=== PATIENT | male | born 1950 | race Caucasian/White ===

== ENCOUNTER 2024-01-09 17:42 | Inpatient (IN) | payer MEDICARE, OTHER, SELFPAY ==
[2024-01-09 12:57] VITALS: BP 183/68
[2024-01-09 14:07] VITALS: BMI 28.4
[2024-01-09 14:25] LABS: % Basophils 0.3 % (0-2); % Eosinophils 0.6 % (0-6); % Immature Granulocytes 0.3 % (0-0.5); % Lymphocytes 5.6 % (20.5-51.1); % Monocytes 6.5 % (1.7-9.3); % Neutrophils 86.7 % (42.2-75.2); Absolute Eosinophils 0.1 10^3/uL (0-0.7); Absolute Lymphocytes 0.7 10^3/uL (1.2-3.4); Absolute Monocytes 0.8 10^3/uL (0.1-0.6); Absolute Neutrophils 10.3 10^3/uL (1.4-6.5); Hematocrit 40.4 % (39.0-52.0); Hemoglobin 12.6 g/dL (13.0-18.0); Mean Corp Hgb Conc. 31.2 g/dL (33.0-37.0); Mean Corpuscular Hgb 28.8 pg (27.0-31.0); Mean Corpuscular Volume 92.2 fL (80.0-94.0); Mean Platelet Volume 11.4 fL (7.4-10.4); Nucleated Red Blood Cells % 0 % (-); Platelet Count 159 10^3/uL (130-400); Red Blood Cell Count 4.38 10^6/uL (4.70-6.10); Red Cell Dist. Width 12.4 % (11.5-14.5); White Blood Cell Count 11.8 10^3/uL (4.8-10.8)
[2024-01-09 14:37] LABS: Lactic Acid 0.9 mmol/L (0.7-2.0)
[2024-01-09 14:38] LABS: ALT (SGPT) 18 U/L (0-50); AST (SGOT) 17 U/L (17-59); Albumin 4.1 g/dl (3.5-5.0); Alkaline Phosphatase 122 U/L (38-126); Blood Urea Nitrogen 43 mg/dl (9-20); Calcium 9.3 mg/dl (8.4-10.2); Carbon Dioxide 22 mmol/L (22-30); Chloride 104 mmol/L (98-107); Estimated Creatinine Clearance 39 ml/min; Glucose 416 mg/dl (70-99); Potassium 4.9 mmol/L (3.5-5.1); Sodium 134 mmol/L (135-145); Total Bilirubin 0.6 mg/dl (0.2-1.3); Total Protein 6.7 g/dl (6.3-8.2); eGFR 42.57
--- NOTE | 2024-01-09 14:51 | ED.SKININJ ---
HPI-Injury
General
Chief Complaint: Skin Problem
Source: patient
Exam Limitations: none
Time Seen by Provider: 01/09/24 13:12
Nursing documentation reviewed up to this point in time: agreed with
Travel History
Have you had any contact with someone who has COVID-19?: No
Do you have any symptoms of coronavirus? Fever > 100 degrees, chills, cough, shortness of breath, sore throat, loss of taste or smell, muscle aches, or headache?: No
History of Present Illness-Injury
Is this injury a work related problem?: No
Is pt an associate of [facility]?: No
Initial Injury comments:
Patient to ED with pain redness and swelling to right foot. States He noticed redness yesterday but unsure how long it has been red. Reports he has a callus on the bottom of his foot that he has been treating on his own. Denies fever/cills.
Brought self to ED for eval.
Past History
Past History
ED Past Medical History: CAD, Hypercholesterolemia and NIDDM
ED Past Surgical History: Cardiac
Social History
Tobacco: Non-smoker
Personal:
Living: with family
Family History
Family History: Other (Noncontributory)
Review of Systems
Review of Systems
Allergies reviewed?: Yes
All Other Systems: ROS reviewed and negative except as documented in HPI and ROS
Constitutional: Reports no symptoms
Musculoskeletal: Reports joint pain (right foot pain)
Skin: Reports no symptoms (pain redness swellint to right foot)
Neurological: Reports no symptoms
Psychiatric: Reports no symptoms
Skin Exam
other
Other:
1.5cm round ulceration to planter aspect of foot. Foul smelling, yellow drainage.
Phy Exam
General Physical Exam
General Presentation: well appearing and mild distress
General age: appears stated age
General Skin: warm and dry
General Habitus: normal
General Mental: alert
Skin Exam
Skin Exam: other (Cellulitis of left foot at MTP joint extending into joint. Ulceration on plantar surface)
Psychiatric Exam
Psychiatric Exam: normal mood/affect
Course
Orders/Labs/Results
Orders:
Orders
01/09/24 13:23
CR Foot - Right Min 3 Views Urgent
Comment:
Reason For Exam: cellulitis
01/09/24 13:24
US Periph Venous LOWER Ext RT Urgent
Comment:
Reason For Exam: right calf pain
01/09/24 14:01
Wound Culture [Wound/Abscess/Other Culture] Urgent
ASHLYN Source: Foot
Specimen Description: Right
Date Specimen was Collected: 01/09/24
Time Specimen was Collected: 13:34
01/09/24 14:13
Complete Blood Count/With Diff Urgent
Comprehensive Metabolic Panel Urgent
Lactic Acid Urgent
Blood Culture Q30M
ASHLYN Source: Blood/Venous
Specimen Description:
Blood Culture Q30M
ASHLYN Source: Blood/Venous
Specimen Description:
01/09/24 15:18
Vancomycin 1 Gram/200 ml [Vancocin] 1 gram in 200 ml IV NOW
01/09/24 17:02
Admit/Transfer Patient As Directed
Co-Sign Provider:
Level of Care: Inpatient admission
Assign to:: Medical/Surgical
Physician / Group: Hospitalist
Diagnosis: Diabetic foot ulcer
Reason for Hospitalization: Diabetic foot ulcer
Expected length of stay greater than two midnights?: Yes
ELOS- Estimated Length of Stay in days: 3
I certify the patient meets the requirements for IP care: Yes
01/09/24 17:04
Code Status As Directed
Resuscitation Status: Full Code
01/09/24 20:09
0.9% Sodium Chloride 1000 ml [Nss] 1,000 ml IV 100 mls/hr
Acetaminophen [Tylenol] 650 mg PO Q4HPRN PRN
Atorvastatin [Lipitor] 40 mg PO QPM
Clotrimazole [Lotrimin 1% Cream] See Dose Instructions TOPICAL DAILYPRN PRN
Heparin 5,000 units SC Q12
Nitroglycerin Sublingual [Nitrostat (Sublingual)] 0.4 mg SL [id number] PRN
Prednisolone Acetate [Pred Forte 1% Eye Drops] 1 drop LEFT EYE BID
VANCOMYCIN Pharmacy to Dose [VANCOCIN Pharmacy to Dose] 1 each Pharmacy To Prepare [Call Pharmacy To Prepare] 0 ml IV PER PROTOCOL
01/09/24 20:09
PODIATRY CONSULT Routine
Consulting Provider: Jaswant Moy
Was physician already notified: Yes
Reason for consult: diabetic foot ulcer
Activity As Directed
Activity Level: Out of Bed-Early Mobility
Intake/ Output As Directed
Frequency: Per unit guidelines
Vital Signs As Directed
Frequency: Per unit guidelines
DX Deep Vein Thrombosis Video Routine
01/09/24 22:00
Ampicillin/Sulbactam 3 G [Unasyn] 3 gm 0.9% Sodium Chloride 100 ml [Nss] 100 ml IV Q6
01/10/24 Breakfast
2000 calorie (17 carb) Diabetic
At Your Request: Full Participation
01/10/24 06:13
Basic Metabolic Panel IN AM
Complete Blood Count/No Diff IN AM
01/10/24 08:00
Aspirin Chewable [Low Strength Aspirin] 81 mg PO DAILY
Clopidogrel Bisulfate [Plavix] 75 mg PO DAILY
Empagliflozin [Jardiance] 10 mg PO DAILY
GlipiZIDE [Glucotrol] 5 mg PO BID@0800,1700
Losartan [Cozaar] 25 mg PO DAILY
Multivitamin [Theragran] 1 tablet PO DAILY
Prednisolone Acetate [Pred Forte 1% Eye Drops] 1 drop RIGHT EYE DAILY
Abnormal Lab Results
01/09/24
14:13
WBC 11.8 H 10^3/uL
(4.8-10.8)
RBC 4.38 L 10^6/uL
(4.70-6.10)
Hgb 12.6 L g/dL
(13.0-18.0)
MCHC 31.2 L g/dL
(33.0-37.0)
MPV 11.4 H fL
(7.4-10.4)
Absolute Neuts (auto) 10.3 H 10^3/uL
(1.4-6.5)
Absolute Lymphs (auto) 0.7 L 10^3/uL
(1.2-3.4)
Absolute Monos (auto) 0.8 H 10^3/uL
(0.1-0.6)
Neutrophils % 86.7 H %
(42.2-75.2)
Lymphocytes % 5.6 L %
(20.5-51.1)
Sodium 134 L mmol/L
(135-145)
BUN 43 H mg/dl
(9-20)
Creatinine 1.7 H mg/dL
(0.7-1.3)
Glucose 416 H mg/dl
(70-99)
01/09/24 14:13
01/09/24 14:13
Vital Signs
Initial and Last Documented VS:
Initial Vital Signs
Temp Pulse Resp BP Pulse Ox
98.6 F 87 16 183/68 98
01/09/24 12:57 01/09/24 12:57 01/09/24 12:57 01/09/24 12:57 01/09/24 12:57
Last Documented Vital Signs
Temp Pulse Resp BP Pulse Ox
98.9 F 84 16 137/63 94
01/10/24 07:40 01/10/24 07:40 01/10/24 07:40 01/10/24 07:40 01/10/24 07:40
*Radiology
Radiology exam reviewed: radiology read reviewed
*Pulse Oximetry
Patient hypoxic: no
*Critical Care Note
Total Time (30-74mins, 75-104mins- exclusive of procedures): Not Applicable
Update Note
Update Note:
Patient to ED with complaint of pain and redness to right foot. Unsure of when redness started, noticed redness yesterday. On exam today he has red involving great toe thru dorsum of right foot. Foot is painful. Ball of foot has a 1.5cm round
ulceration, foul smelling with yellow drainage. Culture obtained. He had no knowledge of ulceration, thought he had a callus there. Patient to be admitted to hospitalist service. ANtibiotics started in dept.
ED Attending Note
-
Portions of this chart may have been created with voice recognition software.� Occasional wrong word or��sound alike� substitutions may have occurred due to the inherent limitations of voice recognition software.
Discharge Plan
Departure
Patient Disposition: Admit
Date of Disposition: 01/09/24
Time of Disposition: 15:19
Presentation/result/management discussed w/ accepting MD/DO: Hospitalist
Patient with high blood pressure during this ER visit?: No
Condition: Fair
Covid-19: Not Applicable
Discharge Problem:
Cellulitis of foot, Diabetic foot ulcer
Interventions
Interventions:
*Risk Screen - Suicide Last Done: 01/09/24 22:28
*General Assessment Last Done: 01/09/24 12:57
*Neglect/Abuse Screening Last Done: 01/09/24 12:57
ED- Fall Risk Assessment Last Done: 01/09/24 14:09
*ED COVID-19 Vaccine History Last Done: 01/09/24 22:28
*Nursing Disposition Last Done: 01/09/24 19:23
ED-Skin Assessment Last Done: 01/09/24 14:09
Discharge Date and Time
Discharge Date/Time: 01/09/24 19:23
[2024-01-09] MEDS: VANCOCIN 200 IV ×2 (15:43→21:55)
[2024-01-09 16:03] VITALS: BP 159/84
--- NOTE | 2024-01-09 16:48 | HPS.HSE ---
Family Physician
-
Family Physician: Oneal Briggs
Chief Complaint
-
Foot infection
History of Present Illness
73 man with pain and redness and swelling to right foot. He noticed redness yesterday but is unsure how long it has been red. He has had a callus on the bottom of his foot that he has been treating on his own. He Denies fever/chills. 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
Medical History
Past Medical History
Past Medical History: Reports Other
Additional Past Medical History:
CAD,
Hypercholesterolemia
NIDDM
Cardiac surgery
Past Surgical History: Reports Other
Additional Past Surgical History:
cardiac surgery
Social History
Tobacco: Non-smoker
Alcohol: Occasional
Drug: None
Personal:
Living: With Family
Family History
Family History: Not pertinent
Allergies / Home Medications
Allergies reflects when Allergies were last updated in [employer].
Home Medications with original date entered in [employer]
Allergy/Medication List:
Allergies
Allergy/AdvReac Type Severity Reaction Status Date / Time
Iodinated Contrast Media Allergy Rash Verified 01/09/24 12:57
latex Allergy Rash Verified 01/09/24 12:57
silk Allergy Rash Verified 01/09/24 12:57
propoxyphene napsylate AdvReac other Verified 01/09/24 12:57
[From Darvocet-N]
Home Medications
metformin 1,000 mg tablet 1,000 mg PO BID@0800,1700 Diabetes 11/27/16
aspirin 81 mg chewable tablet 81 mg PO DAILY 12/30/16
clopidogrel 75 mg tablet 75 mg PO DAILY ##30 12/30/16
nitroglycerin 0.4 mg sublingual tablet 0.4 mg sublingual [id number] PRN chest pain ##25 12/30/16
losartan 25 mg tablet 25 mg PO DAILY Heart disease/condition 01/19/22
glipizide 5 mg tablet 5 mg PO BID@0800,1700 30 days #60 tabs 01/22/22
atorvastatin 40 mg tablet 40 mg PO QPM High cholesterol 09/05/22
clotrimazole 1 % topical cream (Antifungal (clotrimazole)) 1 applic topical DAILYPRN PRN both feet 09/05/22
empagliflozin 10 mg tablet (Jardiance) 10 mg PO DAILY Diabetes 09/05/22
prednisolone acetate 1 % eye drops,suspension 1 drp RIGHT EYE DAILY Eye condition 09/05/22
sildenafil 100 mg tablet 100 mg PO DAILY PRN ED 09/05/22
therapeutic multivitamin 1 tab PO DAILY Supplement 09/05/22
prednisolone acetate 1 % eye drops,suspension 1 drp LEFT EYE BID 01/09/24
Review of Systems
-
History Source: Patient
A 12 point ROS was completed and negative except as noted: Yes
Physical Exam
Vital Signs
Vital Signs
Temp Pulse Resp BP Pulse Ox
99.8 F 83 16 159/84 98
01/09/24 16:03 01/09/24 16:03 01/09/24 16:03 01/09/24 16:03 01/09/24 16:03
Physical Exam
General: Well Developed, Well Nourished, No Apparent Distress, Comfortable and Conversant
HEENT: NormoCephalic, No Ptosis and Nose Appears Normal
Respiratory: Clear
Cardiac: S1/S2 and Regular Rhythm
GI: Soft, Non Tender and Non Distended
Musculoskeletal: No Clubbing, No Cyanosis and No Edema
Skin: Warm and Dry; No Rash or Jaundice
Neuro: Awake, Alert, Oriented and AO x 3
Psych: Calm
Laboratory Results
-
01/09/24 14:13
01/09/24 14:13
Laboratory Results
Lactic Acid 0.9 mmol/L (0.7-2.0) 01/09/24 14:13
Total Bilirubin 0.6 mg/dl (0.2-1.3) 01/09/24 14:13
AST 17 U/L (17-59) 01/09/24 14:13
ALT 18 U/L (0-50) 01/09/24 14:13
Alkaline Phosphatase 122 U/L (38-126) 01/09/24 14:13
Data Reviewed
-
Lab Data: Labs Reviewed by me
Impression/Plan
-
IMPRESSION:
73 man with diabetic foot ulcer and cellulitis
PLAN:
1. Diabetic foot ulcer
Check A1c
Insulin as needed
Podiatry consult
Antibiotics per protocol (vanco given)
2. Cellulitis
IV antibiotics
3. BUN/Creatinine of 43(at baseline)/1.7 (baseline 1.3), likely MARTINEZ
IV fluids
Recheck in am
4. Mild hyponatremia of 134, likely hypovolemia
IV fluids
Recheck in am
Full code
Heparin for DVTp
[2024-01-09 18:41] VITALS: BP 146/73
--- NOTE | 2024-01-09 20:14 | PHA.VAN.IN ---
Assessment
- Assessment
Renal Function: Unknown baseline (likely elevated from baseline, currently 1.7 vs ranged 1-.3 in 2021)
Concomitant Antimicrobials: ampicillin/sulbactam
Plan
- Plan
Initial / Loading Dose: 2000mg 01/08 (1g at 15:43 PLUS 1g - admin pending)
Maintenance Regimen: dosing by level
Monitoring: random 01/09 06
Pharmacokinetics Vancomycin I
- -
Patient Age: 73
Patient Sex: Male
Vancomycin Day #: 1
Indication: Skin And Soft Tissue
Requesting Provider: Dr. Barillas
Pertinent Antimicrobial Allergies:
no pertinent antibiotic allergies
Height / Weight:
Height 5 ft 8 in
Actual Weight 84.6 kg
Pertinent Past Medical History: DM
- Vital Signs / Lab Results
Temp Pulse Resp BP Pulse Ox
99.8 F 81 16 146/73 99
01/09/24 16:03 01/09/24 18:41 01/09/24 18:41 01/09/24 18:41 01/09/24 18:41
Lab Results - Hematology
01/09/24
14:13
WBC 11.8 H
Lab Results - Chemistry
01/09/24
14:13
BUN 43 H
Creatinine 1.7 H
Estimated Creat Clear 39
Albumin 4.1
01/09/24
14:13
Lactic Acid 0.9
[2024-01-09 20:55] VITALS: BP 153/71
--- NOTE | 2024-01-09 21:30 | PTCARENOTE ---
Patient admitted from ED. Patient is AAO x3, on RA, in no acute distress. Patient oriented to room and call george is within reach.
--- NOTE | 2024-01-09 21:30 | PTCARENOTE ---
Patient admitted from ED
[2024-01-09] MEDS: LIPITOR 40 MG PO (21:54)
[2024-01-09] MEDS: HEPARIN 5000 UNITS SC (21:54)
[2024-01-09] MEDS: PRED FORTE 1% EYE DROPS 1 DROP LEFT EYE (21:54)
[2024-01-09] MEDS: NSS 1000 IV (21:56)
[2024-01-09] MEDS: TYLENOL 650 MG PO (22:20)
[2024-01-09 22:57] LABS: Glucose - Point of Care 320 mg/dl (70-99)
[2024-01-09] MEDS: NOVOLOG FLEXPEN 4 UNITS SC (23:21)
[2024-01-09] MEDS: UNASYN IV (23:22)
[2024-01-09 23:25] VITALS: BP 129/66
[2024-01-10] MEDS: UNASYN IV ×4 (06:05→23:09)
[2024-01-10] MEDS: NSS 1000 IV ×2 (06:05→23:16)
[2024-01-10 07:40] VITALS: BP 137/63
[2024-01-10 08:49] LABS: Hematocrit 37.8 % (39.0-52.0); Hemoglobin 12.1 g/dL (13.0-18.0); Mean Corpuscular Hgb 28.7 pg (27.0-31.0); Mean Corpuscular Volume 89.8 fL (80.0-94.0); Mean Platelet Volume 11.9 fL (7.4-10.4); Platelet Count 151 10^3/uL (130-400); Red Blood Cell Count 4.21 10^6/uL (4.70-6.10); Red Cell Dist. Width 12.4 % (11.5-14.5); White Blood Cell Count 8.1 10^3/uL (4.8-10.8)
--- NOTE | 2024-01-10 08:59 | W.CS.POD ---
Consult Summary - Podiatry
-
Pt seen bedside for diabetic neuropathic ulcer and high glucose He noticed the redness a couple of days ago. He was unaware that he had an ulcer on his foot. He sees Tania Gambino DPM regularly but it has been two months since his last visit
cellulitis right foot with necrotic ulcer sub 1, foul odor, deep ulcer, no probe to bone
x-ray negative for osteomyelitis
recommend MRI to rule out osteomyelitis
sharp debridement of ulcer bandage applied
will follow tomorrow and results of MRI
if positive for osteo will recommend surgical debridement
[2024-01-10 09:05] LABS: Vancomycin Random 14.2 ug/ml
[2024-01-10 09:10] LABS: Blood Urea Nitrogen 35 mg/dl (9-20); Calcium 8.7 mg/dl (8.4-10.2); Carbon Dioxide 20 mmol/L (22-30); Chloride 110 mmol/L (98-107); Estimated Creatinine Clearance 44 ml/min; Glucose 209 mg/dl (70-99); Potassium 4.1 mmol/L (3.5-5.1); Sodium 137 mmol/L (135-145); eGFR 49.47
[2024-01-10] MEDS: THERAGRAN 1 TABLET PO (09:11)
[2024-01-10] MEDS: JARDIANCE 10 MG PO (09:11)
[2024-01-10] MEDS: GLUCOTROL 5 MG PO ×2 (09:11→17:44)
[2024-01-10] MEDS: LOW STRENGTH ASPIRIN 81 MG PO (09:11)
[2024-01-10] MEDS: COZAAR 25 MG PO (09:11)
[2024-01-10] MEDS: PLAVIX 75 MG PO (09:11)
[2024-01-10] MEDS: PRED FORTE 1% EYE DROPS 1 DROP LEFT EYE ×2 (09:12→19:55)
[2024-01-10] MEDS: PRED FORTE 1% EYE DROPS 1 DROP RIGHT EYE (09:12)
[2024-01-10] MEDS: HEPARIN 5000 UNITS SC ×2 (09:12→19:56)
--- NOTE | 2024-01-10 11:07 | PHA.VAN.FU ---
Vancomycin Assessment / Plan
- Assessment
Renal Function: SCR Decreasing
WBC's are: Trending Down
In the past 24 hrs, patient has been: Afebrile
Concomitant Antimicrobials: Ampicillin-sulbactam
- Assessment - Therapeutic Drug Monitoring
Random Level: R = 14.2 ~ 8hrs after split 2gm load (1gm 1543, 1gm 2155)
- Dosing Plan
Continue: Dosing by level
Dosing by Level: Re-dose today (Vanc 1gm (11.8mg/kg))
- Monitoring Plan
Random Level: 4/1 AM
- Follow Up
Pharmacy will continue to follow.
Vancomycin Follow UP
- -
Patient Age: 73
Patient Sex: Male
Vancomycin Day #: 2
Indication: Skin And Soft Tissue
Requesting Provider: Dr. Barillas
Pertinent Antimicrobial Allergies:
no pertinent antibiotic allergies
Height / Weight:
Height 5 ft 8 in
Actual Weight 84.6 kg
Pertinent Past Medical History: DM
- Vital Signs / Lab Results
Temp Pulse Resp BP Pulse Ox
98.9 F 84 16 137/63 94
01/10/24 07:40 01/10/24 07:40 01/10/24 07:40 01/10/24 07:40 01/10/24 07:40
Lab Results - Hematology
01/09/24 01/10/24
14:13 06:13
WBC 11.8 H 8.1
Lab Results - Chemistry
01/09/24 01/10/24
14:13 06:13
BUN 43 H 35 H
Creatinine 1.7 H 1.5 H
Estimated Creat Clear 39 44
Albumin 4.1
01/09/24
14:13
Lactic Acid 0.9
Therapeutic Drug Monitoring
Random Vancomycin 14.2 ug/ml 01/10/24 06:13
[2024-01-10] MEDS: VANCOCIN 200 IV (13:00)
--- NOTE | 2024-01-10 14:44 | W.PN.HOSP.TC ---
Today's Communication/Plan
-
f/u cultures
mrsa swab
ivf
abx
Assessment / Plan
Assessment / Plan
Physical Exam
General: Well Developed, Well Nourished, No Apparent Distress, Comfortable and Conversant
HEENT: NormoCephalic, No Ptosis and Nose Appears Normal
Respiratory: Clear
Cardiac: S1/S2 and Regular Rhythm
GI: Soft, Non Tender and Non Distended
Musculoskeletal: No Clubbing, No Cyanosis and No Edema
Skin: Warm and Dry; No Rash or Jaundice
Neuro: Awake, Alert, Oriented and AO x 3
Psych: Calm
73 man with diabetic foot ulcer and cellulitis
PLAN:
#Diabetic foot ulcer
#Sepsis
#Cellulitis
Check A1c
AISS
Podiatry consult
Antibiotics per protocol (vanco given)
MRI with no evidence of osteo
F/u cultures
MRSA swab
#MARTINEZ
-prenal v septic atn
-monitor with fluids
#Mild hyponatremia
-monitor with resuscitation
#DM
-AISS
cont jardiance, glipizide
#HTN
#HLD
-cont home meds
although hold arb
Full code
Heparin for DVT
Total time spent on today's encounter was 50 minutes which included time spent in counseling the patient/family regarding diagnosis and treatment plan as listed above, goals of care, and symptom management. Case was discussed with nursing staff,
specialists, and care coordinators/case management. All labs and imaging personally reviewed by me. Remainder the time spent in detailed review of previous records, lab data, imaging, and other medical provider documentation.
Anticipated Discharge: > 48 hours
Subjective/Interval History
-
Date of Service: January 10, 2024
no acute events; Podiatry saw patient - sharp debridement of ulcer and bandage applied
Objective Data
-
Labs:
Laboratory Results
01/10/24
06:13
WBC 8.1
Hgb 12.1 L
Hct 37.8 L
Plt Count 151
Sodium 137
Potassium 4.1
Chloride 110 H
Carbon Dioxide 20 L
BUN 35 H
Creatinine 1.5 H
Glucose 209 H
Calcium 8.7
Vital Signs:
Vital Signs
Temp Pulse Resp BP Pulse Ox
98.9 F 84 16 137/63 94
01/10/24 07:40 01/10/24 07:40 01/10/24 07:40 01/10/24 07:40 01/10/24 07:40
I&O
01/09/24 01/10/24 01/11/24
06:59 06:59 06:59
Output Total 600 / 600
Balance -600 / -600
Review of Systems
-
History Source: Patient
All other systems: Not reviewed unless documented
Physical Exam
-
General: Well Developed
HEENT: Normocephalic
Respiratory: Clear to Auscultation
Cardiac: Regular Rhythm
GI: Soft
Genito-urinary: No Costovertebral Tender
Musculoskeletal: Normal Gait & Station
Psych: Calm
Data Reviewed
-
Diagnostic Radiology: Image personally visualized and interpreted and Report Reviewed by me
Ultrasound: Report Reviewed by me
MRI: Image personally visualized and interpreted and Report Reviewed by me
Labs: Labs Reviewed by me
[2024-01-10 15:13] VITALS: BP 156/66
[2024-01-10 16:49] LABS: Glucose - Point of Care 307 mg/dl (70-99)
[2024-01-10] MEDS: NOVOLOG FLEXPEN-LOW RESISTANCE 4 UNITS SC (17:43)
[2024-01-10] MEDS: LIPITOR 40 MG PO (17:44)
[2024-01-10] MEDS: NSS IV (19:54)
[2024-01-10 22:36] LABS: Glucose - Point of Care 232 mg/dl (70-99)
[2024-01-10 23:00] VITALS: BP 143/53
[2024-01-11] MEDS: UNASYN IV ×4 (05:00→23:18)
[2024-01-11 06:41] LABS: Hematocrit 37.6 % (39.0-52.0); Hemoglobin 11.9 g/dL (13.0-18.0); Mean Corp Hgb Conc. 31.6 g/dL (33.0-37.0); Mean Corpuscular Hgb 28.6 pg (27.0-31.0); Mean Corpuscular Volume 90.4 fL (80.0-94.0); Mean Platelet Volume 11.5 fL (7.4-10.4); Platelet Count 148 10^3/uL (130-400); Red Blood Cell Count 4.16 10^6/uL (4.70-6.10); Red Cell Dist. Width 12.2 % (11.5-14.5); White Blood Cell Count 7.8 10^3/uL (4.8-10.8)
[2024-01-11 07:01] LABS: Blood Urea Nitrogen 33 mg/dl (9-20); Calcium 9.1 mg/dl (8.4-10.2); Carbon Dioxide 22 mmol/L (22-30); Chloride 109 mmol/L (98-107); Estimated Creatinine Clearance 50 ml/min; Glucose 154 mg/dl (70-99); Potassium 4.3 mmol/L (3.5-5.1); Sodium 140 mmol/L (135-145); eGFR 58.73
[2024-01-11 07:28] LABS: Vancomycin Random 12.7 ug/ml
[2024-01-11 07:35] VITALS: BP 154/75
[2024-01-11 07:40] LABS: Glucose - Point of Care 153 mg/dl (70-99)
--- NOTE | 2024-01-11 08:26 | W.PN.POD ---
Today's Communication
Today's Communication
foot ulcer is stable for discharge pending wound culture results
Assessment / Plan
-
recommend he follow up with wound care center
recommend wedge shoe for discharge
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
Subjective
Chief Complaint
infected diabetic ulcer right foot, MRI had no evidence of osteomyelitis , wound culture pending
Subjective
no pain in the foot, resting comfortably
Objective
Temp Pulse Resp BP Pulse Ox
98.4 F 78 17 154/75 97
01/11/24 07:35 01/11/24 07:35 01/11/24 07:35 01/11/24 07:35 01/11/24 07:35
01/11/24 06:17
01/11/24 06:17
Vital Signs and Lab results were reviewed.
Review of Systems
Review of Systems
Review of Systems: No Fever and No Chills
Physical Exam
Physical Exam
Skin: Warm, Necrotic and Neurotrophic Ulcer
Neuro: AO x 3
Vascular: Skin Temperature Warm to Warm
Dorsalis Pedis: Diminished
Posterior Tibialis: Diminished
[2024-01-11 08:46] LABS: Glycohemoglobin (HgbA1c) 8.5 % (4.0-5.6)
--- NOTE | 2024-01-11 09:17 | PHA.VAN.FU ---
Vancomycin Assessment / Plan
- Assessment
Renal Function: SCR Decreasing
WBC's are: WNL
In the past 24 hrs, patient has been: Afebrile
Concomitant Antimicrobials: Ampicillin/Sulbatam
- Assessment - Therapeutic Drug Monitoring
Random Level: 12.7
- Dosing Plan
Dosing by Level: Re-dose today (1000mg)
- Monitoring Plan
Random Level: Ordered for 01/12/24 @0600
- Follow Up
Pharmacy will continue to follow.
Vancomycin Follow UP
- -
Patient Age: 73
Patient Sex: Male
Vancomycin Day #: 3
Indication: Skin And Soft Tissue
Requesting Provider: Dr. Barillas, Dr. Le
Pertinent Antimicrobial Allergies:
no pertinent antibiotic allergies
Height / Weight:
Height 5 ft 8 in
Actual Weight 84.6 kg
Pertinent Past Medical History: DM
- Vital Signs / Lab Results
Temp Pulse Resp BP Pulse Ox
98.4 F 78 17 154/75 97
01/11/24 07:35 01/11/24 07:35 01/11/24 07:35 01/11/24 07:35 01/11/24 07:35
Lab Results - Hematology
01/09/24 01/10/24 01/11/24
14:13 06:13 06:17
WBC 11.8 H 8.1 7.8
Lab Results - Chemistry
01/09/24 01/10/24 01/11/24
14:13 06:13 06:17
BUN 43 H 35 H 33 H
Creatinine 1.7 H 1.5 H 1.3
Estimated Creat Clear 39 44 50
Albumin 4.1
01/09/24
14:13
Lactic Acid 0.9
Microbiology Results
01/09/24 14:13 Blood Culture - Preliminary
Blood/Venous No Growth in 24 hours- Final report to follow
01/09/24 14:01 Wound Culture - Preliminary
Foot - Right Gram Stain - Preliminary
01/09/24 14:13 Blood Culture - Preliminary
Blood/Venous No Growth in 24 hours- Final report to follow
Therapeutic Drug Monitoring
Random Vancomycin 12.7 ug/ml 01/11/24 06:17
[2024-01-11] MEDS: NSS 1000 IV (09:49)
[2024-01-11] MEDS: NOVOLOG FLEXPEN-LOW RESISTANCE 1 UNITS SC (09:50)
[2024-01-11] MEDS: HEPARIN 5000 UNITS SC ×2 (09:50→21:17)
[2024-01-11] MEDS: JARDIANCE 10 MG PO (09:51)
[2024-01-11] MEDS: PRED FORTE 1% EYE DROPS 1 DROP LEFT EYE ×2 (09:51→21:18)
[2024-01-11] MEDS: PRED FORTE 1% EYE DROPS 1 DROP RIGHT EYE (09:51)
[2024-01-11] MEDS: LOW STRENGTH ASPIRIN 81 MG PO (09:51)
[2024-01-11] MEDS: THERAGRAN 1 TABLET PO (09:51)
[2024-01-11] MEDS: GLUCOTROL 5 MG PO ×2 (09:51→18:46)
[2024-01-11] MEDS: PLAVIX 75 MG PO (09:51)
[2024-01-11] MEDS: VANCOCIN 200 IV (10:00)
--- NOTE | 2024-01-11 12:13 | W.PN.HOSP.TC ---
Today's Communication/Plan
-
await final wound cultures
abx
anticipate dc within 24 hours
Assessment / Plan
Assessment / Plan
Physical Exam
General: Well Developed, Well Nourished, No Apparent Distress, Comfortable and Conversant
HEENT: NormoCephalic, No Ptosis and Nose Appears Normal
Respiratory: Clear
Cardiac: S1/S2 and Regular Rhythm
GI: Soft, Non Tender and Non Distended
Musculoskeletal: No Clubbing, No Cyanosis and No Edema
Skin: Warm and Dry; No Rash or Jaundice
Neuro: Awake, Alert, Oriented and AO x 3
Psych: Calm
73 man with diabetic foot ulcer and cellulitis
PLAN:
#Diabetic foot ulcer
#Sepsis
#Cellulitis
Podiatry consult -ntd at this time
F/u wound care outpatient
Wedge shoe for discharge
Follow up is/it project manager this week
Still pending final wound culture results
Cont Unasyn
MRI with no evidence of osteo
F/u cultures
#MARTINEZ
-prenal v septic atn
-monitor with fluids - resolving
#Mild hyponatremia
-monitor with resuscitation
-resolving
#DM
-AISS
cont jardiance, glipizide
Check A1c - 8.5; DM educator consulted
#HTN
#HLD
-cont home meds
although hold arb
Full code
Heparin for DVT ppx
Anticipated Discharge: Within 24 hours
Subjective/Interval History
-
Date of Service: January 11, 2024
mri neg for osteo
Objective Data
-
Labs:
Laboratory Results
01/11/24
06:17
WBC 7.8
Hgb 11.9 L
Hct 37.6 L
Plt Count 148
Sodium 140
Potassium 4.3
Chloride 109 H
Carbon Dioxide 22
BUN 33 H
Creatinine 1.3
Glucose 154 H
Calcium 9.1
Vital Signs:
Vital Signs
Temp Pulse Resp BP Pulse Ox
98.4 F 78 17 154/75 97
01/11/24 07:35 01/11/24 07:35 01/11/24 07:35 01/11/24 07:35 01/11/24 07:35
I&O
01/10/24 01/11/24 01/12/24
06:59 06:59 06:59
Intake Total 3200 / 3200
Output Total 600 / 600 850 / 850
Balance -600 / -600 2350 / 2350
Review of Systems
-
History Source: Patient
All other systems: Not reviewed unless documented
Physical Exam
-
General: Well Developed
HEENT: Normocephalic
Respiratory: Clear to Auscultation
Cardiac: Regular Rhythm
GI: Soft
Genito-urinary: No Costovertebral Tender
Musculoskeletal: Normal Gait & Station
Psych: Calm
Data Reviewed
-
Diagnostic Radiology: Image personally visualized and interpreted and Report Reviewed by me
Ultrasound: Report Reviewed by me
MRI: Image personally visualized and interpreted and Report Reviewed by me
Labs: Labs Reviewed by me
[2024-01-11 12:18] LABS: Glucose - Point of Care 286 mg/dl (70-99)
[2024-01-11] MEDS: NOVOLOG FLEXPEN-LOW RESISTANCE 3 UNITS SC (13:23)
--- NOTE | 2024-01-11 15:18 | PTCARENOTE ---
TT rolan Quinones Douse to notify of request for Diabetic teaching per Dr. Mimi abel.
[2024-01-11 15:24] VITALS: BP 153/69
[2024-01-11 16:21] LABS: Glucose - Point of Care 229 mg/dl (70-99)
--- NOTE | 2024-01-11 16:33 | CM ---
site acquisition manager reviewed patient's chart and met with patient and patient lives with his spouse in a 2 story home, patient is independent with adl's and ambulation, patient has glucometer and shower chair in home, per patient he has a follow up with
podiatry after discharge, and dose not feel he will need visiting nurses.
Pharmacy; [facility]
PCP: Dr. Briggs
Plan; Home with spouse no needs.
[2024-01-11] MEDS: NOVOLOG FLEXPEN-LOW RESISTANCE 2 UNITS SC (18:44)
[2024-01-11] MEDS: LIPITOR 40 MG PO (18:45)
[2024-01-11 23:00] VITALS: BP 137/50
[2024-01-12] MEDS: UNASYN IV ×2 (06:17→11:50)
[2024-01-12 07:01] LABS: Glucose - Point of Care 89 mg/dl (70-99)
[2024-01-12] MEDS: NOVOLOG FLEXPEN-LOW RESISTANCE SC (07:49)
[2024-01-12 07:52] LABS: Hematocrit 36.3 % (39.0-52.0); Hemoglobin 11.7 g/dL (13.0-18.0); Mean Corp Hgb Conc. 32.2 g/dL (33.0-37.0); Mean Corpuscular Hgb 28.5 pg (27.0-31.0); Mean Corpuscular Volume 88.3 fL (80.0-94.0); Mean Platelet Volume 11.6 fL (7.4-10.4); Platelet Count 155 10^3/uL (130-400); Red Blood Cell Count 4.11 10^6/uL (4.70-6.10); Red Cell Dist. Width 12.1 % (11.5-14.5); White Blood Cell Count 7.3 10^3/uL (4.8-10.8)
[2024-01-12 08:16] LABS: Vancomycin Random 11.4 ug/ml
[2024-01-12 08:28] LABS: Blood Urea Nitrogen 30 mg/dl (9-20); Calcium 8.9 mg/dl (8.4-10.2); Carbon Dioxide 22 mmol/L (22-30); Chloride 110 mmol/L (98-107); Estimated Creatinine Clearance 47 ml/min; Glucose 93 mg/dl (70-99); Potassium 4.2 mmol/L (3.5-5.1); Sodium 138 mmol/L (135-145); eGFR 53.74
[2024-01-12 08:39] VITALS: BP 145/76
[2024-01-12] MEDS: LOW STRENGTH ASPIRIN 81 MG PO (09:35)
[2024-01-12] MEDS: HEPARIN 5000 UNITS SC (09:35)
[2024-01-12] MEDS: GLUCOTROL 5 MG PO (09:35)
[2024-01-12] MEDS: THERAGRAN 1 TABLET PO (09:35)
[2024-01-12] MEDS: JARDIANCE 10 MG PO (09:35)
[2024-01-12] MEDS: PRED FORTE 1% EYE DROPS 1 DROP LEFT EYE (09:35)
[2024-01-12] MEDS: PLAVIX 75 MG PO (09:35)
[2024-01-12] MEDS: PRED FORTE 1% EYE DROPS 1 DROP RIGHT EYE (09:35)
--- NOTE | 2024-01-12 10:32 | PN.DE.MGMTRT ---
Insulin Management
- -
01/12/2024 Diabetes Management Consult
Patient admitted 01/08 for R foot swelling and redness. PMH CAD, HCL, type 2 diabetes since 2001. A1C on admission 8.5%, cr 1.3, eGFR 58.73, BIN 33.
Patient is awake, alert and oriented, able to discuss his diabetes management. Prior to admission was taking glipizide 5 mg BID with Jardiance 10 mg daily and metformin 1000 BID. Metformin is currently being held. Will make no change to current
regimen
Glucose yesterday was as high as 299. This AM glucose is 89. Talked with patient at length about amount of CHO he consumes at each meal, he admits he has been taking excess carbs and will focus on increasing protein.
Patient sees BASHIR Briggs at [facility]. He has a working glucose monitor. Instructed to test before breakfast and 2 hours after each meal.
Patient for possible discharge.
Diabetes History
- -
Type of Diabetes: 2
Pre-Admission Diabetes Regimen
01/12/24
07:33
Creatinine 1.4 H
Lab Results
Hemoglobin A1c 8.5 % (4.0-5.6) H 01/11/24 06:17
Insulin Pump Settings
IP Diabetes Regimen
01/11/24 01/11/24 01/12/24
12:10 16:20 06:59
Glucose
POC Glucose 286 H 229 H 89
01/12/24
07:33
Glucose 93
POC Glucose
Meal type: Dinner
Meal type: Lunch
Meal type: Breakfast
Amount consumed: 100%
Amount consumed: 100%
Amount consumed: 100%
Patient Education
--- NOTE | 2024-01-12 10:41 | PHA.VAN.FU ---
Vancomycin Assessment / Plan
- Assessment
Renal Function: Stable
WBC's are: WNL
In the past 24 hrs, patient has been: Afebrile
Concomitant Antimicrobials: ampicillin/sulbactam
- Assessment - Therapeutic Drug Monitoring
Random Level: 11.4 - drawn ~21.5H after previous dose of 1000mg
- Dosing Plan
Dosing by Level: Re-dose today (Vanc 1250mg)
Dosing Comments: level has steadily decreased with 1g daily dosing - trial higher dosing
- Monitoring Plan
Random Level: 01/12 0600
- Follow Up
Pharmacy will continue to follow.
Vancomycin Follow UP
- -
Patient Age: 73
Patient Sex: Male
Vancomycin Day #: 4
Indication: Skin And Soft Tissue
Requesting Provider: Dr. Barillas
Pertinent Antimicrobial Allergies:
no pertinent antibiotic allergies
Height / Weight:
Height 5 ft 8 in
Actual Weight 84.6 kg
Pertinent Past Medical History: DM
- Vital Signs / Lab Results
Temp Pulse Resp BP Pulse Ox
98.9 F 72 16 145/76 97
01/12/24 08:39 01/12/24 08:39 01/12/24 08:39 01/12/24 08:39 01/12/24 08:39
Lab Results - Hematology
01/09/24 01/10/24 01/11/24
14:13 06:13 06:17
WBC 11.8 H 8.1 7.8
01/12/24
07:33
WBC 7.3
Lab Results - Chemistry
01/09/24 01/10/24 01/11/24
14:13 06:13 06:17
BUN 43 H 35 H 33 H
Creatinine 1.7 H 1.5 H 1.3
Estimated Creat Clear 39 44 50
Albumin 4.1
01/12/24
07:33
BUN 30 H
Creatinine 1.4 H
Estimated Creat Clear 47
Albumin
01/09/24
14:13
Lactic Acid 0.9
Microbiology Results
01/10/24 16:15 MRSA Screen - Final
Nose No Methicillin Resistant Staphylococcus aureus isolated.
01/09/24 14:01 Wound Culture - Preliminary
Foot - Right Gram negative bacilli
Staphylococcus species
Gram Stain - Preliminary
01/09/24 14:13 Blood Culture - Preliminary
Blood/Venous No Growth in 48 hours- Final report to follow
01/09/24 14:13 Blood Culture - Preliminary
Blood/Venous No Growth in 48 hours- Final report to follow
Therapeutic Drug Monitoring
Random Vancomycin 11.4 ug/ml 01/12/24 07:33
[2024-01-12 11:26] LABS: Glucose - Point of Care 215 mg/dl (70-99)
--- NOTE | 2024-01-12 11:29 | PTCARENOTE ---
Report given and Pt care passed onto RIGOBERTO Bautista for remainder of this shift
[2024-01-12] MEDS: NOVOLOG FLEXPEN-LOW RESISTANCE 2 UNITS SC (11:47)
[2024-01-12] MEDS: VANCOCIN 275 MG IV (12:22)
--- NOTE | 2024-01-12 13:22 | W.PN.HOSP.TC ---
Addendum entered and electronically signed by Paula Castorena MD 01/12/24 14:58:
total DC time 35 min
Original Note:
Today's Communication/Plan
-
see A/P
Assessment / Plan
Assessment / Plan
Physical Exam
General: Well Developed, Well Nourished, No Apparent Distress, Comfortable and Conversant
HEENT: NormoCephalic, No Ptosis and Nose Appears Normal
Respiratory: Clear
Cardiac: S1/S2 and Regular Rhythm
GI: Soft, Non Tender and Non Distended
Musculoskeletal: No Clubbing, No Cyanosis and No Edema
Skin: Warm and Dry; No Rash or Jaundice
Neuro: Awake, Alert, Oriented and AO x 3
Psych: Calm
73 man with diabetic foot ulcer and cellulitis
A/P:
# Sepsis POA due to R foot cellulitis from Diabetic foot ulcer
Podiatry consulted, s/p soft incisional debridement of all necrotic tissue of the right foot ulceration.
MRI ruled out osteomyelitis.
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
wound culture with E coli, Klebsiella, Staph species
Can discharge with Cefdinir with Doxycycline for 10 days
No ambulatory dysfunction
# MARTINEZ, prerenal vs septic ATN, improved
SCr 1.7 on admission, SCr at 1.4 today
outpt BMP monitoring
# Mild hyponatremia, resolved
# DM
ISS
cont Jardiance, glipizide
A1c 8.5%
DM educator consulted
# HTN
# HLD
cont home meds
although hold ARB until further directed by PCP outpt
Full code
Heparin for DVT ppx
Anticipated Discharge: Today
Subjective/Interval History
-
Date of Service: January 12, 2024
Objective Data
-
Labs:
Laboratory Results
01/12/24
07:33
WBC 7.3
Hgb 11.7 L
Hct 36.3 L
Plt Count 155
Sodium 138
Potassium 4.2
Chloride 110 H
Carbon Dioxide 22
BUN 30 H
Creatinine 1.4 H
Glucose 93
Calcium 8.9
Vital Signs:
Vital Signs
Temp Pulse Resp BP Pulse Ox
37.2 C 72 16 145/76 97
01/12/24 08:39 01/12/24 08:39 01/12/24 08:39 01/12/24 08:39 01/12/24 08:39
I&O
01/11/24 01/12/24 01/13/24
06:59 06:59 06:59
Intake Total 3200 / 3200 720 / 720
Output Total 850 / 850
Balance 2350 / 2350 720 / 720
Review of Systems
-
All other systems: Reviewed and negative
Data Reviewed
-
Labs: Labs Reviewed by me
--- NOTE | 2024-01-12 14:01 | CM ---
Patient seen at bedside. Patient for discharge today. IMM completed and signed form placed on chart. Patient to drive self home, no needs identified at this time. CM will continue to follow for discharge planning needs.
Plan; home with no needs
[2024-01-12 14:18] VITALS: BP 165/74
--- NOTE | 2024-01-12 14:43 | W.DCSUMMARY ---
Discharge Summary
Discharge Data
Date of Admission: 01/09/24
Date of Discharge: 01/12/24
-
Pending Results: No
Hospital Course
Principal Diagnosis:
Sepsis due to Right foot cellulitis from Diabetic foot ulcer
Improved acute kidney injury (MARTINEZ)
Chronic Diagnoses:�
[id number] diabetes
Hypertension
Hyperlipidemia
Consultations:�
Podiatry
Procedures:�
Soft incisional debridement of all necrotic tissue of the right foot ulceration by mail order biller.
Clinical course:�
This is a 73 year old man presented with diabetic foot ulcer and cellulitis.
Problem 1:
Sepsis due to Right foot cellulitis from Diabetic foot ulcer.
He underwent incisional debridement of necrotic tissue of the right foot ulceration by mail order biller.
His MRI ruled out osteomyelitis.
His wound culture grew E coli, Klebsiella, and Staph species.
He received Unasyn and vancomycin while in the hospital, and was discharged with Cefdinir with Doxycycline for another 10 days.
He can follow-up with wound care and his mail order biller outpatient following discharge.
Problem 2:
Improved acute kidney injury.
His serum creatinine was at 1.7 on admission, which improved to 1.4 on the day of discharge.
He can follow-up with BMP outpatient with result to his PCP.
As for the rest of his medical problems, they were stable during his hospital stay.
Discharge Plan
-
Patient Disposition: Home (Routine Discharge)
Discharge Diagnosis/Procedures: diabetic foot ulcer and cellulitis, status post soft incisional debridement of all necrotic tissue of the right foot ulceration.
Condition: Fair
Diet: Low Fat, Low Cholesterol and Diabetic, Carb Controlled
Activity: As tolerated
Blood Work: bmp in 1 week with pcp
Referrals:
podiatry, provider [Other] - in less than 1 week (f/u this week)
Oneal Briggs PA-C [Family Provider] - in less than 1 week
Additional Discharge Medication Instructions: take Cefdinir with Doxycycline for 10 days.
Avoid dairy product and the sun while on doxycycline.
Hold losartan and metformin due to elevated creatinine level (kidney dysfunction)
Prescriptions:
New
cefdinir 300 mg capsule
300 mg PO Q12H 10 Days Qty: 20 0RF
doxycycline hyclate 100 mg capsule
100 mg PO BID 10 Days Qty: 20 0RF
Continued
clopidogrel 75 MG tablet
75 mg PO DAILY Qty: 30 3RF
nitroglycerin 0.4 MG tablet, sublingual
0.4 mg sublingual [id number] PRN (Reason: chest pain) Qty: 25 3RF
aspirin 81 MG tablet,chewable
81 mg PO DAILY 0RF
glipizide 5 MG tablet
5 mg PO BID@0800,1700 30 Days Qty: 60 0RF
therapeutic multivitamin Tablet
1 tab PO DAILY
sildenafil 100 mg Tablet
100 mg PO DAILY PRN (Reason: ED)
prednisolone acetate 1 % drops,suspension
1 drp RIGHT EYE DAILY
Jardiance 10 mg tablet
10 mg PO DAILY
atorvastatin 40 MG tablet
40 mg PO QPM
clotrimazole [Antifungal (clotrimazole)] 1 APPLIC cream
1 applic topical DAILYPRN PRN (Reason: both feet)
prednisolone acetate 1 % Drops,Suspension
1 drp LEFT EYE BID
Held
metformin 1,000 MG tablet
1,000 mg PO BID@0800,1700
Hold Instructions: Resume on 01/20/24. until your kidney function returns to normal
losartan 25 MG tablet
25 mg PO DAILY
Hold Instructions: Resume on 01/20/24. until further directed by your PCP
Discharge Orders:
Discharge Patient (As Directed); Ordered 01/12/24
Ordered By: Paula Castorena
Discharge Date and Time
Print Language: CHINESE
--- NOTE | 2024-01-12 15:02 | WOUNDNOTE ---
JOSEPHINE RN note: Patient admitted with Cellulitis of R foot, diabetic ulcer on 01/09/24
See H&P for complete history.
PMH:NIDDM, CAD,FL, callus R plantar foot.
Wound Location and type/assessment: Patient admitted with: Callus to R plantar foot. Dr. Duncan saw patient for ulcer to R foot and cellulitis few days ago. MRI negative for osteomyelitis. Nurse Asia asked me to see patient before discharge,
he wants to drive himself home. 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 Patient able to ambulate on own. Confirmed he follows with Dr. Gambino Neurodiagnostic Tech and will make an apt with her as soon as
he gets home.
Plan: Applied alginate and silicone foam. Patient states he has alginate and dry dressings at home and will follow up with Neurodiagnostic Tech. Patient said he will ask Dr. Gambino if needs to follow up at wound care center also.
Confirmed orders with Dr. Castorena. Updated care plan, nurse and discharge instructions.
== END 2024-01-12 15:01 | disposition home or self-care (01) | DRG 854 ==
LOC: 4 WEST ACU 17:42
PROVIDERS: Internal Medicine; Nurse Practitioner; ADMITTING PHYSICIAN Internal Medicine; ATTENDING PHYSICIAN Internal Medicine; EMERGENCY PHYSICIAN Emergency Medicine; FAMILY PHYSICIAN Physician Assistant Medical; OTHER PHYSICIAN Podiatrist
PROC: 0JBQ0ZZ Excision of Right Foot Subcutaneous Tissue and Fascia, Open Approach (ICD-10-PCS; 2024-01-10)
DX: A41.51 Sepsis due to Escherichia coli [E. coli] (principal); E87.1 Hypo-osmolality and hyponatremia; L97.419 Non-pressure chronic ulcer of right heel and midfoot with unspecified severity; L03.115 Cellulitis of right lower limb; N17.9 Acute kidney failure, unspecified; E11.621 Type 2 diabetes mellitus with foot ulcer; E11.40 Type 2 diabetes mellitus with diabetic neuropathy, unspecified; E11.622 Type 2 diabetes mellitus with other skin ulcer; E78.00 Pure hypercholesterolemia, unspecified; E86.1 Hypovolemia; I10 Essential (primary) hypertension; I25.10 Atherosclerotic heart disease of native coronary artery without angina pectoris; Z91.041 Radiographic dye allergy status; Z91.040 Latex allergy status; Z88.8 Allergy status to other drugs, medicaments and biological substances; Z91.048 Other nonmedicinal substance allergy status; Z79.82 Long term (current) use of aspirin; Z79.84 Long term (current) use of oral hypoglycemic drugs; Z79.02 Long term (current) use of antithrombotics/antiplatelets; Z86.73 Personal history of transient ischemic attack (TIA), and cerebral infarction without residual deficits
CPT/HCPCS: 73630; 73720; 80048; 80053; 80202; 82962; 83036; 83605; 85025; 85027; 87040; 87070; 87077; 87147; 87186; 87205; 93971; 96365; 99285; A9575

== ENCOUNTER → 2024-01-18 13:00 | Outpatient (REF) | payer MEDICARE, OTHER, SELFPAY ==
[2024-01-18 14:56] LABS: Blood Urea Nitrogen 39 mg/dl (9-20); Calcium 9.7 mg/dl (8.4-10.2); Carbon Dioxide 21 mmol/L (22-30); Chloride 101 mmol/L (98-107); Glucose 338 mg/dl (70-99); Potassium 5.1 mmol/L (3.5-5.1); Sodium 137 mmol/L (135-145); eGFR 37.25
== END ==
LOC: REG 13:00
PROVIDERS: ATTENDING PHYSICIAN Internal Medicine; FAMILY PHYSICIAN Physician Assistant Medical
DX: S37.009A Unspecified injury of unspecified kidney, initial encounter (principal)
CPT/HCPCS: 36415; 80048

== ENCOUNTER → 2024-01-28 09:13 | Outpatient (REF) | payer MEDICARE, OTHER, SELFPAY ==
[2024-01-28 09:54] LABS: % Basophils 0.7 % (0-2); % Eosinophils 1.5 % (0-6); % Immature Granulocytes 0.5 % (0-0.5); % Lymphocytes 10.7 % (20.5-51.1); % Monocytes 7.1 % (1.7-9.3); % Neutrophils 79.5 % (42.2-75.2); Absolute Basophils 0.1 10^3/uL (0-0.2); Absolute Eosinophils 0.2 10^3/uL (0-0.7); Absolute Immature Granulocytes 0.1 10^3/uL (0-0.05); Absolute Lymphocytes 1.2 10^3/uL (1.2-3.4); Absolute Monocytes 0.8 10^3/uL (0.1-0.6); Absolute Neutrophils 8.6 10^3/uL (1.4-6.5); Hematocrit 40.8 % (39.0-52.0); Hemoglobin 12.8 g/dL (13.0-18.0); Mean Corp Hgb Conc. 31.4 g/dL (33.0-37.0); Mean Corpuscular Hgb 28.1 pg (27.0-31.0); Mean Corpuscular Volume 89.5 fL (80.0-94.0); Mean Platelet Volume 11.1 fL (7.4-10.4); Nucleated Red Blood Cells % 0 % (-); Platelet Count 246 10^3/uL (130-400); Red Blood Cell Count 4.56 10^6/uL (4.70-6.10); Red Cell Dist. Width 12.5 % (11.5-14.5); White Blood Cell Count 10.8 10^3/uL (4.8-10.8)
[2024-01-28 12:09] LABS: ALT (SGPT) 17 U/L (0-50); AST (SGOT) 17 U/L (17-59); Alkaline Phosphatase 93 U/L (38-126); Blood Urea Nitrogen 41 mg/dl (9-20); Calcium 9.8 mg/dl (8.4-10.2); Carbon Dioxide 20 mmol/L (22-30); Chloride 102 mmol/L (98-107); Glucose 143 mg/dl (70-99); HDL Cholesterol 37 mg/dl; LDL Cholesterol, Calculated 44 mg/dl; Potassium 4.8 mmol/L (3.5-5.1); Sodium 137 mmol/L (135-145); Total Bilirubin 0.5 mg/dl (0.2-1.3); Total Cholesterol 119 mg/dl (50-199); Total Protein 6.5 g/dl (6.3-8.2); Triglyceride 193 mg/dl (10-149); Very Low Density Lipoprotein 38 mg/dl (0-30); eGFR 39.75
[2024-01-28 12:20] LABS: Glycohemoglobin (HgbA1c) 8.3 % (4.0-5.6)
[2024-01-28 12:35] LABS: PSA, Total - Diagnostic 2.45 ng/ml (0.0-4.0); TSH Reflex To Free T4 2.94 uIU/ml (0.47-4.68)
== END ==
LOC: REG 09:13
PROVIDERS: ATTENDING PHYSICIAN Physician Assistant Medical
DX: E11.65 Type 2 diabetes mellitus with hyperglycemia (principal); E78.2 Mixed hyperlipidemia; R53.82 Chronic fatigue, unspecified; N40.0 Benign prostatic hyperplasia without lower urinary tract symptoms
CPT/HCPCS: 36415; 80053; 80061; 83036; 84153; 84443; 85025

== ENCOUNTER 2024-02-10 17:06 | Inpatient (IN) | payer MEDICARE, OTHER, SELFPAY ==
[2024-02-10 13:02] VITALS: BP 139/61
--- NOTE | 2024-02-10 14:09 | ED.GENMED ---
History of Present Illness
<Sophy Calixto PA-C - Last Filed: 02/10/24 22:02>
General
Chief Complaint: Skin Problem
Source: patient
Exam Limitations: none
Time Seen by Provider: 02/10/24 13:26
Nursing documentation reviewed up to this point in time: agreed with
Travel History
Have you had any contact with someone who has COVID-19?: No
Do you have any symptoms of coronavirus? Fever > 100 degrees, chills, cough, shortness of breath, sore throat, loss of taste or smell, muscle aches, or headache?: No
History of Present Illness
History of Present Illness:
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 Patient recently admitted at [facility] from 01/08-01/11
for diabetic right foot infection, was treated with IV antibiotics and discharged on doxycycline and cefdinir which he took for 20 days following discharge from hospital, finishing course about 5 days ago. He has been following with car wash manager
weekly. He reports initial gradual improvement following discharge with an acute worsening starting about 2 days ago. He states wound on sole of right foot seems unchanged but noticed worsening redness and swelling surrounding wound on the medial
aspect of his right great toe. He reports significant pain in his right foot which was most severe last night. He scheduled appt with car wash manager for follow-up this morning and was sent to the emergency department for admission due to concern of
deeper foot infection and involvement of bone.
Patient denies any fever, chills, nausea, vomiting, chest pain, shortness of breath.
Past History
<Sophy Calixto PA-C - Last Filed: 02/10/24 22:02>
Past History
ED Past Medical History: CAD, Hypercholesterolemia and NIDDM
ED Past Surgical History: Cardiac
Social History
Tobacco: Non-smoker
Personal:
Living: with family
Family History
Family History: Other (Noncontributory)
Phy Exam
<Sophy Calixto PA-C - Last Filed: 02/10/24 22:02>
Physical Exam
Physical Exam:
General: In no apparent distress, nontoxic appearing
Vitals: Vital signs stable, afebrile
HEENT: Atraumatic, normocephalic; pupils equal round reactive light bilaterally protecting airway
Neck: appears supple, trachea midline
CV: Regular rate and rhythm, heart sounds normal, no evidence of cyanosis
Resp: No evidence of respiratory distress, lungs clear bilaterally
Abd: Soft, nontender, non-distended
Extremities: Open ulcer at medial aspect of first metatarsal draining purulent discharge with surrounding erythema, edema; stable ulcer on sole of right foot at base of first metatarsal; 1+ pitting edema of right foot and ankle; DP and PT pulses
palpable and equal bilaterally; right lower extremity neurovascularly intact
Neuro: alert and oriented; grossly intact
Psych: Normal affect
Skin: Open wounds of right foot at medial aspect of first metatarsal and sole of right foot at base of first metatarsal
Course
<Sophy Calixto PA-C - Last Filed: 02/10/24 22:02>
Orders/Labs/Results
Orders:
Orders
02/10/24 14:15
Morphine Sulfate 2 mg IV NOW STA
Foot, Right 3 View [CR Foot - Right Min 3 Views] Urgent
Comment:
Reason For Exam: diabetic foot infection
02/10/24 14:20
Piperacillin/Tazo 3.375 Gram [Zosyn] 3.375 gram in 50 ml IV NOW
02/10/24 14:31
CRP [C-Reactive Protein] Urgent
Complete Blood Count/With Diff Urgent
Comprehensive Metabolic Panel Urgent
ESR [Erythrocyte Sed Rate] Urgent
Lactic Acid Q4H
Comment: CANCEL 2nd LACTIC ACID IF 1st LACTIC ACID IS LESS THAN 2
Blood Culture Q30M
ASHLYN Source: Blood/Venous
Specimen Description:
Blood Culture Q30M
ASHLYN Source: Blood/Venous
Specimen Description:
02/10/24 14:43
Vancomycin [Vancocin] 2,000 mg 0.9% Sodium Chloride 500 ml [Nss] 500 ml IV NOW
02/10/24 Dinner
2000 calorie (17 carb) Diabetic
At Your Request: Full Participation
02/10/24 16:01
Wound Culture [Wound/Abscess/Other Culture] Urgent
ASHLYN Source: Foot
Specimen Description: Right
Date Specimen was Collected: 02/10/24
Time Specimen was Collected: 15:57
02/10/24 16:38
Admit/Transfer Patient As Directed
Co-Sign Provider:
Level of Care: Inpatient admission
Assign to:: Medical/Surgical
Physician / Group: dheeraj
Diagnosis: diabetic foot infection
Reason for Hospitalization: diabetic foot infection
Expected length of stay greater than two midnights?: Yes
ELOS- Estimated Length of Stay in days: 2
I certify the patient meets the requirements for IP care: Yes
Code Status As Directed
Resuscitation Status: Full Code
02/10/24 17:33
0.9% Sodium Chloride 1000 ml [Nss] 1,000 ml IV 80 mls/hr
Clotrimazole [Lotrimin 1% Cream] 1 applic TOPICAL DAILYPRN PRN
Dextrose 50%-Water [Dextrose 50% Syringe] 12.5 grams IV [id number] PRN
Glucagon [GlucaGen] 1 mg IM PRN PRN
HYDROmorphone [Dilaudid] 0.5 mg IV Q4HPRN PRN
Nitroglycerin Sublingual [Nitrostat (Sublingual)] 0.4 mg SL [id number] PRN
02/10/24 17:33
MR Right Le No Joint With Routine
Comment:
Reason For Exam: right medial infection, plantar ulcer osteo
Recent pill cam endoscopy?: No
Activity As Directed
Activity Level: As Tolerated
Bedside Glucose Monitoring As Directed
Frequency: AC&HS
Additional Instructions:: Change to q6h if pt on TPN, tube feeding or not eating
Pneumatic Compression Sleeves As Directed
Type: Knee high
Vital Signs As Directed
Frequency: Per unit guidelines
DX Deep Vein Thrombosis Video Routine
02/10/24 18:00
Atorvastatin [Lipitor] 40 mg PO QPM
VANCOMYCIN Pharmacy to Dose [VANCOCIN Pharmacy to Dose] 1 each Pharmacy To Prepare [Call Pharmacy To Prepare] 0 ml IV PER PROTOCOL
02/10/24 19:00
Insulin Aspart Corrective Low [Novolog Flexpen-Low Resistance] See Protocol SC AC
02/10/24 20:00
Metoprolol [Lopressor] 25 mg PO BID
Piperacillin/Tazo 3.375 Gram [Zosyn] 3.375 gram in 50 ml IV Q6H
Prednisolone Acetate [Pred Forte 1% Eye Drops] See Dose Instructions LEFT EYE BID
02/11/24 06:00
Complete Blood Count/With Diff IN AM
Comprehensive Metabolic Panel IN AM
Glycohemoglobin (HgbA1c) IN AM
02/11/24 08:00
Aspirin Chewable [Low Strength Aspirin] 81 mg PO DAILY
Empagliflozin [Jardiance] 10 mg PO DAILY
Multivitamin [Theragran] 1 tablet PO DAILY
Prednisolone Acetate [Pred Forte 1% Eye Drops] See Dose Instructions RIGHT EYE DAILY
Abnormal Lab Results
02/10/24
14:31
WBC 13.6 H 10^3/uL
(4.8-10.8)
RBC 3.93 L 10^6/uL
(4.70-6.10)
Hgb 10.9 L g/dL
(13.0-18.0)
Hct 34.3 L %
(39.0-52.0)
MCHC 31.8 L g/dL
(33.0-37.0)
MPV 10.7 H fL
(7.4-10.4)
Abs Immat Gran (auto) 0.1 H 10^3/uL
(0-0.05)
Absolute Neuts (auto) 11.5 H 10^3/uL
(1.4-6.5)
Absolute Lymphs (auto) 1.0 L 10^3/uL
(1.2-3.4)
Absolute Monos (auto) 0.8 H 10^3/uL
(0.1-0.6)
Immature Gran % 0.7 H %
(0-0.5)
Neutrophils % 84.0 H %
(42.2-75.2)
Lymphocytes % 7.6 L %
(20.5-51.1)
ESR 64 H mm/hour
(0-20)
Chloride 111 H mmol/L
(98-107)
Carbon Dioxide 17 L mmol/L
(22-30)
BUN 31 H mg/dl
(9-20)
Creatinine 1.6 H mg/dL
(0.7-1.3)
Glucose 107 H mg/dl
(70-99)
C-Reactive Protein 73.40 H mg/L
(0.0-10.00)
Total Protein 5.7 L g/dl
(6.3-8.2)
Albumin 3.2 L g/dl
(3.5-5.0)
02/10/24 14:31
02/10/24 14:31
Vital Signs
Initial and Last Documented VS:
Initial Vital Signs
Temp Pulse Resp BP Pulse Ox
99.0 F 82 16 139/61 96
02/10/24 13:02 02/10/24 13:02 02/10/24 13:02 02/10/24 13:02 02/10/24 13:02
Last Documented Vital Signs
Temp Pulse Resp BP Pulse Ox
99.5 F 77 18 126/63 96
02/10/24 23:00 02/10/24 23:00 02/10/24 23:00 02/10/24 23:00 02/10/24 23:00
<Disha Guthrie DO - Last Filed: 02/10/24 23:36>
Orders/Labs/Results
Orders:
Orders
02/10/24 14:15
Morphine Sulfate 2 mg IV NOW STA
Foot, Right 3 View [CR Foot - Right Min 3 Views] Urgent
Comment:
Reason For Exam: diabetic foot infection
02/10/24 14:20
Piperacillin/Tazo 3.375 Gram [Zosyn] 3.375 gram in 50 ml IV NOW
02/10/24 14:31
CRP [C-Reactive Protein] Urgent
Complete Blood Count/With Diff Urgent
Comprehensive Metabolic Panel Urgent
ESR [Erythrocyte Sed Rate] Urgent
Lactic Acid Q4H
Comment: CANCEL 2nd LACTIC ACID IF 1st LACTIC ACID IS LESS THAN 2
Blood Culture Q30M
ASHLYN Source: Blood/Venous
Specimen Description:
Blood Culture Q30M
ASHLYN Source: Blood/Venous
Specimen Description:
02/10/24 14:43
Vancomycin [Vancocin] 2,000 mg 0.9% Sodium Chloride 500 ml [Nss] 500 ml IV NOW
02/10/24 Dinner
2000 calorie (17 carb) Diabetic
At Your Request: Full Participation
02/10/24 16:01
Wound Culture [Wound/Abscess/Other Culture] Urgent
ASHLYN Source: Foot
Specimen Description: Right
Date Specimen was Collected: 02/10/24
Time Specimen was Collected: 15:57
02/10/24 16:38
Admit/Transfer Patient As Directed
Co-Sign Provider:
Level of Care: Inpatient admission
Assign to:: Medical/Surgical
Physician / Group: dheeraj
Diagnosis: diabetic foot infection
Reason for Hospitalization: diabetic foot infection
Expected length of stay greater than two midnights?: Yes
ELOS- Estimated Length of Stay in days: 2
I certify the patient meets the requirements for IP care: Yes
Code Status As Directed
Resuscitation Status: Full Code
02/10/24 17:33
0.9% Sodium Chloride 1000 ml [Nss] 1,000 ml IV 80 mls/hr
Clotrimazole [Lotrimin 1% Cream] 1 applic TOPICAL DAILYPRN PRN
Dextrose 50%-Water [Dextrose 50% Syringe] 12.5 grams IV [id number] PRN
Glucagon [GlucaGen] 1 mg IM PRN PRN
HYDROmorphone [Dilaudid] 0.5 mg IV Q4HPRN PRN
Nitroglycerin Sublingual [Nitrostat (Sublingual)] 0.4 mg SL [id number] PRN
02/10/24 17:33
MR Right Le No Joint With Routine
Comment:
Reason For Exam: right medial infection, plantar ulcer osteo
Recent pill cam endoscopy?: No
Activity As Directed
Activity Level: As Tolerated
Bedside Glucose Monitoring As Directed
Frequency: AC&HS
Additional Instructions:: Change to q6h if pt on TPN, tube feeding or not eating
Pneumatic Compression Sleeves As Directed
Type: Knee high
Vital Signs As Directed
Frequency: Per unit guidelines
DX Deep Vein Thrombosis Video Routine
02/10/24 18:00
Atorvastatin [Lipitor] 40 mg PO QPM
VANCOMYCIN Pharmacy to Dose [VANCOCIN Pharmacy to Dose] 1 each Pharmacy To Prepare [Call Pharmacy To Prepare] 0 ml IV PER PROTOCOL
02/10/24 19:00
Insulin Aspart Corrective Low [Novolog Flexpen-Low Resistance] See Protocol SC AC
02/10/24 20:00
Metoprolol [Lopressor] 25 mg PO BID
Piperacillin/Tazo 3.375 Gram [Zosyn] 3.375 gram in 50 ml IV Q6H
Prednisolone Acetate [Pred Forte 1% Eye Drops] See Dose Instructions LEFT EYE BID
02/11/24 06:00
Complete Blood Count/With Diff IN AM
Comprehensive Metabolic Panel IN AM
Glycohemoglobin (HgbA1c) IN AM
02/11/24 08:00
Aspirin Chewable [Low Strength Aspirin] 81 mg PO DAILY
Empagliflozin [Jardiance] 10 mg PO DAILY
Multivitamin [Theragran] 1 tablet PO DAILY
Prednisolone Acetate [Pred Forte 1% Eye Drops] See Dose Instructions RIGHT EYE DAILY
Abnormal Lab Results
02/10/24
14:31
WBC 13.6 H 10^3/uL
(4.8-10.8)
RBC 3.93 L 10^6/uL
(4.70-6.10)
Hgb 10.9 L g/dL
(13.0-18.0)
Hct 34.3 L %
(39.0-52.0)
MCHC 31.8 L g/dL
(33.0-37.0)
MPV 10.7 H fL
(7.4-10.4)
Abs Immat Gran (auto) 0.1 H 10^3/uL
(0-0.05)
Absolute Neuts (auto) 11.5 H 10^3/uL
(1.4-6.5)
Absolute Lymphs (auto) 1.0 L 10^3/uL
(1.2-3.4)
Absolute Monos (auto) 0.8 H 10^3/uL
(0.1-0.6)
Immature Gran % 0.7 H %
(0-0.5)
Neutrophils % 84.0 H %
(42.2-75.2)
Lymphocytes % 7.6 L %
(20.5-51.1)
ESR 64 H mm/hour
(0-20)
Chloride 111 H mmol/L
(98-107)
Carbon Dioxide 17 L mmol/L
(22-30)
BUN 31 H mg/dl
(9-20)
Creatinine 1.6 H mg/dL
(0.7-1.3)
Glucose 107 H mg/dl
(70-99)
C-Reactive Protein 73.40 H mg/L
(0.0-10.00)
Total Protein 5.7 L g/dl
(6.3-8.2)
Albumin 3.2 L g/dl
(3.5-5.0)
02/10/24 14:31
02/10/24 14:31
Vital Signs
Initial and Last Documented VS:
Initial Vital Signs
Temp Pulse Resp BP Pulse Ox
99.0 F 82 16 139/61 96
02/10/24 13:02 02/10/24 13:02 02/10/24 13:02 02/10/24 13:02 02/10/24 13:02
Last Documented Vital Signs
Temp Pulse Resp BP Pulse Ox
99.5 F 77 18 126/63 96
02/10/24 23:00 02/10/24 23:00 02/10/24 23:00 02/10/24 23:00 02/10/24 23:00
<Sophy Calixto PA-C - Last Filed: 02/10/24 22:02>
MDM/Problems Addressed
Differential Diagnosis Includes:
Not limited to: Worsening diabetic foot infection, cellulitis, osteomyelitis
MDM/Problems Addressed:
Patient is a 73-year-old male presenting from podiatry office with open ulcers on right foot with worsening surrounding redness, swelling, pain over the past 2 days. Recently admitted for IV antibiotics at [facility] and discharged with oral Doxy
plus cefdinir. Seen by podiatry today and referred to emergency due to concern for persistent diabetic right foot infection and concern for progression to osteomyelitis. No fever, chills, systemic signs of infection. Vitals stable. Patient is
afebrile. Exam as above. Ulcer on medial aspect of right first metatarsal draining purulent discharge with surrounding redness, swelling. Ulcer on sole of right foot at base of first metatarsal appears stable. Labs show leukocytosis of 13.6 with
left shift. Renal insufficiency noted on labs appears chronic. Lactic acid is normal. Both CRP and ESR are elevated. There is some concern for osteomyelitis although x-ray shows no evidence of bony involvement. Wound culture and blood cultures
pending. Will admit to hospitalist for MRI, podiatry consult, IV antibiotics. Vancomycin and Zosyn started.
Chronic conditions affecting care:
Type 2 diabetes
Acute Exacerbation and/or Progression of Chronic Illness:
Worsening diabetic foot infection
<Sophy Calixto PA-C - Last Filed: 02/10/24 22:02>
*Radiology
Radiology exam reviewed: preliminary read by ED provider and radiology read reviewed
*Pulse Oximetry
Patient hypoxic: no
*EKG
Interpreted by ED Provider?: NA
*Field Services Analyst Interpretation
Rate: Field Services Analyst- N/A
*Critical Care Note
Total Time (30-74mins, 75-104mins- exclusive of procedures): Not Applicable
Data Reviewed
Review of Other/Old Records Reveals: Labs, Records, Radiology Studies, Progress Notes and Discharge Summary
Source: previous hospital records
<Sophy Calixto PA-C - Last Filed: 02/10/24 22:02>
Patient Management
Discussion with other providers: Hospitalist
ED Attending Note
<Sophy Calixto PA-C - Last Filed: 02/10/24 22:02>
-
Portions of this chart may have been created with voice recognition software.� Occasional wrong word or��sound alike� substitutions may have occurred due to the inherent limitations of voice recognition software.
<Disha Guthrie DO - Last Filed: 02/10/24 23:36>
ED Attending Note
Patient seen and examined by attending physician: Yes
I performed a history and physical exam of patient and discussed management with resident, I reviewed resident's note and agree with documented findings and plan of care.: Yes
ED Attending Note:
73-year-old male history of diabetes, CAD, hyperlipidemia presenting with right foot infection. Patient states that he was seen here approximately 1 month ago for infection of right foot. Patient was seen by podiatry and transition to oral
doxycycline and cefdinir which he completed last week. Patient states that over the weekend he had a callus on the medial aspect of his right base of the big toe that opened and then worsened to communicate with ulcer at the base of the right first
toe. Patient reports increased smell and discharge from wounds. Patient states he was seen by his car wash manager who recommended to come to the ER for admission and IV antibiotics. Patient denies fever or chills. Heart regular rate rhythm, lungs
clear. Ulcer to the lateral aspect and base of the right first toe sole of foot towards distal first metatarsal draining purulent discharge, surrounding erythema. WBC, ESR and CRP elevated. Concern for diabetic foot wound. Gave vancomycin and
Zosyn, will admit for podiatry consultation.
Discharge Plan
Departure
Patient Disposition: Admit
Date of Disposition: 02/10/24
Time of Disposition: 16:07
Presentation/result/management discussed w/ accepting MD/DO: Hospitalist
Discharge Problem:
Diabetic infection of right foot
Interventions
Interventions:
*Risk Screen - Suicide Last Done: 02/10/24 13:02
*General Assessment Last Done: 02/10/24 14:02
*Neglect/Abuse Screening Last Done: 02/10/24 13:02
ED- Fall Risk Assessment Last Done: 02/10/24 16:30
*ED COVID-19 Vaccine History Last Done: 02/10/24 13:02
*Nursing Disposition Last Done: 02/10/24 17:30
ED-Skin Assessment Last Done: 02/10/24 16:29
Discharge Date and Time
Discharge Date/Time: 02/10/24 17:31
[2024-02-10] MEDS: MORPHINE SULFATE 2 MG IV (14:38)
[2024-02-10] MEDS: ZOSYN 50 IV ×2 (14:39→20:44)
[2024-02-10 14:40] VITALS: BMI 26.8
[2024-02-10 14:55] LABS: % Basophils 0.3 % (0-2); % Eosinophils 1.4 % (0-6); % Immature Granulocytes 0.7 % (0-0.5); % Lymphocytes 7.6 % (20.5-51.1); Absolute Eosinophils 0.2 10^3/uL (0-0.7); Absolute Immature Granulocytes 0.1 10^3/uL (0-0.05); Absolute Monocytes 0.8 10^3/uL (0.1-0.6); Absolute Neutrophils 11.5 10^3/uL (1.4-6.5); Hematocrit 34.3 % (39.0-52.0); Hemoglobin 10.9 g/dL (13.0-18.0); Mean Corp Hgb Conc. 31.8 g/dL (33.0-37.0); Mean Corpuscular Hgb 27.7 pg (27.0-31.0); Mean Corpuscular Volume 87.3 fL (80.0-94.0); Mean Platelet Volume 10.7 fL (7.4-10.4); Nucleated Red Blood Cells % 0 % (-); Platelet Count 210 10^3/uL (130-400); Red Blood Cell Count 3.93 10^6/uL (4.70-6.10); Red Cell Dist. Width 12.5 % (11.5-14.5); White Blood Cell Count 13.6 10^3/uL (4.8-10.8)
[2024-02-10 15:05] LABS: ALT (SGPT) 29 U/L (0-50); AST (SGOT) 22 U/L (17-59); Albumin 3.2 g/dl (3.5-5.0); Alkaline Phosphatase 104 U/L (38-126); Blood Urea Nitrogen 31 mg/dl (9-20); Calcium 8.8 mg/dl (8.4-10.2); Carbon Dioxide 17 mmol/L (22-30); Chloride 111 mmol/L (98-107); Estimated Creatinine Clearance 41 ml/min; Glucose 107 mg/dl (70-99); Potassium 4.1 mmol/L (3.5-5.1); Sodium 137 mmol/L (135-145); Total Bilirubin 0.4 mg/dl (0.2-1.3); Total Protein 5.7 g/dl (6.3-8.2); eGFR 45.78
[2024-02-10 15:11] LABS: Lactic Acid 0.8 mmol/L (0.7-2.0)
[2024-02-10 15:22] LABS: Erythrocyte Sed Rate 64 mm/hour (0-20)
[2024-02-10] MEDS: VANCOCIN 540 MG IV (15:58)
[2024-02-10 16:04] VITALS: BP 162/67
--- NOTE | 2024-02-10 16:18 | WOUNDNOTE ---
right medial foot, multiple attempts to get clearer picture, unable with ED camera.
--- NOTE | 2024-02-10 16:43 | HPS.HSE ---
Addendum entered and electronically signed by Clyde Post MD 02/10/24 16:45:
Held Plavix for potential debridement.
Original Note:
Family Physician
-
Family Physician: Oneal Briggs
Chief Complaint
-
foot infection
History of Present Illness
73-year-old male past medical history of diabetes, CAD with stents, prior CABG, hypertension, hyperlipidemia, presenting to the ER from manager commission office due to persistent diabetic right foot infection. Patient was recently admitted to [place] from
01/08 to 01/11 for diabetic right foot infection and was treated with IV antibiotics and discharged on doxycycline and cefdinir which she took for 20 days following discharge from the hospital which she finished 5 days ago. He had gradual improvement
following discharge but then had acute worsening 2 days ago. He states that the wound on the sole of the right foot seems unchanged but noticed that there was worsening redness and swelling surrounding the wound on the medial aspect of the right
great toe where he previously had a callus. He has significant pain of his right foot. He saw manager commission today who sent him to the emergency room. He denies any fevers or chills, nausea or vomiting or chest pain or shortness of breath.
He does consume 1 drink of alcohol every few days. He denies smoking.
Medical History
Past Medical History
Past Medical History: Reports Other (diabetes, CAD with stents, prior CABG, hypertension, hyperlipidemia)
Past Surgical History: Reports None
Social History
Tobacco: Non-smoker
Alcohol: Occasional
Drug: None
Family History
Family History: Not pertinent
Allergies / Home Medications
Allergies reflects when Allergies were last updated in [employer].
Home Medications with original date entered in [employer]
Allergy/Medication List:
Allergies
Allergy/AdvReac Type Severity Reaction Status Date / Time
Iodinated Contrast Media Allergy Rash Verified 01/09/24 12:57
latex Allergy Rash Verified 01/09/24 12:57
silk Allergy Rash Verified 01/09/24 12:57
propoxyphene napsylate AdvReac other Verified 01/09/24 12:57
[From Jennifer]
Home Medications
nitroglycerin 0.4 mg sublingual tablet 0.4 mg sublingual [id number] PRN chest pain ##25 12/30/16
atorvastatin 40 mg tablet 40 mg PO QPM High cholesterol 09/05/22
clotrimazole 1 % topical cream (Antifungal (clotrimazole)) 1 applic topical DAILYPRN PRN both feet RASH 09/05/22
empagliflozin 10 mg tablet (Jardiance) 10 mg PO DAILY Diabetes 09/05/22
prednisolone acetate 1 % eye drops,suspension 1 drp RIGHT EYE DAILY Eye condition 09/05/22
sildenafil 100 mg tablet 100 mg PO DAILY PRN ED 09/05/22
therapeutic multivitamin 1 tab PO DAILY Supplement 09/05/22
prednisolone acetate 1 % eye drops,suspension 1 drp LEFT EYE BID Eye Condition 01/09/24
aspirin 81 mg chewable tablet 81 mg PO DAILY Blood Clot Prevention/Tx 02/10/24
clopidogrel 75 mg tablet 75 mg PO DAILY Blood Clot Prevention/Tx 02/10/24
glipizide 5 mg tablet 5 mg PO BID@0800,1700 Diabetes 02/10/24
losartan 25 mg tablet 25 mg PO DAILY Blood Pressure 02/10/24
metoprolol tartrate 25 mg tablet 25 mg PO BID Blood Pressure 02/10/24
Review of Systems
-
History Source: Patient
A 12 point ROS was completed and negative except as noted: Yes
Constitutional: Reports No Symptoms
EENT: Reports No Symptoms
Respiratory: Reports No Symptoms
Cardiac: Reports No Symptoms
Abdomen/GI: Reports No Symptoms
: Reports No Symptoms
Musculoskeletal: Reports See HPI
Skin: Reports No Symptoms
Neurological: Reports No Symptoms
Endocrine: Reports No Symptoms
Hematologic/Lymphatic: Reports No Symptoms
Psych: Reports No Symptoms
Physical Exam
Vital Signs
Vital Signs
Temp Pulse Resp BP Pulse Ox
99.0 F 86 18 162/67 98
02/10/24 13:02 02/10/24 16:04 02/10/24 16:04 02/10/24 16:04 02/10/24 16:04
Physical Exam
General: Well Developed, Well Nourished and No Apparent Distress
HEENT: NormoCephalic, Moist mucous membranes and Atraumatic
Respiratory: Clear
Cardiac: S1/S2 and Regular Rhythm; No Murmur or Rub
GI: Soft, Non Tender, Non Distended and Normal Bowel Sounds; No Organomegaly
Rectal: Deferred by Provider
Musculoskeletal: No Clubbing, No Cyanosis and No Edema
Skin: No Rash
Neuro: Nonfocal/grossly intact
Laboratory Results
-
02/10/24 14:31
02/10/24 14:31
Laboratory Results
Lactic Acid Cancelled 02/10/24 18:30
Total Bilirubin 0.4 mg/dl (0.2-1.3) 02/10/24 14:31
AST 22 U/L (17-59) 02/10/24 14:31
ALT 29 U/L (0-50) 02/10/24 14:31
Alkaline Phosphatase 104 U/L (38-126) 02/10/24 14:31
Data Reviewed
-
Lab Data: Labs Reviewed by me
Old Records: Reviewed
Impression/Plan
-
IMPRESSION:
PLAN:
# Diabetic foot infection of right medial foot with surrounding cellulitis, rule out osteomyelitis
# Stable diabetic foot ulcer on plantar surface of foot
-Foot x-ray does not show any evidence of osteomyelitis
-Prior wound culture showed E. coli, Klebsiella, staph species
-Check wound culture, blood cultures
-Vancomycin, Zosyn
-Check MRI foot
-Podiatry consulted
-Dilaudid for pain
-wound care
# MARTINEZ on CKD likely secondary to recovering ATN versus prerenal
-Baseline creatinine 1.3, currently 1.6 from peak of 1.9 on 01/17
-Hold losartan
- IV fluids
Type 2 diabetes
-Hold glipizide
-Continue Jardiance
-Insulin sliding scale
Essential hypertension
-Continue metoprolol
Coronary artery disease with history of stents, CABG
-Continue aspirin, Plavix, statin
Hyperlipidemia
-Continue statin
Full code
DVT prophylaxis�SCDs
Diabetic diet
[2024-02-10 17:34] VITALS: BMI 27.2
[2024-02-10 17:39] VITALS: BP 162/77
[2024-02-10] MEDS: DILAUDID 0.5 MG IV (18:24)
[2024-02-10] MEDS: LIPITOR 40 MG PO (18:26)
[2024-02-10] MEDS: NSS 1000 IV (18:38)
--- NOTE | 2024-02-10 18:42 | PHA.VAN.IN ---
Assessment
- Assessment
Renal Function: Appears elevated from baseline (01/11/24 BASELINE SCR: 1.3)
Concomitant Antimicrobials: ZOSYN
- Previous Dosing Experience
Previous Regimen: 1GM IV Q24H
Date of Regimen: 01/21/24
Provided Trough of: UNKNOWN
Provided AUC of: UNKNOWN
Patient's SCR is: Elevated compared to previous dosing experience (01/20/22 SCR = 1.2)
Patient's weight is: Elevated compared to previous dosing experience (01/20/22 WT = 73.8 KG)
Plan
- Plan
Initial / Loading Dose: 2GM
Maintenance Regimen: DOSING BY RANDOM LEVEL
Monitoring: RANDOM VANCOMYCIN LEVEL 02/11/24 AM
Pharmacokinetics Vancomycin I
- -
Patient Age: 73
Patient Sex: Male
Vancomycin Day #: 1
Indication: Diabetic Foot
Height / Weight:
Height 5 ft 8 in
Actual Weight 81.148 kg
Pertinent Past Medical History: IDDM
- Vital Signs / Lab Results
Temp Pulse Resp BP Pulse Ox
99.5 F 85 16 162/77 98
02/10/24 17:39 02/10/24 17:39 02/10/24 17:39 02/10/24 17:39 02/10/24 17:39
Lab Results - Hematology
02/10/24
14:31
WBC 13.6 H
Lab Results - Chemistry
02/10/24
14:31
BUN 31 H
Creatinine 1.6 H
Estimated Creat Clear 41
Albumin 3.2 L
02/10/24 02/10/24
14:31 18:30
Lactic Acid 0.8 Cancelled
Microbiology Results
02/10/24 16:01 Gram Stain - Preliminary
Foot - Right
[2024-02-10] MEDS: NOVOLOG FLEXPEN-LOW RESISTANCE SC (18:51)
[2024-02-10] MEDS: LOPRESSOR 25 MG PO (20:43)
[2024-02-10] MEDS: PRED FORTE 1% EYE DROPS 1 DROP LEFT EYE (20:44)
[2024-02-10 21:29] LABS: Glucose - Point of Care 176 mg/dl (70-99)
[2024-02-10 23:00] VITALS: BP 126/63
[2024-02-11] MEDS: ZOSYN 50 IV ×4 (01:50→22:28)
[2024-02-11] MEDS: DILAUDID 0.5 MG IV ×3 (01:51→21:04)
[2024-02-11] MEDS: NSS 1000 IV ×2 (06:34→16:38)
[2024-02-11 07:05] LABS: Glucose - Point of Care 161 mg/dl (70-99)
[2024-02-11 07:33] LABS: Vancomycin Random 14.6 ug/ml
[2024-02-11 07:36] LABS: % Basophils 0.4 % (0-2); % Eosinophils 3.9 % (0-6); % Immature Granulocytes 0.5 % (0-0.5); % Lymphocytes 8.6 % (20.5-51.1); % Monocytes 7.3 % (1.7-9.3); % Neutrophils 79.3 % (42.2-75.2); Absolute Eosinophils 0.4 10^3/uL (0-0.7); Absolute Immature Granulocytes 0.1 10^3/uL (0-0.05); Absolute Lymphocytes 0.9 10^3/uL (1.2-3.4); Absolute Monocytes 0.8 10^3/uL (0.1-0.6); Absolute Neutrophils 8.4 10^3/uL (1.4-6.5); Hematocrit 32.7 % (39.0-52.0); Hemoglobin 10.2 g/dL (13.0-18.0); Mean Corp Hgb Conc. 31.2 g/dL (33.0-37.0); Mean Corpuscular Hgb 27.3 pg (27.0-31.0); Mean Corpuscular Volume 87.7 fL (80.0-94.0); Nucleated Red Blood Cells % 0 % (-); Platelet Count 206 10^3/uL (130-400); Red Blood Cell Count 3.73 10^6/uL (4.70-6.10); Red Cell Dist. Width 12.6 % (11.5-14.5); White Blood Cell Count 10.6 10^3/uL (4.8-10.8)
[2024-02-11 07:46] VITALS: BP 150/65
[2024-02-11 07:50] LABS: ALT (SGPT) 22 U/L (0-50); AST (SGOT) 15 U/L (17-59); Albumin 2.8 g/dl (3.5-5.0); Alkaline Phosphatase 101 U/L (38-126); Blood Urea Nitrogen 31 mg/dl (9-20); Calcium 8.6 mg/dl (8.4-10.2); Carbon Dioxide 17 mmol/L (22-30); Chloride 112 mmol/L (98-107); Estimated Creatinine Clearance 35 ml/min; Glucose 155 mg/dl (70-99); Potassium 4.2 mmol/L (3.5-5.1); Sodium 137 mmol/L (135-145); Total Bilirubin 0.3 mg/dl (0.2-1.3); Total Protein 5.3 g/dl (6.3-8.2); eGFR 37.25
[2024-02-11] MEDS: LOPRESSOR 25 MG PO ×2 (08:08→20:13)
[2024-02-11] MEDS: THERAGRAN 1 TABLET PO (08:08)
[2024-02-11] MEDS: JARDIANCE 10 MG PO (08:08)
[2024-02-11] MEDS: LOW STRENGTH ASPIRIN 81 MG PO (08:08)
[2024-02-11] MEDS: NOVOLOG FLEXPEN-LOW RESISTANCE SC (08:09)
[2024-02-11] MEDS: PRED FORTE 1% EYE DROPS 1 DROP RIGHT EYE (08:09)
[2024-02-11] MEDS: NOVOLOG FLEXPEN-LOW RESISTANCE 1 UNITS SC (08:09)
[2024-02-11] MEDS: PRED FORTE 1% EYE DROPS 1 DROP LEFT EYE ×2 (08:09→20:14)
--- NOTE | 2024-02-11 09:00 | WOUNDNOTE ---
R PLANTAR 1ST MTH
--- NOTE | 2024-02-11 09:00 | WOUNDNOTE ---
R 1ST MTH (MEDIAL, PLANTAR); 2 wounds communicate under skin.
--- NOTE | 2024-02-11 09:00 | WOUNDNOTE ---
[facility] RN note: Patient admitted with diabetic foot infection, r/o OM. Patient lives at home and is followed by Dr. Gambino who is away at a conference as per patient.
See H&P for complete history.
PMH: DM, CAD with stents, CABG, HTN, recent hospital stay for infected R foot plantar foot wound.
Wound Location and type/assessment: Patient admitted with: R medial and plantar 1st MTH full thickness to muscle or deeper diabetic ulcers which communicate under the skin. Ulcers pink with yellow necrotic slough, +odor,+ difffuse erythema R medial
and dorsal forefoot. MRI on order. Patient has been wearing a forefoot off loading wedge shoe R foot. Trace RLE edema. +Palpable pedal pulses. Last arterial Doppler 10/17/22 R SUN 1.17, R toe .53; L SUN 1.10, L toe .64, small vessel disease suspected
on report. Mild lower back rash. Heels blanchable mild red.
Appetite: good.
Pressure redistribution devices in place: [employer] Accumax. Patient is mobile.
Plan: Dressing changed R foot. Heels off bed with pillow. Instructed patient pressure injury prevention measures. Dr. Espinoza public aid eligibility assistant on consult to manage foot wound. Will follow peripherally as needed.
Care plan to be updated and will follow as needed.
--- NOTE | 2024-02-11 09:04 | PHA.VAN.FU ---
Vancomycin Assessment / Plan
- Assessment
Renal Function: SCR Increasing
WBC's are: WNL
In the past 24 hrs, patient has been: Afebrile
Concomitant Antimicrobials: piperacillin/tazobactam
- Assessment - Therapeutic Drug Monitoring
Random Level: 14.6 - drawn ~14.5H after 2000mg loading dose
- Dosing Plan
Dosing by Level: Re-dose today (Vanc 1000mg)
- Monitoring Plan
Random Level: 02/11 06
- Follow Up
Pharmacy will continue to follow.
Vancomycin Follow UP
- -
Patient Age: 73
Patient Sex: Male
Vancomycin Day #: 2
Indication: Diabetic Foot
Requesting Provider: Dr. Post
Pertinent Antimicrobial Allergies:
no pertinent antibiotic allergies
Height / Weight:
Height 5 ft 8 in
Actual Weight 81.148 kg
Pertinent Past Medical History: DM 2, CKD (baseline SCR 1.3)
- Vital Signs / Lab Results
Temp Pulse Resp BP Pulse Ox
98.7 F 73 17 150/65 97
02/11/24 07:46 02/11/24 07:46 02/11/24 07:46 02/11/24 07:46 02/11/24 07:46
Lab Results - Hematology
02/10/24 02/11/24
14:31 06:39
WBC 13.6 H 10.6
Lab Results - Chemistry
02/10/24 02/11/24
14:31 06:39
BUN 31 H 31 H
Creatinine 1.6 H 1.9 H
Estimated Creat Clear 41 35
Albumin 3.2 L 2.8 L
02/10/24 02/10/24
14:31 18:30
Lactic Acid 0.8 Cancelled
Microbiology Results
02/10/24 16:01 Gram Stain - Preliminary
Foot - Right
Therapeutic Drug Monitoring
Random Vancomycin 14.6 ug/ml 02/11/24 06:39
--- NOTE | 2024-02-11 09:40 | W.PN.HOSP.TC ---
Today's Communication/Plan
-
see A/P
Assessment / Plan
Assessment / Plan
73-year-old male past medical history of diabetes, CAD with stents, prior CABG, hypertension, hyperlipidemia, presented to the ER from [facility] due to persistent diabetic right foot infection. Patient was recently admitted to from 01/08 to
01/11 for diabetic right foot infection and was treated with IV antibiotics and discharged on doxycycline and cefdinir which he took for 20 days following discharge from the hospital (he finished 5 days [facility]AM [facility]OX [facility]). He had gradual improvement following
discharge but then had acute worsening 2 days [facility].
He states that the wound on the sole of the right foot seems unchanged but noticed that there was worsening redness and swelling surrounding the wound on the medial aspect of the right great toe where he previously had a callus. He has significant
pain of his right foot. He saw [facility] who sent him to the emergency room.
He does consume 1 drink of alcohol every few days. He denies smoking.
A/P:
# Diabetic foot infection of right medial aspect with surrounding cellulitis, rule out osteomyelitis
# Stable diabetic foot ulcer on plantar surface of foot
Foot x-ray does not show any evidence of osteomyelitis
MRI ordered to eval for OM
Prior wound culture showed E. coli, Klebsiella, staph species
Check wound culture, blood cultures
Cont Vancomycin, Zosyn
ID CS
Podiatry consulted
wound care CS
Pain control with Dilaudid
# MARTINEZ on CKD likely secondary to recovering ATN versus prerenal
Baseline creatinine 1.3, SCr at 1.6 on admission, today at 1.9
Hold STEAM BOX HAND losartan
Cont IV fluids
Monitor SCr and if worsening, consider renal CS
# Type 2 diabetes
Hold glipizide
Continue Jardiance
Insulin sliding scale
# Essential hypertension
Continue metoprolol
# Coronary artery disease with history of stents, CABG
Continue aspirin, Plavix, statin
# Hyperlipidemia
Continue statin
Full code
DVT prophylaxis�SCDs
Diabetic diet
Anticipated Discharge: > 48 hours
Subjective/Interval History
-
Date of Service: February 11, 2024
Objective Data
-
Labs:
Laboratory Results
02/11/24
06:39
WBC 10.6
Hgb 10.2 L
Hct 32.7 L
Plt Count 206
Sodium 137
Potassium 4.2
Chloride 112 H
Carbon Dioxide 17 L
BUN 31 H
Creatinine 1.9 H
Glucose 155 H
Calcium 8.6
Total Bilirubin 0.3
AST 15 L
ALT 22
Alkaline Phosphatase 101
Vital Signs:
Vital Signs
Temp Pulse Resp BP Pulse Ox
37.1 C 73 17 150/65 97
02/11/24 07:46 02/11/24 07:46 02/11/24 07:46 02/11/24 07:46 02/11/24 07:46
I&O
02/10/24 02/11/24 02/12/24
06:59 06:59 06:59
Intake Total 1380 / 1380
Balance 1380 / 1380
Review of Systems
-
Skin: Reports Other (R foot medial part with worsening skin lesion )
Physical Exam
-
General: Well Developed, Well Nourished, No Apparent Distress, Comfortable and Conversant
HEENT: Normocephalic
Respiratory: Clear to Auscultation and Non Labored Respirations; Negative Accessory Resp Muscle Use
Cardiac: Regular Rhythm and S1/S2
GI: Soft
Skin: Warm and Other (skin wound care note)
Neuro: Awake and Alert
Psych: Calm and Intact Judgement/Insight
Data Reviewed
-
Diagnostic Radiology: Report Reviewed by me
Labs: Labs Reviewed by me
[2024-02-11] MEDS: VANCOCIN 200 IV (12:07)
[2024-02-11 12:09] LABS: Glucose - Point of Care 234 mg/dl (70-99)
[2024-02-11] MEDS: NOVOLOG FLEXPEN-LOW RESISTANCE 2 UNITS SC ×2 (12:11→16:42)
--- NOTE | 2024-02-11 13:36 | CON.ID ---
Consultation
-
Date/Time Consultation Requested: 02/11/2024 07:38
Date/Time Consultation Performed: 02/11/2024 1337
Requesting Provider: Dr. Castorena
Performing Provider: Dr. Thomas
Reason for Consultation: Foot infection
Chief Complaint / Past History
History of Present Illness
Jayce Galloway is a 73-year-old man being evaluated at the request of Dr. Castorena in regards to right foot cellulitis and osteomyelitis.
Patient has a history of diabetes mellitus, and reports that he has been dealing with a callus on the medial aspect of his first met head for many years. He reports that in late December he developed erythema edema and pain from the area, and after
speaking with Podiatry he was sent to the ER. Here he was evaluated, cultures were obtained and he was placed on IV antibiotics. After several days he was transition to an oral regimen, for an additional 20 days of therapy. He reports close
follow-up with Podiatry as an outpatient. The day before this most recent admission he had noted increasing redness again of his foot along with swelling. He was seen by Podiatry, and again sent to the emergency room for further evaluation. He
also admits to some malodor of the area at that time. He denied any fevers or chills. He denied any erythema extending up his leg. He denied any lymphadenopathy. He did have increasing pain of the area prior to admission.
Past History
Additional Past Medical History:
CAD
Dyslipidemia
DM
Additional Past Surgical History:
CABG
PCTA with stenting
Allergy History:
Iodinated Contrast Media Allergy (Verified 01/09/24 12:57)
Rash
latex Allergy (Verified 01/09/24 12:57)
Rash
silk Allergy (Verified 01/09/24 12:57)
Rash
propoxyphene napsylate [From Darvocet-N] Adverse Reaction (Verified 01/09/24 12:57)
other
Medications Reviewed: Yes
Current Antibiotics:
Vancomycin (dosed per pharmacy)
Zosyn 3.375 g IV every 6 hours
Social History
Tobacco: Non-Smoker
Alcohol: Occasional
Drug: None
Personal:
Living: With Family
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
Family History
Family History: Not Pertinent
Review of Systems
Vital Signs
Temp Pulse Resp BP Pulse Ox
98.7 F 73 17 150/65 97
02/11/24 07:46 02/11/24 07:46 02/11/24 07:46 02/11/24 07:46 02/11/24 07:46
Physical Exam
Physical Exam
Constitutional: No Acute Distress, Comfortable and Non-toxic
Eyes: No Conjunctival Hemorrhage and Sclera Anicteric
Oral: No Thrush and No Ulcers
Cardiovascular: S1/S2; Negative S3/S4 or Murmur
Pulmonary: Non Labored
Gastrointestinal: Soft, Non Tender, Non Distended, Normal Bowel Sounds, No Rebound and No Guarding
Extremities: Erythema (Right hallux area); Negative Edema, Clubbing or Cyanosis
Wound: Other (Subfirst met head and lateral first met head wounds noted. Positive probe to bone. Slough in base of wound)
Neurological: Awake and Alert
Psychological: Calm
.
Lab / Diagnostic Study Results
02/11/24 06:39
02/11/24 06:39
Abs Immat Gran (auto) 0.1 10^3/uL (0-0.05) H 02/11/24 06:39
Absolute Neuts (auto) 8.4 10^3/uL (1.4-6.5) H 02/11/24 06:39
Absolute Lymphs (auto) 0.9 10^3/uL (1.2-3.4) L 02/11/24 06:39
Absolute Monos (auto) 0.8 10^3/uL (0.1-0.6) H 02/11/24 06:39
Absolute Basos (auto) 0.0 10^3/uL (0-0.2) 02/11/24 06:39
Immature Gran % 0.5 % (0-0.5) 02/11/24 06:39
Neutrophils % 79.3 % (42.2-75.2) H 02/11/24 06:39
Lymphocytes % 8.6 % (20.5-51.1) L 02/11/24 06:39
Monocytes % 7.3 % (1.7-9.3) 02/11/24 06:39
Eosinophils % 3.9 % (0-6) 02/11/24 06:39
Basophils % 0.4 % (0-2) 02/11/24 06:39
ESR 64 mm/hour (0-20) H 02/10/24 14:31
Lactic Acid Cancelled 02/10/24 18:30
C-Reactive Protein 73.40 mg/L (0.0-10.00) H 02/10/24 14:31
Microbiology Results
Micro:
02/10/24 16:01 Wound Culture - Preliminary
Foot - Right Gram Stain - Preliminary
02/10/24 18:16 MRSA Screen - Pending
Nose
02/10/24 14:31 Blood Culture - Pending
Blood/Venous
02/10/24 14:31 Blood Culture - Pending
Blood/Venous
Imaging:
02/11/2024 MRI right lower extremity: Acute osteomyelitis of the first proximal and distal phalanges, along with the head of the first and second metatarsals. Mild first digit flexor tenosynovitis. Soft tissue wound to the plantar medial forefoot
with contiguous rim-enhancing abscess appreciated. Severe diabetic myopathy noted.
02/10/2024 X-ray right foot: No findings to suggest focal cortical bony destructive process. No radiopaque soft tissue foreign bodies noted. Soft tissue ulceration of the skin along the plantar region distally on the lateral view. Please see full
dictation for additional detail.
Assessment / Plan
Right foot osteomyelitis
Leukocytosis
Elevated ESR
Elevated CRP
Diabetes mellitus (uncontrolled; HbA1c = 8.3)
CAD
Dyslipidemia
Recommendations:
Wound cultures are pending. Prior wound cultures from 01/09/2024 reviewed and revealed the presence of E. coli, Klebsiella and MSSA.
Continue with current antibiotics. Follow vanco levels closely.
Patient for tentative hallux and partial met resection. Proximal margin and 2nd met bx to be sent.
Monitor WBC and temp curve.
Glucose control.
--- NOTE | 2024-02-11 13:40 | CON.MD ---
Consultation - Medical
-
Mr. Galloway is a 73-year-old male with a past medical history of diabetes, CAD with stents, prior CABG, hypertension, hyperlipidemia, admitted for a right foot diabetic infection. Patient is know to Dr. Burns and Dr. Gambino and has been treated
since October with wound care and antibiotic therapy. Patient was recently admitted to the hospital from 01/08 to 01/11 for diabetic right foot infection and was treated with IV antibiotics and discharged on doxycycline and cefdinir which he took for
20 days following discharge. He had gradual improvement following discharge but then had acute worsening 2 days ago. He noted increased drainage, order, redness and pain of his right foot. He saw Dr. Burns yesterday who sent him to the emergency
room. He denies any fevers or chills, nausea or vomiting or chest pain or shortness of breath.
Past Medical History
diabetes, CAD with stents, prior CABG, hypertension, hyperlipidemia
Past Surgical History:
CABG, stent placement
Social History
Tobacco: Non-smoker
Alcohol: Occasional
Drug: None
Family History
Not pertinent
Allergies
Allergy/AdvReac Type Severity Reaction Status Date / Time
Iodinated Contrast Media Allergy Rash Verified 01/09/24 12:57
latex Allergy Rash Verified 01/09/24 12:57
silk Allergy Rash Verified 01/09/24 12:57
propoxyphene napsylate AdvReac other Verified 01/09/24 12:57
[From GilmerTez]
Home Medications
nitroglycerin 0.4 mg sublingual tablet 0.4 mg sublingual [id number] PRN chest pain ##25 12/30/16
atorvastatin 40 mg tablet 40 mg PO QPM High cholesterol 09/05/22
clotrimazole 1 % topical cream (Antifungal (clotrimazole)) 1 applic topical DAILYPRN PRN both feet RASH 09/05/22
empagliflozin 10 mg tablet (Jardiance) 10 mg PO DAILY Diabetes 09/05/22
prednisolone acetate 1 % eye drops,suspension 1 drp RIGHT EYE DAILY Eye condition 09/05/22
sildenafil 100 mg tablet 100 mg PO DAILY PRN ED 09/05/22
therapeutic multivitamin 1 tab PO DAILY Supplement 09/05/22
prednisolone acetate 1 % eye drops,suspension 1 drp LEFT EYE BID Eye Condition 01/09/24
aspirin 81 mg chewable tablet 81 mg PO DAILY Blood Clot Prevention/Tx 02/10/24
clopidogrel 75 mg tablet 75 mg PO DAILY Blood Clot Prevention/Tx 02/10/24
glipizide 5 mg tablet 5 mg PO BID@0800,1700 Diabetes 02/10/24
losartan 25 mg tablet 25 mg PO DAILY Blood Pressure 02/10/24
metoprolol tartrate 25 mg tablet 25 mg PO BID Blood Pressure 02/10/24
Review of Systems
-
History Source: Patient
A 12 point ROS was completed and negative except as noted: Yes
Constitutional: Reports No Symptoms
EENT: Reports No Symptoms
Respiratory: Reports No Symptoms
Cardiac: Reports No Symptoms
Abdomen/GI: Reports No Symptoms
: Reports No Symptoms
Musculoskeletal: Reports See HPI
Skin: Reports No Symptoms
Neurological: Reports No Symptoms
Endocrine: Reports No Symptoms
Hematologic/Lymphatic: Reports No Symptoms
Psych: Reports No Symptoms
Physical Exam
Right foot with palpable pulses, atrophic changes, loss of pedal hair, hyperpigmentation. There are two wound present around the first MPJ. The plantar wound probes to bone and measures 2.2 cm x 1.5 cm x 1 cm. The wound tracks in the 12 o'clock
position into the hallux plantarly along the flexor tendon. There is also a second wound medially overlying the first metatarsal medial eminence measuring 0.5 cm x 1.8 cm x 0.5 cm that also probes directly to bone. There is malodor, the would is
fibrotic and non viable. The wounds communicate. No prabha purulence
Xray: negative for obvious osteomyelitis
MRI:
1. Acute osteomyelitis of the first proximal and distal phalanges, and the heads of the first and second metatarsals
2. Mild first digit flexor tenosynovitis, likely infectious.
3. Soft tissue wounds of the plantar medial forefoot with contiguous rim-enhancing abscess wrapping around the plantar aspect of the first metatarsophalangeal joint.
4. Severe diabetic myopathy.
Last SUN (10/17/22):
1. Right ankle-brachial index measures 1.17, compared to 1.25 on prior. No large vessel stenosis demonstrated. Mild small vessel disease is suspected based on mildly depressed toe brachial index.
2. Left ankle-brachial index 1.1, compared to 1.3 on prior. No large vessel stenosis demonstrated. Mild small vessel disease is suspected based on mildly depressed toe brachial index.
-Prior wound culture showed E. coli, Klebsiella, staph species
Impression:
Diabetic foot infection of right medial foot with surrounding cellulitis
Osteomyelitis of the hallux, first metatarsal head and possibly the second metatarsal head
Type 2 Diabetes Mellitus
Plan:
Await blood culture and wound culture results
Continue Vanco/Zosyn
ID consult
Known to Dr. Moreno from several years ago - recommend Vascular evaluation. Last SUN showed small vessel disease and depressed TBI
Discussed the results of the MRI with him at bedside in great detail. I am recommending right partial first Ray amputation with bone biopsy of the second metatarsal bone.
NPO after breakfast tomorrow for 4pm OR surgery
Hold Plavix
Surgical consent is reviewed and discussed. Discussed risks, benefits and complications of surgery. Discussed alternatives and he has declined a second opinion
[2024-02-11] MEDS: ZOSYN IV (14:51)
--- NOTE | 2024-02-11 15:16 | CON.VAS ---
Addendum entered and electronically signed by Branden Moreno III, MD 02/12/24 15:28:
This patient was seen and examined with HALLE Lamb and HALLE Mirza. I agree with the history and physical exam as well as the assessment and plan. I have the following additions:
Right foot wounds with underlying osteomyelitis
On exam he is nontoxic
Right foot is warm
Easily palpable dorsalis pedis pulse
Weakly palpable posterior tibial
I reviewed his noninvasive arterial studies demonstrating normal SUN and a TBI of 1.16 which is increased compared to the prior exam (0.53).
He is on the schedule for toe amputations with podiatry today.
Plan will be for close postoperative surveillance of his wound healing. If needed we can proceed with arteriogram and possible endovascular intervention if wound healing is poor.
Will follow peripherally while in house and I will see him in the office for follow-up after discharge
Signed:
Branden Moreno III, MD
[facility] [address] [facility]
[phone] (fnkr)
Original Note:
Consultation
Consultation Request
Date/Time Consultation Performed: 02/11/2024 1515
Requesting Provider: Luisa Espinoza DPM
Performing Provider: SHAHNAZ Mcwilliams
Reason for Consultation: Right foot chronic wound
Medical History
-
Chief Complaint: Right foot chronic wound
History of Present Illness:
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
Patient endorses wound dates back to October, and capsule filling machine operator Dr. Gambino has been managing would care in the outpatient setting. Of note he was also hospitalized from 01/09/24 to 01/12/2024 for current wound infection, he was treated with IV
antibiotics and discharged home on a PO course. Patient notes following that admission he had continued progression/improvement in wound until roughly 2-3 days ago when he noted drainage, odor, redness, and pain at right foot. He denies any fevers
or chills, nausea or vomiting or chest pain or shortness of breath. He is known to our service as part of his wound care team, denies previous interventions for peripheral arterial disease. Current surgical plan is for amputation of right foot
hallux with podiatry for confirmed osteomyelitis.
Past Medical History
Past Medical History: CAD, HTN, NIDDM and Other (TIA, HLD)
Past Surgical History: Cardiac (CABG x 2, PCI), Orthopedic and Other (cornea transplant)
Social History
Tobacco: Non-Smoker
Alcohol: Occasional
Drug: None
Allergies / Home Medications
Allergy/AdvReac Type Severity Reaction Status Date / Time
Iodinated Contrast Media Allergy Rash Verified 01/09/24 12:57
latex Allergy Rash Verified 01/09/24 12:57
silk Allergy Rash Verified 01/09/24 12:57
propoxyphene napsylate AdvReac other Verified 01/09/24 12:57
[From Jennifer]
�Medication �Instructions �Recorded �Confirmed �Type
nitroglycerin 0.4 mg sublingual 0.4 mg sublingual [id number] PRN 12/30/16 02/10/24 Rx
tablet chest pain ##25
atorvastatin 40 mg tablet 40 mg PO QPM High cholesterol 09/05/22 02/10/24 History
clotrimazole 1 % topical cream 1 applic topical DAILYPRN PRN both 09/05/22 02/10/24 History
(Antifungal (clotrimazole)) feet RASH
empagliflozin 10 mg tablet 10 mg PO DAILY Diabetes 09/05/22 02/10/24 History
(Jardiance)
prednisolone acetate 1 % eye 1 drp RIGHT EYE DAILY Eye condition 09/05/22 02/10/24 History
drops,suspension
sildenafil 100 mg tablet 100 mg PO DAILY PRN ED 09/05/22 02/10/24 History
therapeutic multivitamin 1 tab PO DAILY Supplement 09/05/22 02/10/24 History
prednisolone acetate 1 % eye 1 drp LEFT EYE BID Eye Condition 01/09/24 02/10/24 History
drops,suspension
aspirin 81 mg chewable tablet 81 mg PO DAILY Blood Clot 02/10/24 02/10/24 History
Prevention/Tx
clopidogrel 75 mg tablet 75 mg PO DAILY Blood Clot 02/10/24 02/10/24 History
Prevention/Tx
glipizide 5 mg tablet 5 mg PO BID@0800,1700 Diabetes 02/10/24 02/10/24 History
losartan 25 mg tablet 25 mg PO DAILY Blood Pressure 02/10/24 02/10/24 History
metoprolol tartrate 25 mg tablet 25 mg PO BID Blood Pressure 02/10/24 02/10/24 History
Review of Systems
-
History Source: Patient
Constitutional: Reports No Symptoms
EENT: Reports No Symptoms
Respiratory: Reports No Symptoms
Cardiac: Reports No Symptoms
Vascular: Denies Leg Pain / Claudication
Abdomen/GI: Reports No Symptoms
: Reports No Symptoms
Musculoskeletal: Reports Edema (right foot)
Skin: Reports Other (right foot hallux and second toe wound with involvement of dorsum and medial side )
Neurological: Reports No Symptoms
Endocrine: Reports No Symptoms
Physical Exam
Vital Signs
Temp Pulse Resp BP Pulse Ox
98.7 F 73 17 150/65 97
02/11/24 07:46 02/11/24 07:46 02/11/24 07:46 02/11/24 07:46 02/11/24 07:46
Lab Results
02/11/24 06:39
02/11/24 06:39
Physical Exam
General: No Apparent Distress and Comfortable
HEENT: Normocephalic and Anicteric
Respiratory: Non Labored Respirations
Cardiac: Negative JVD
GI: Soft, Non Tender and Non Distended
Musculoskeletal: Edema (+1 right foot)
Skin: Other (right foot hallux/second toe with extension to dorsum and medial side of foot wound, draining, and odor present )
Neuro: AO x 3
Pulses: Bilateral Femoral: +2, Bilateral Dorsalis Pedis: +2 and Bilateral Posterior Tibial: +1
Assessment / Plan
-
Assessment: 73 year old male with chronic right foot wound and known small vessel disease
Plan:
Repeat arterial US and SUN/TBI pending
Physical exam of palpable DP/PT pulse further supports small vessel disease, will likely recommend continued medical management. However, will provided definite plan once non-invasive tests are obtained.
[2024-02-11 16:09] VITALS: BP 151/65
[2024-02-11 16:38] LABS: Glucose - Point of Care 244 mg/dl (70-99)
[2024-02-11] MEDS: LIPITOR 40 MG PO (16:41)
[2024-02-11] MEDS: FLUSH (NSS) 2 FLUSH IV (21:05)
[2024-02-11 22:00] LABS: Glucose - Point of Care 248 mg/dl (70-99)
[2024-02-11 23:00] VITALS: BP 150/62
[2024-02-12] MEDS: DILAUDID 0.5 MG IV (01:11)
[2024-02-12] MEDS: NSS 1000 IV ×2 (01:13→16:07)
[2024-02-12] MEDS: ZOSYN 50 IV ×4 (04:00→22:12)
[2024-02-12 06:59] LABS: Hematocrit 30.8 % (39.0-52.0); Hemoglobin 9.8 g/dL (13.0-18.0); Mean Corp Hgb Conc. 31.8 g/dL (33.0-37.0); Mean Corpuscular Hgb 28.2 pg (27.0-31.0); Mean Corpuscular Volume 88.5 fL (80.0-94.0); Platelet Count 186 10^3/uL (130-400); Red Blood Cell Count 3.48 10^6/uL (4.70-6.10); Red Cell Dist. Width 12.6 % (11.5-14.5); White Blood Cell Count 10.7 10^3/uL (4.8-10.8)
[2024-02-12 07:15] LABS: Glucose - Point of Care 207 mg/dl (70-99)
[2024-02-12 07:20] LABS: Blood Urea Nitrogen 29 mg/dl (9-20); Calcium 9.1 mg/dl (8.4-10.2); Carbon Dioxide 17 mmol/L (22-30); Chloride 111 mmol/L (98-107); Estimated Creatinine Clearance 36 ml/min; Glucose 181 mg/dl (70-99); Magnesium 2.1 mg/dl (1.6-2.3); Potassium 4.3 mmol/L (3.5-5.1); Sodium 135 mmol/L (135-145); eGFR 39.75
[2024-02-12 07:31] LABS: Vancomycin Random 14.2 ug/ml
[2024-02-12 07:45] VITALS: BP 149/66
[2024-02-12] MEDS: NOVOLOG FLEXPEN-LOW RESISTANCE 2 UNITS SC ×2 (08:32→12:23)
[2024-02-12] MEDS: JARDIANCE 10 MG PO (08:33)
[2024-02-12] MEDS: LOW STRENGTH ASPIRIN 81 MG PO (08:33)
[2024-02-12] MEDS: THERAGRAN 1 TABLET PO (08:33)
[2024-02-12] MEDS: PRED FORTE 1% EYE DROPS 1 DROP RIGHT EYE (08:34)
[2024-02-12] MEDS: PRED FORTE 1% EYE DROPS 1 DROP LEFT EYE ×2 (08:35→19:55)
[2024-02-12] MEDS: LOPRESSOR 25 MG PO ×2 (08:38→19:54)
--- NOTE | 2024-02-12 08:56 | PHA.VAN.FU ---
Vancomycin Assessment / Plan
- Assessment
Renal Function: SCR Decreasing (1.6->1.9->1.8)
WBC's are: WNL
In the past 24 hrs, patient has been: Afebrile
Concomitant Antimicrobials: Piperacillin/tazobactam
- Assessment - Therapeutic Drug Monitoring
Random Level: 14.2 ~ 18 hours after 1000 mg dose
- Dosing Plan
Continue: dose by random level
Dosing by Level: Re-dose today (1000 mg x 1 dose)
- Monitoring Plan
Random Level: ordered for AM 02/13/24
- Follow Up
Pharmacy will continue to follow.
Vancomycin Follow UP
- -
Patient Age: 73
Patient Sex: Male
Vancomycin Day #: 3
Indication: Diabetic Foot
Requesting Provider: Dr. Post
Pertinent Antimicrobial Allergies:
no pertinent antibiotic allergies
Height / Weight:
Height 5 ft 8 in
Actual Weight 81.148 kg
Pertinent Past Medical History: DM 2, CKD (baseline SCR 1.3)
- Vital Signs / Lab Results
Temp Pulse Resp BP Pulse Ox
98.6 F 77 16 149/66 94
02/12/24 07:45 02/12/24 07:45 02/12/24 07:45 02/12/24 07:45 02/12/24 07:45
Lab Results - Hematology
02/10/24 02/11/24 02/12/24
14:31 06:39 06:37
WBC 13.6 H 10.6 10.7
Lab Results - Chemistry
02/10/24 02/11/24 02/12/24
14:31 06:39 06:37
BUN 31 H 31 H 29 H
Creatinine 1.6 H 1.9 H 1.8 H
Estimated Creat Clear 41 35 36
Albumin 3.2 L 2.8 L
02/10/24 02/10/24
14:31 18:30
Lactic Acid 0.8 Cancelled
Microbiology Results
02/10/24 18:16 MRSA Screen - Final
Nose No Methicillin Resistant Staphylococcus aureus isolated.
02/10/24 14:31 Blood Culture - Preliminary
Blood/Venous No Growth in 24 hours- Final report to follow
02/10/24 14:31 Blood Culture - Preliminary
Blood/Venous No Growth in 24 hours- Final report to follow
02/10/24 16:01 Wound Culture - Preliminary
Foot - Right Gram Stain - Preliminary
Therapeutic Drug Monitoring
Random Vancomycin 14.2 ug/ml 02/12/24 06:37
--- NOTE | 2024-02-12 09:58 | W.PN.HOSP.TC ---
Today's Communication/Plan
-
see A/P
Assessment / Plan
Assessment / Plan
73-year-old male past medical history of diabetes, CAD with stents, prior CABG, hypertension, hyperlipidemia, presented to the ER from artificial cherry maker office due to persistent diabetic right foot infection. Patient was recently admitted to from 01/08 to
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 He had gradual improvement following
discharge but then had acute worsening 2 days ICE PLATFORM SUPERVISOR.
He states that the wound on the sole of the right foot seems unchanged but noticed that there was worsening redness and swelling surrounding the wound on the medial aspect of the right great toe where he previously had a callus. He has significant
pain of his right foot. He saw artificial cherry maker who sent him to the emergency room.
He does consume 1 drink of alcohol every few days. He denies smoking.
A/P:
# Diabetic foot infection of right medial aspect with surrounding cellulitis and acute OM of the first proximal and distal phalanges
# Stable diabetic foot ulcer on plantar surface of foot
Foot x-ray does not show any evidence of osteomyelitis
However, MRI noted acute OM of the first proximal and distal phalanges, and the heads of the first and second metatarsals. Also noted mild first digit flexor tenosynovitis, likely infectious. Soft tissue wounds of the plantar medial forefoot with
contiguous rim-enhancing abscess wrapping around the plantar aspect of the first metatarsophalangeal joint. Severe diabetic myopathy.
Follow wound culture
blood cultures so far no growth
Cont Vancomycin, Zosyn
Podiatry on board, plan for right partial first Ray amputation with bone biopsy of the second metatarsal bone.
Vascular on board
ID on board
wound care on board
Pain control with Dilaudid
# MARTINEZ on CKD likely secondary to recovering ATN versus prerenal
Baseline creatinine 1.3, SCr at 1.6 on admission, today at 1.8
Hold ICE PLATFORM SUPERVISOR losartan
Cont IV fluids
Monitor SCr and if worsening, consider renal CS
# Type 2 diabetes
Hold glipizide
Continue Jardiance
Insulin sliding scale
# Essential hypertension
Continue metoprolol
# Coronary artery disease with history of stents, CABG
Continue aspirin, statin
Plavix on hold preop
# Hyperlipidemia
Continue statin
Full code
DVT prophylaxis�SCDs
Diabetic diet
Anticipated Discharge: > 48 hours
Subjective/Interval History
-
Date of Service: February 12, 2024
Objective Data
-
Labs:
Laboratory Results
02/12/24
06:37
WBC 10.7
Hgb 9.8 L
Hct 30.8 L
Plt Count 186
Sodium 135
Potassium 4.3
Chloride 111 H
Carbon Dioxide 17 L
BUN 29 H
Creatinine 1.8 H
Glucose 181 H
Calcium 9.1
Vital Signs:
Vital Signs
Temp Pulse Resp BP Pulse Ox
37.0 C 77 16 149/66 94
02/12/24 07:45 02/12/24 07:45 02/12/24 07:45 02/12/24 07:45 02/12/24 07:45
I&O
02/11/24 02/12/24 02/13/24
06:59 06:59 06:59
Intake Total 1380 / 1380 1900 / 1900
Balance 1380 / 1380 190 / 190
Review of Systems
-
Skin: Reports Other (R foot medial part with worsening skin lesion )
Physical Exam
-
General: Well Developed, Well Nourished, No Apparent Distress, Comfortable and Conversant
HEENT: Normocephalic
Respiratory: Clear to Auscultation and Non Labored Respirations; Negative Accessory Resp Muscle Use
Cardiac: Regular Rhythm and S1/S2
GI: Soft
Skin: Warm and Other (skin wound care note)
Neuro: Awake and Alert
Psych: Calm and Intact Judgement/Insight
Data Reviewed
-
Diagnostic Radiology: Report Reviewed by me
MRI: Report Reviewed by me
Labs: Labs Reviewed by me
--- NOTE | 2024-02-12 10:48 | CM ---
CM following re: discharge planning.
Reviewed pt's chart, met with pt and pt's best friend at bedside.
pt is a 73 year old male, admitted with primary dx of Diabetic foot infection. Per MD, plan for right partial first Ray amputation with bone biopsy of the second metatarsal bone.
Pt reports he lives with spouse in a 2SH, 3 steps to enter, has 2 supportive children. 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 No DME or SNF history. Known to [facility] and pt requested to have [facility] at discharge if recommended.
PT and OT will evaluate the pt after surgery.
PCP: Oneal Briggs
Pharmacy: [facility]
D/C plan: pt feels he will be able to return back home with [facility] and family. PT and OT to confirm.
CM will follow with discharge plan updates as hospitalization progresses.
[2024-02-12] MEDS: VANCOCIN 200 IV (11:55)
[2024-02-12 12:17] LABS: Glucose - Point of Care 226 mg/dl (70-99)
--- NOTE | 2024-02-12 12:30 | W.PN.ID1 ---
Date of Service
Date of Service: February 12, 2024
Today's Communication
Continue abx. Await right hallux amputation.
Assessment / Plan
Right foot osteomyelitis
Leukocytosis
Elevated ESR
Elevated CRP
Diabetes mellitus (uncontrolled; HbA1c = 8.3)
CAD
Dyslipidemia
Recommendations:
Wound cultures polymicrobial, likely reflecting the superficial microbiology of the wound.
Prior wound cultures from 01/09/2024 reviewed and revealed the presence of E. coli, Klebsiella and MSSA.
Continue with current antibiotics. Follow vanco levels closely.
Patient for tentative hallux and partial met resection today. Proximal margin and 2nd met bx to be sent.
Monitor WBC and temp curve.
Glucose control.
Chief Complaint
-: Other (foot osteo)
Subjective / Review of Systems
Review of Systems: No Fever and No Chills
Vital Signs / Physical Exam
Vital Signs
Vital Signs
Temp Pulse Resp BP Pulse Ox
98.6 F 77 16 149/66 94
02/12/24 07:45 02/12/24 07:45 02/12/24 07:45 02/12/24 07:45 02/12/24 07:45
Physical Exam
Constitutional: No Acute Distress, Comfortable and Non-toxic
Eyes: Sclera Anicteric
Pulmonary: Non Labored
Wound: Other (foot dressed. No erythema up leg)
Neurological: Awake
Psychological: Calm
Objective Data
Lab Data
Lab Results
02/12/24 06:37
02/12/24 06:37
ESR 64 mm/hour (0-20) H 02/10/24 14:31
Estimated Creat Clear 36 ml/min 02/12/24 06:37
Lactic Acid Cancelled 02/10/24 18:30
Total Bilirubin 0.3 mg/dl (0.2-1.3) 02/11/24 06:39
AST 15 U/L (17-59) L 02/11/24 06:39
ALT 22 U/L (0-50) 02/11/24 06:39
Alkaline Phosphatase 101 U/L (38-126) 02/11/24 06:39
C-Reactive Protein 73.40 mg/L (0.0-10.00) H 02/10/24 14:31
Most recent labs reviewed.
Micro Results:
02/10/24 16:01 Wound Culture - Final
Foot - Right Pseudomonas aeruginosa
Escherichia coli
Gram negative bacilli
Enterococcus species
Coagulase neg. staphylococcus
Streptococcus species
Gram Stain - Final
02/10/24 18:16 MRSA Screen - Final
Nose No Methicillin Resistant Staphylococcus aureus isolated.
02/10/24 14:31 Blood Culture - Preliminary
Blood/Venous No Growth in 24 hours- Final report to follow
02/10/24 14:31 Blood Culture - Preliminary
Blood/Venous No Growth in 24 hours- Final report to follow
Imaging:
02/11/2024 MRI right lower extremity: Acute osteomyelitis of the first proximal and distal phalanges, along with the head of the first and second metatarsals. Mild first digit flexor tenosynovitis. Soft tissue wound to the plantar medial forefoot
with contiguous rim-enhancing abscess appreciated. Severe diabetic myopathy noted.
02/10/2024 X-ray right foot: No findings to suggest focal cortical bony destructive process. No radiopaque soft tissue foreign bodies noted. Soft tissue ulceration of the skin along the plantar region distally on the lateral view. Please see full
dictation for additional detail.
[2024-02-12 15:09] VITALS: BP 165/69
[2024-02-12 17:58] LABS: Glucose - Point of Care 160 mg/dl (70-99)
[2024-02-12] MEDS: NOVOLOG FLEXPEN-LOW RESISTANCE 1 UNITS SC (18:06)
[2024-02-12] MEDS: DILAUDID 0.25 MG IV ×2 (18:10→22:17)
[2024-02-12] MEDS: LIPITOR 40 MG PO (18:10)
--- NOTE | 2024-02-12 18:14 | W.PN.UPDATE ---
Update Note
Progress Note Update
Our Operating room time was unfortunately postposed due to an emergent case. He is rescheduled for 8 am tomorrow morning per the OR staff. Npo after midnight tonight.
[2024-02-12 21:19] LABS: Glucose - Point of Care 253 mg/dl (70-99)
[2024-02-12 23:00] VITALS: BP 154/69
[2024-02-13] VITALS (8 sets, daily range): BP systolic 124–160; BP diastolic 54–81
[2024-02-13] MEDS: ZOSYN 50 IV ×4 (04:50→22:17)
[2024-02-13 06:15] LABS: Glucose - Point of Care 182 mg/dl (70-99)
[2024-02-13 07:44] LABS: Hematocrit 32.6 % (39.0-52.0); Hemoglobin 10.3 g/dL (13.0-18.0); Mean Corp Hgb Conc. 31.6 g/dL (33.0-37.0); Mean Corpuscular Hgb 27.5 pg (27.0-31.0); Mean Corpuscular Volume 86.9 fL (80.0-94.0); Mean Platelet Volume 11.2 fL (7.4-10.4); Platelet Count 222 10^3/uL (130-400); Red Blood Cell Count 3.75 10^6/uL (4.70-6.10); Red Cell Dist. Width 12.5 % (11.5-14.5); White Blood Cell Count 10.2 10^3/uL (4.8-10.8)
[2024-02-13] MEDS: NSS 1000 IV (07:44)
[2024-02-13 07:59] LABS: Vancomycin Random 12.7 ug/ml
[2024-02-13 08:16] LABS: Blood Urea Nitrogen 26 mg/dl (9-20); Calcium 9.7 mg/dl (8.4-10.2); Carbon Dioxide 17 mmol/L (22-30); Chloride 109 mmol/L (98-107); Estimated Creatinine Clearance 39 ml/min; Glucose 166 mg/dl (70-99); Sodium 137 mmol/L (135-145); eGFR 42.57
[2024-02-13] MEDS: LOW STRENGTH ASPIRIN 81 MG PO (08:17)
[2024-02-13] MEDS: JARDIANCE 10 MG PO (08:17)
[2024-02-13] MEDS: LOPRESSOR 25 MG PO ×2 (08:17→20:23)
[2024-02-13] MEDS: THERAGRAN 1 TABLET PO (08:18)
[2024-02-13 08:24] LABS: Potassium 4.5 mmol/L (3.5-5.1)
[2024-02-13] MEDS: PRED FORTE 1% EYE DROPS 1 DROP LEFT EYE ×2 (08:30→20:28)
[2024-02-13] MEDS: PRED FORTE 1% EYE DROPS 1 DROP RIGHT EYE ×2 (08:30→20:23)
[2024-02-13] MEDS: NOVOLOG FLEXPEN-LOW RESISTANCE SC (08:35)
--- NOTE | 2024-02-13 10:21 | PHA.VAN.FU ---
Vancomycin Assessment / Plan
- Assessment
Renal Function: SCR Decreasing (1.9->1.8->1.7)
WBC's are: WNL
In the past 24 hrs, patient has been: Afebrile
Concomitant Antimicrobials: pip/tazo
- Assessment - Therapeutic Drug Monitoring
Random Level: 12.7 ~ 19 hours post 1000 mg dose
- Dosing Plan
Continue: dose by random level for now
Dosing by Level: Re-dose today (1000 mg x 1)
based on current CrCl - 1000 mg q24h predicts an AUC 488: trough = 12.9; half-life of 18.8 hours. Will continue dose by level for now
- Monitoring Plan
Random Level: 02/13 600
- Follow Up
Pharmacy will continue to follow.
Vancomycin Follow UP
- -
Patient Age: 73
Patient Sex: Male
Vancomycin Day #: 4
Indication: Diabetic Foot
Requesting Provider: Dr. Post
Pertinent Antimicrobial Allergies:
no pertinent antibiotic allergies
Height / Weight:
Height 5 ft 8 in
Actual Weight 81.148 kg
Pertinent Past Medical History: DM 2, CKD (baseline SCR 1.3)
- Vital Signs / Lab Results
Temp Pulse Resp BP Pulse Ox
98.6 F 72 17 160/68 98
02/13/24 07:00 02/13/24 07:00 02/13/24 07:00 02/13/24 07:00 02/13/24 07:00
Lab Results - Hematology
02/10/24 02/11/24 02/12/24
14:31 06:39 06:37
WBC 13.6 H 10.6 10.7
02/13/24
06:59
WBC 10.2
Lab Results - Chemistry
02/10/24 02/11/24 02/12/24
14:31 06:39 06:37
BUN 31 H 31 H 29 H
Creatinine 1.6 H 1.9 H 1.8 H
Estimated Creat Clear 41 35 36
Albumin 3.2 L 2.8 L
02/13/24
06:59
BUN 26 H
Creatinine 1.7 H
Estimated Creat Clear 39
Albumin
02/10/24 02/10/24
14:31 18:30
Lactic Acid 0.8 Cancelled
Microbiology Results
02/10/24 14:31 Blood Culture - Preliminary
Blood/Venous No Growth in 48 hours- Final report to follow
02/10/24 14:31 Blood Culture - Preliminary
Blood/Venous No Growth in 48 hours- Final report to follow
02/10/24 16:01 Wound Culture - Final
Foot - Right Pseudomonas aeruginosa
Escherichia coli
Gram negative bacilli
Enterococcus species
Coagulase neg. staphylococcus
Streptococcus species
Gram Stain - Final
02/10/24 18:16 MRSA Screen - Final
Nose No Methicillin Resistant Staphylococcus aureus isolated.
Therapeutic Drug Monitoring
Random Vancomycin 12.7 ug/ml 02/13/24 06:59
--- NOTE | 2024-02-13 11:26 | W.PN.HOSP.TC ---
Today's Communication/Plan
-
see A/P
Assessment / Plan
Assessment / Plan
73-year-old male past medical history of diabetes, CAD with stents, prior CABG, hypertension, hyperlipidemia, presented to the ER from games dealer office due to persistent diabetic right foot infection. Patient was recently admitted to from 01/08 to
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 He had gradual improvement following
discharge but then had acute worsening 2 days AIRLINE RESERVATIONIST.
He states that the wound on the sole of the right foot seems unchanged but noticed that there was worsening redness and swelling surrounding the wound on the medial aspect of the right great toe where he previously had a callus. He has significant
pain of his right foot. He saw games dealer who sent him to the emergency room.
He does consume 1 drink of alcohol every few days. He denies smoking.
A/P:
# Diabetic foot infection of right medial aspect with surrounding cellulitis and acute OM of the first proximal and distal phalanges
# Stable diabetic foot ulcer on plantar surface of foot
Foot x-ray does not show any evidence of osteomyelitis
However, MRI noted acute OM of the first proximal and distal phalanges, and the heads of the first and second metatarsals. Also noted mild first digit flexor tenosynovitis, likely infectious. Soft tissue wounds of the plantar medial forefoot with
contiguous rim-enhancing abscess wrapping around the plantar aspect of the first metatarsophalangeal joint. Severe diabetic myopathy.
wound culture with microorganism
blood cultures negative
Cont Vancomycin, Zosyn
s/p right partial first Ray amputation with bone biopsy of the second metatarsal bone by games dealer 02/12
Vascular/ID on board
wound care on board
Pain control with Dilaudid
# MARTINEZ on CKD likely secondary to recovering ATN versus prerenal
Baseline creatinine 1.3, SCr at 1.6 on admission, today at 1.7
Hold AIRLINE RESERVATIONIST losartan
Cont IV fluids
Monitor SCr and if worsening, consider renal CS
# Type 2 diabetes
Hold glipizide
Continue Jardiance
Insulin sliding scale
# Essential hypertension
Continue metoprolol
# Coronary artery disease with history of stents, CABG
Continue aspirin, statin
Plavix on hold preop
# Hyperlipidemia
Continue statin
Full code
DVT prophylaxis�SCDs
Diabetic diet
Anticipated Discharge: > 48 hours
Subjective/Interval History
-
Date of Service: February 13, 2024
Objective Data
-
Labs:
Laboratory Results
02/13/24
06:59
WBC 10.2
Hgb 10.3 L
Hct 32.6 L
Plt Count 222
Sodium 137
Potassium 4.5
Chloride 109 H
Carbon Dioxide 17 L
BUN 26 H
Creatinine 1.7 H
Glucose 166 H
Calcium 9.7
Vital Signs:
Vital Signs
Temp Pulse Resp BP Pulse Ox
37.0 C 72 17 160/68 98
02/13/24 07:00 02/13/24 07:00 02/13/24 07:00 02/13/24 07:00 02/13/24 07:00
I&O
02/12/24 02/13/24 02/14/24
06:59 06:59 06:59
Intake Total 1900 / 1900 900 / 900
Balance 1900 / 1900 900 / 900
Review of Systems
-
All other systems: Reviewed and negative
Physical Exam
-
General: Well Developed, Well Nourished, No Apparent Distress, Comfortable and Conversant
HEENT: Normocephalic
Respiratory: Clear to Auscultation and Non Labored Respirations; Negative Accessory Resp Muscle Use
Cardiac: Regular Rhythm and S1/S2
GI: Soft
Skin: Warm and Other (R foot in wound dressing )
Neuro: Awake and Alert
Psych: Calm and Intact Judgement/Insight
Data Reviewed
-
Diagnostic Radiology: Report Reviewed by me
MRI: Report Reviewed by me
Labs: Labs Reviewed by me
--- NOTE | 2024-02-13 12:20 | W.PN.UPDATE ---
Update Note
Progress Note Update
Mr. Galloway under went right partial first ray amputation. Bone culture was sent. Proximal margin was taken as well as a second metatarsal bone biopsy. He tolerated the procedure well. continue IV Vanco/Zosyn per ID and await bone culture and
pathology.
Heel Weightbearing in orthowedge shoe with rolling walker. Elevate leg at rest.
[2024-02-13 12:22] LABS: Glucose - Point of Care 163 mg/dl (70-99)
[2024-02-13] MEDS: NOVOLOG FLEXPEN-LOW RESISTANCE 1 UNITS SC (13:58)
[2024-02-13] MEDS: VANCOCIN 200 IV (14:25)
[2024-02-13] MEDS: NOVOLOG FLEXPEN-LOW RESISTANCE 2 UNITS SC (17:00)
[2024-02-13 17:01] LABS: Glucose - Point of Care 215 mg/dl (70-99)
[2024-02-13] MEDS: LIPITOR 40 MG PO (17:02)
[2024-02-13] MEDS: TYLENOL 650 MG PO (17:39)
[2024-02-13] MEDS: DILAUDID 0.25 MG IV ×2 (18:12→22:17)
[2024-02-13 22:11] LABS: Glucose - Point of Care 253 mg/dl (70-99)
[2024-02-14] VITALS (7 sets, daily range): BP systolic 131–171; BP diastolic 63–82; PULSE 61; O2SAT 95–97
--- NOTE | 2024-02-14 02:00 | PTCARENOTE ---
Pt's surgical dressing came completely off. Pt rang his call george to report. Surgical dressing bloody and no longer on pt's foot. Right foot on top of pillow. Cleaned with normal saline, kerlix dressing & jo applied.
[2024-02-14] MEDS: ZOSYN 50 IV ×4 (03:34→21:36)
[2024-02-14] MEDS: DILAUDID 0.25 MG IV (03:44)
[2024-02-14] MEDS: TYLENOL 650 MG PO ×2 (04:19→10:20)
[2024-02-14 05:20] LABS: Hematocrit 30.6 % (39.0-52.0); Hemoglobin 9.7 g/dL (13.0-18.0); Mean Corp Hgb Conc. 31.7 g/dL (33.0-37.0); Mean Corpuscular Hgb 27.5 pg (27.0-31.0); Mean Corpuscular Volume 86.7 fL (80.0-94.0); Mean Platelet Volume 11.2 fL (7.4-10.4); Platelet Count 213 10^3/uL (130-400); Red Blood Cell Count 3.53 10^6/uL (4.70-6.10); Red Cell Dist. Width 12.3 % (11.5-14.5); White Blood Cell Count 9.2 10^3/uL (4.8-10.8)
[2024-02-14 05:40] LABS: Vancomycin Random 13.9 ug/ml
[2024-02-14 05:48] LABS: Blood Urea Nitrogen 33 mg/dl (9-20); Calcium 9.1 mg/dl (8.4-10.2); Carbon Dioxide 18 mmol/L (22-30); Chloride 107 mmol/L (98-107); Estimated Creatinine Clearance 39 ml/min; Glucose 223 mg/dl (70-99); Potassium 4.8 mmol/L (3.5-5.1); Sodium 135 mmol/L (135-145); eGFR 42.57
--- NOTE | 2024-02-14 07:35 | PHA.VAN.FU ---
Vancomycin Assessment / Plan
- Assessment
Renal Function: Stable
WBC's are: WNL
In the past 24 hrs, patient has been: Afebrile
Concomitant Antimicrobials: pip/tazo
- Assessment - Therapeutic Drug Monitoring
Random Level: 13.9 ~ 14 h post 1000 mg dose
- Dosing Plan
Continue: dose by random level for now
Dosing by Level: Re-dose today (1000 mg x 1)
based on current CrCl -- 1000 mg q24h predicts an AUC 488; trough=12.9; half-life of 18.8 hours. Will continue dose by level for now
- Monitoring Plan
Random Level: ordered for 02/15/24 06
- Follow Up
Pharmacy will continue to follow.
Vancomycin Follow UP
- -
Patient Age: 73
Patient Sex: Male
Vancomycin Day #: 5
Indication: Diabetic Foot
Requesting Provider: Dr. Post
Pertinent Antimicrobial Allergies:
no pertinent antibiotic allergies
Height / Weight:
Height 5 ft 8 in
Actual Weight 81.148 kg
Pertinent Past Medical History: DM 2, CKD (baseline SCR 1.3)
- Vital Signs / Lab Results
Temp Pulse Resp BP Pulse Ox
98.6 F 91 18 150/70 96
02/14/24 03:12 02/14/24 03:12 02/14/24 03:12 02/14/24 03:12 02/14/24 03:12
Lab Results - Hematology
02/11/24 02/12/24 02/13/24
06:39 06:37 06:59
WBC 10.6 10.7 10.2
02/14/24
04:35
WBC 9.2
Lab Results - Chemistry
02/11/24 02/12/24 02/13/24
06:39 06:37 06:59
BUN 31 H 29 H 26 H
Creatinine 1.9 H 1.8 H 1.7 H
Estimated Creat Clear 35 36 39
Albumin 2.8 L
02/14/24
04:35
BUN 33 H
Creatinine 1.7 H
Estimated Creat Clear 39
Albumin
Microbiology Results
02/10/24 14:31 Blood Culture - Preliminary
Blood/Venous No Growth in 72 hours- Final report to follow
02/10/24 14:31 Blood Culture - Preliminary
Blood/Venous No Growth in 72 hours- Final report to follow
02/10/24 16:01 Wound Culture - Final
Foot - Right Pseudomonas aeruginosa
Escherichia coli
Gram negative bacilli
Enterococcus species
Coagulase neg. staphylococcus
Streptococcus species
Gram Stain - Final
02/10/24 18:16 MRSA Screen - Final
Nose No Methicillin Resistant Staphylococcus aureus isolated.
Therapeutic Drug Monitoring
Random Vancomycin 13.9 ug/ml 02/14/24 04:35
--- NOTE | 2024-02-14 08:08 | W.PN.POD ---
Today's Communication
Today's Communication
S/P right partial first ray amputation with second metatarsal bone biopsy
Assessment / Plan
-
S/P Right partial first ray amputation with 2nd metatarsal bone biopsy
Type 2 diabetes mellitus
1. He is evaluated at bedside and bandages are changed. One suture is removed dorsally. Both open areas dorsally and plantarly are flushed with saline. The sites are packed with 1/2' plain packing. Site covered with 4x4, Abd, kerlex and jo
wraps.
2. Await cultures and bone pathology (2nd met and proximal first metatarsal clean margin)- continue vanco/zosyn - ID following
3. May heel weightbearing in orthowedge shoe with rolling walker for assistance
4. Elevate surgical site at rest
5. Pain managed per mediciane - hydromorphone prn
Subjective
Chief Complaint
S/P right partial first ray amputation with 2nd metatarsal bone biopsy
Subjective
He is resting comfortably. Relates some increased pain last night but is now comfortable.
Objective
Temp Pulse Resp BP Pulse Ox
98.2 F 71 16 171/82 97
02/14/24 07:56 02/14/24 07:56 02/14/24 07:56 02/14/24 07:56 02/14/24 07:56
02/14/24 04:35
02/14/24 04:35
Vital Signs and Lab results were reviewed.
Physical Exam
Physical Exam
Right foot with bandages loose and falling off. Bloody strikethrough on the bandages. Pulses are palpable and the foot feels well perfused. The incision is approximated with retention sutures. There is packing present plantarly. There is some
meron -incision erythema that blanches with compression. Bloody drainage expressed along the incision with compression.
[2024-02-14 08:18] LABS: Glucose - Point of Care 232 mg/dl (70-99)
[2024-02-14] MEDS: THERAGRAN 1 TABLET PO (08:19)
[2024-02-14] MEDS: LOW STRENGTH ASPIRIN 81 MG PO (08:19)
[2024-02-14] MEDS: JARDIANCE 10 MG PO (08:20)
[2024-02-14] MEDS: LOPRESSOR 25 MG PO ×2 (08:20→20:53)
[2024-02-14] MEDS: PRED FORTE 1% EYE DROPS 1 DROP LEFT EYE ×2 (08:20→20:53)
[2024-02-14] MEDS: NOVOLOG FLEXPEN-LOW RESISTANCE 2 UNITS SC (08:24)
[2024-02-14] MEDS: VANCOCIN 200 IV (08:31)
[2024-02-14] MEDS: DILAUDID 0.5 MG IV ×2 (10:26→22:42)
[2024-02-14 11:51] LABS: Glucose - Point of Care 302 mg/dl (70-99)
[2024-02-14] MEDS: NOVOLOG FLEXPEN-LOW RESISTANCE 4 UNITS SC ×2 (11:57→17:12)
--- NOTE | 2024-02-14 12:13 | W.PN.ID1 ---
Date of Service
Date of Service: February 14, 2024
Today's Communication
continue current antibiotics follow bone cultures
Assessment / Plan
Right foot osteomyelitis
Leukocytosis
Elevated ESR
Elevated CRP
Diabetes mellitus (uncontrolled; HbA1c = 8.3)
CAD
Dyslipidemia
Recommendations:
Wound cultures polymicrobial, likely reflecting the superficial microbiology of the wound.
OR cultures / in progress no growth to date
Prior wound cultures from 01/09/2024 reviewed and revealed the presence of E. coli, Klebsiella and MSSA.
Continue with current antibiotics.
Follow vanco levels closely.
predicted AUC 488 at goal
pharmacy dosing by level
s/p Right partial first ray amputation with 2nd metatarsal bone biopsy
Monitor WBC and temp curve.
Glucose control.
Chief Complaint
-: Other (foot osteo)
Subjective / Review of Systems
afebrile
bp stable
no leukocytosis, cr stable,
blood cultures no growth
Vital Signs / Physical Exam
Vital Signs
Vital Signs
Temp Pulse Resp BP Pulse Ox
98.2 F 71 16 171/82 97
02/14/24 07:56 02/14/24 08:20 02/14/24 07:56 02/14/24 08:20 02/14/24 07:56
Physical Exam
Constitutional: No Acute Distress
Cardiovascular: Regular Rate and S1/S2; Negative Murmur or Rub
Pulmonary: Clear and Symmetric; Negative Wheezes or Rales
Gastrointestinal: Soft, Non Tender, Non Distended and Normal Bowel Sounds
Skin: Warm and Dry; Negative Rash or Jaundice
Wound: Other (dressing clean, dry, intact)
Objective Data
Lab Data
Lab Results
02/14/24 04:35
02/14/24 04:35
ESR 64 mm/hour (0-20) H 02/10/24 14:31
Estimated Creat Clear 39 ml/min 02/14/24 04:35
Lactic Acid Cancelled 02/10/24 18:30
Total Bilirubin 0.3 mg/dl (0.2-1.3) 02/11/24 06:39
AST 15 U/L (17-59) L 02/11/24 06:39
ALT 22 U/L (0-50) 02/11/24 06:39
Alkaline Phosphatase 101 U/L (38-126) 02/11/24 06:39
C-Reactive Protein 73.40 mg/L (0.0-10.00) H 02/10/24 14:31
Most recent labs reviewed.
Micro Results:
02/13/24 11:30 Anaerobic Culture - Preliminary
Bone Culture pending. Anaerobic cultures are examined after 3
days incubation. Additional information to follow.
02/13/24 11:30 Wound Culture - Preliminary
Bone Gram Stain - Preliminary
02/10/24 14:31 Blood Culture - Preliminary
Blood/Venous No Growth in 72 hours- Final report to follow
02/10/24 14:31 Blood Culture - Preliminary
Blood/Venous No Growth in 72 hours- Final report to follow
02/10/24 16:01 Wound Culture - Final
Foot - Right Pseudomonas aeruginosa
Escherichia coli
Gram negative bacilli
Enterococcus species
Coagulase neg. staphylococcus
Streptococcus species
Gram Stain - Final
02/10/24 18:16 MRSA Screen - Final
Nose No Methicillin Resistant Staphylococcus aureus isolated.
Imaging:
02/11/2024 MRI right lower extremity: Acute osteomyelitis of the first proximal and distal phalanges, along with the head of the first and second metatarsals. Mild first digit flexor tenosynovitis. Soft tissue wound to the plantar medial forefoot
with contiguous rim-enhancing abscess appreciated. Severe diabetic myopathy noted.
02/10/2024 X-ray right foot: No findings to suggest focal cortical bony destructive process. No radiopaque soft tissue foreign bodies noted. Soft tissue ulceration of the skin along the plantar region distally on the lateral view. Please see full
dictation for additional detail.
--- NOTE | 2024-02-14 13:58 | W.PN.HOSP.TC ---
Today's Communication/Plan
-
see A/P
Assessment / Plan
Assessment / Plan
73-year-old male past medical history of diabetes, CAD with stents, prior CABG, hypertension, hyperlipidemia, presented to the ER from mailroom associate office due to persistent diabetic right foot infection. Patient was recently admitted to from 01/08 to
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 He had gradual improvement following
discharge but then had acute worsening 2 days FUSE MAKER.
He states that the wound on the sole of the right foot seems unchanged but noticed that there was worsening redness and swelling surrounding the wound on the medial aspect of the right great toe where he previously had a callus. He has significant
pain of his right foot. He saw mailroom associate who sent him to the emergency room.
He does consume 1 drink of alcohol every few days. He denies smoking.
A/P:
# Diabetic foot infection of right medial aspect with surrounding cellulitis and acute OM of the first proximal and distal phalanges
# Stable diabetic foot ulcer on plantar surface of foot
Foot x-ray does not show any evidence of osteomyelitis
However, MRI noted acute OM of the first proximal and distal phalanges, and the heads of the first and second metatarsals. Also noted mild first digit flexor tenosynovitis, likely infectious. Soft tissue wounds of the plantar medial forefoot with
contiguous rim-enhancing abscess wrapping around the plantar aspect of the first metatarsophalangeal joint. Severe diabetic myopathy.
wound culture from admission with polymicroorganism
blood cultures negative
Cont Vancomycin, Zosyn per ID
s/p right partial first Ray amputation with bone biopsy of the second metatarsal bone by mailroom associate 02/12
Follow bone pathology for clean margin
Follow wound culture from OR 02/12
Pain control with Dilaudid
# now felt likely CKD 3
SCr at 1.6 on admission, today at 1.7
Hold FUSE MAKER losartan
Cont IV fluids
Monitor SCr and if worsening, consider renal CS
# Type 2 diabetes
Hold glipizide
Continue Jardiance
Insulin sliding scale
# Essential hypertension
Continue metoprolol
# Coronary artery disease with history of stents, CABG
Continue aspirin, statin
Plavix on hold preop
# Hyperlipidemia
Continue statin
Full code
DVT prophylaxis�SCDs
Diabetic diet
Anticipated Discharge: > 48 hours
Subjective/Interval History
-
Date of Service: February 14, 2024
Objective Data
-
Labs:
Laboratory Results
02/14/24
04:35
WBC 9.2
Hgb 9.7 L
Hct 30.6 L
Plt Count 213
Sodium 135
Potassium 4.8
Chloride 107
Carbon Dioxide 18 L
BUN 33 H
Creatinine 1.7 H
Glucose 223 H
Calcium 9.1
Vital Signs:
Vital Signs
Temp Pulse Resp BP Pulse Ox
36.7 C 61 16 152/66 97
02/14/24 11:15 02/14/24 11:15 02/14/24 11:15 02/14/24 11:15 02/14/24 11:15
I&O
02/13/24 02/14/24 02/15/24
06:59 06:59 06:59
Intake Total 900 / 900 630 / 630
Output Total 1155 / 1155
Balance 900 / 900 -525 / -525
Review of Systems
-
All other systems: Reviewed and negative
Physical Exam
-
General: Well Developed, Well Nourished, No Apparent Distress, Comfortable and Conversant
HEENT: Normocephalic
Respiratory: Clear to Auscultation and Non Labored Respirations; Negative Accessory Resp Muscle Use
Cardiac: Regular Rhythm and S1/S2
GI: Soft
Skin: Warm and Other (R foot in wound dressing )
Neuro: Awake and Alert
Psych: Calm and Intact Judgement/Insight
Data Reviewed
-
Diagnostic Radiology: Report Reviewed by me
MRI: Report Reviewed by me
Labs: Labs Reviewed by me
[2024-02-14] MEDS: LIPITOR 80 MG PO (16:48)
[2024-02-14 17:15] LABS: Glucose - Point of Care 316 mg/dl (70-99)
[2024-02-14 21:38] LABS: Glucose - Point of Care 237 mg/dl (70-99)
[2024-02-15] MEDS: ZOSYN 50 IV ×4 (03:30→21:52)
[2024-02-15 05:07] LABS: Hematocrit 30.1 % (39.0-52.0); Hemoglobin 9.7 g/dL (13.0-18.0); Mean Corp Hgb Conc. 32.2 g/dL (33.0-37.0); Mean Corpuscular Hgb 27.6 pg (27.0-31.0); Mean Corpuscular Volume 85.8 fL (80.0-94.0); Platelet Count 221 10^3/uL (130-400); Red Blood Cell Count 3.51 10^6/uL (4.70-6.10); Red Cell Dist. Width 12.5 % (11.5-14.5); White Blood Cell Count 7.5 10^3/uL (4.8-10.8)
[2024-02-15 05:29] LABS: Blood Urea Nitrogen 32 mg/dl (9-20); Calcium 9.2 mg/dl (8.4-10.2); Carbon Dioxide 22 mmol/L (22-30); Chloride 107 mmol/L (98-107); Estimated Creatinine Clearance 36 ml/min; Glucose 211 mg/dl (70-99); Potassium 4.6 mmol/L (3.5-5.1); Sodium 135 mmol/L (135-145); eGFR 39.75
[2024-02-15 06:41] LABS: Glucose - Point of Care 233 mg/dl (70-99)
[2024-02-15 07:25] VITALS: BP 143/72
[2024-02-15] MEDS: NOVOLOG FLEXPEN-LOW RESISTANCE 2 UNITS SC (07:29)
[2024-02-15] MEDS: JARDIANCE 10 MG PO (07:30)
[2024-02-15] MEDS: LOPRESSOR 25 MG PO ×2 (07:30→20:04)
[2024-02-15] MEDS: THERAGRAN 1 TABLET PO (07:32)
[2024-02-15] MEDS: LOW STRENGTH ASPIRIN 81 MG PO (07:32)
[2024-02-15] MEDS: PRED FORTE 1% EYE DROPS 1 DROP LEFT EYE ×2 (07:32→20:04)
[2024-02-15] MEDS: PRED FORTE 1% EYE DROPS 1 DROP RIGHT EYE (07:32)
--- NOTE | 2024-02-15 07:54 | PHA.VAN.FU ---
Vancomycin Assessment / Plan
- Assessment
Renal Function: Stable
WBC's are: WNL
In the past 24 hrs, patient has been: Afebrile
Concomitant Antimicrobials: Piperacillin/Tazobactam
- Assessment - Therapeutic Drug Monitoring
Random Level: 14 ~20hrs post 1000mg dose
- Dosing Plan
Dosing by Level: Re-dose today (750mg)
- Monitoring Plan
Random Level: 02/15 @0600
- Follow Up
Pharmacy will continue to follow.
Vancomycin Follow UP
- -
Patient Age: 73
Patient Sex: Male
Vancomycin Day #: 6
Indication: Diabetic Foot
Requesting Provider: Dr. Post
Pertinent Antimicrobial Allergies:
no pertinent antibiotic allergies
Height / Weight:
Height 5 ft 8 in
Actual Weight 81.148 kg
Pertinent Past Medical History: DM 2, CKD (baseline SCR 1.3)
- Vital Signs / Lab Results
Temp Pulse Resp BP Pulse Ox
99.3 F 93 16 143/72 97
02/15/24 07:25 02/15/24 07:30 02/15/24 07:25 02/15/24 07:30 02/15/24 07:25
Lab Results - Hematology
02/13/24 02/14/24 02/15/24
06:59 04:35 04:29
WBC 10.2 9.2 7.5
Lab Results - Chemistry
02/13/24 02/14/24 02/15/24
06:59 04:35 04:29
BUN 26 H 33 H 32 H
Creatinine 1.7 H 1.7 H 1.8 H
Estimated Creat Clear 39 39 36
Microbiology Results
02/10/24 14:31 Blood Culture - Preliminary
Blood/Venous No Growth in 4 days- Final report to follow
02/10/24 14:31 Blood Culture - Preliminary
Blood/Venous No Growth in 4 days- Final report to follow
02/13/24 11:30 Anaerobic Culture - Preliminary
Bone Culture pending. Anaerobic cultures are examined after 3
days incubation. Additional information to follow.
02/13/24 11:30 Wound Culture - Preliminary
Bone Gram Stain - Preliminary
Therapeutic Drug Monitoring
Random Vancomycin 14.0 ug/ml 02/15/24 04:29
[2024-02-15] MEDS: VANCOCIN 150 IV (10:09)
--- NOTE | 2024-02-15 11:50 | VATNOTE ---
called to assess left arm vancomyvcin infiltrate by PCNToña. Arm already on pillow and PCN had applied ice bag. Area measured 23 cm long and 11cm wide. Hylenex ordered by hospitalist. Requested 10 syringe dose. Pt denies pain for this VAT RN.
States 'if anything, it itches where needle went in.' VAT to follow. Will apply heat after injections given.
--- NOTE | 2024-02-15 11:55 | W.PN.ID1 ---
Addendum entered and electronically signed by Lanre Thomas, 02/15/24 14:29:
Correction: continue with zosyn (patient not on cefepime)
Original Note:
Date of Service
Date of Service: February 15, 2024
Today's Communication
Continue antibiotics. See below�
Assessment / Plan
Right foot osteomyelitis
- s/p right hallux amp and partial 1st met resection
Leukocytosis
Elevated ESR
Elevated CRP
Diabetes mellitus (uncontrolled; HbA1c = 8.3)
CAD
Dyslipidemia
Recommendations:
OR cultures / with Pseudomonas and Streptococcus spp.
Continue with cefepime. Discontinue further vancomycin.
Await final culture results.
Await pathology.
Follow vanco levels closely.
pharmacy dosing by level
Monitor WBC and temp curve.
Glucose control.
����������������������������������������������������������
Chief Complaint
-: Other (right foot osteo)
Subjective / Review of Systems
Review of Systems: No Fever and No Chills
Vital Signs / Physical Exam
Vital Signs
Vital Signs
Temp Pulse Resp BP Pulse Ox
99.3 F 93 16 143/72 97
02/15/24 07:25 02/15/24 07:30 02/15/24 07:25 02/15/24 07:30 02/15/24 07:25
Physical Exam
Constitutional: No Acute Distress, Comfortable and Non-toxic
Eyes: Sclera Anicteric
Cardiovascular: S1/S2; Negative S3/S4
Pulmonary: Non Labored
Gastrointestinal: Soft, Non Tender and Non Distended
Wound: Other (right foot dressed.)
Neurological: Awake and Alert
Psychological: Calm
Objective Data
Lab Data
Lab Results
02/15/24 04:29
02/15/24 04:29
ESR 64 mm/hour (0-20) H 02/10/24 14:31
Estimated Creat Clear 36 ml/min 02/15/24 04:29
Lactic Acid Cancelled 02/10/24 18:30
Total Bilirubin 0.3 mg/dl (0.2-1.3) 02/11/24 06:39
AST 15 U/L (17-59) L 02/11/24 06:39
ALT 22 U/L (0-50) 02/11/24 06:39
Alkaline Phosphatase 101 U/L (38-126) 02/11/24 06:39
C-Reactive Protein 73.40 mg/L (0.0-10.00) H 02/10/24 14:31
Most recent labs reviewed.
Micro Results:
02/13/24 11:30 Wound Culture - Preliminary
Bone (right foot) Streptococcus species
Pseudomonas aeruginosa
Gram Stain - Preliminary
02/10/24 14:31 Blood Culture - Preliminary
Blood/Venous No Growth in 4 days- Final report to follow
02/10/24 14:31 Blood Culture - Preliminary
Blood/Venous No Growth in 4 days- Final report to follow
02/13/24 11:30 Anaerobic Culture - Preliminary
Bone Culture pending. Anaerobic cultures are examined after 3
days incubation. Additional information to follow.
02/10/24 16:01 Wound Culture - Final
Foot - Right Pseudomonas aeruginosa
Escherichia coli
Gram negative bacilli
Enterococcus species
Coagulase neg. staphylococcus
Streptococcus species
Gram Stain - Final
02/10/24 18:16 MRSA Screen - Final
Nose No Methicillin Resistant Staphylococcus aureus isolated.

Imaging:
02/11/2024 MRI right lower extremity: Acute osteomyelitis of the first proximal and distal phalanges, along with the head of the first and second metatarsals. Mild first digit flexor tenosynovitis. Soft tissue wound to the plantar medial forefoot
with contiguous rim-enhancing abscess appreciated. Severe diabetic myopathy noted.
02/10/2024 X-ray right foot: No findings to suggest focal cortical bony destructive process. No radiopaque soft tissue foreign bodies noted. Soft tissue ulceration of the skin along the plantar region distally on the lateral view. Please see full
dictation for additional detail.

Pathology:
Pending :
Toe, NOS - RIGHT GREAT TOE
Bone, NOS - R CLEAN PROXIMAL BONE MARGIN
Bone, NOS - R 2ND METATARSAL BONE BIOPSY
[2024-02-15 12:07] LABS: Glucose - Point of Care 268 mg/dl (70-99)
[2024-02-15] MEDS: NOVOLOG FLEXPEN-LOW RESISTANCE 3 UNITS SC ×2 (12:17→17:40)
[2024-02-15] MEDS: HYLENEX 30 UNITS SC ×5 (12:27→12:33)
--- NOTE | 2024-02-15 12:34 | VATNOTE ---
pharmacy only able to dispense 5 syringes of Helenex. Given now. Will apply heat. Arm still elevated on 2 pillows. VAT to follow moreso today.
--- NOTE | 2024-02-15 13:28 | W.PN.HOSP.TC ---
Today's Communication/Plan
-
continue IV Abx per ID and follow path/cultures
Assessment / Plan
Assessment / Plan
73-year-old male past medical history of diabetes, CAD with stents, prior CABG, hypertension, hyperlipidemia, presented to the ER from cras office due to persistent diabetic right foot infection. Patient was recently admitted to from 01/08 to
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 He had gradual improvement following
discharge but then had acute worsening 2 days [employer] SOFTWARE [employer]INE[employer].
He states that the wound on the sole of the right foot seems unchanged but noticed that there was worsening redness and swelling surrounding the wound on the medial aspect of the right great toe where he previously had a callus. He has significant
pain of his right foot. He saw cras who sent him to the emergency room.
He does consume 1 drink of alcohol every few days. He denies smoking.
Assessment:
Diabetic foot infection of right medial aspect with surrounding cellulitis and acute OM of the first proximal and distal phalanges
Stable diabetic foot ulcer on plantar surface of foot
- MR: acute OM of the first proximal and distal phalanges, and the heads of the first and second metatarsals. Also noted mild first digit flexor tenosynovitis, likely infectious. Soft tissue wounds of the plantar medial forefoot with contiguous
rim-enhancing abscess wrapping around the plantar aspect of the first metatarsophalangeal joint. Severe diabetic myopathy.
- s/p right partial first Ray amputation with bone biopsy of the second metatarsal bone by Dr. Espinoza 02/12
- continue Zosyn and follow cultures, operative cultures and path. Initially growing strep/pseudomonas from OR culture
- pain control
Vancomycin infiltration into LUE
- s/p 5 doses Hyaluronidase
CKD stage 3b
- hold ARB
- monitor labs
Type 2 diabetes
- Hold glipizide
- continue Jardiance
- Insulin sliding scale
Essential hypertension
- continue metoprolol
Coronary artery disease with history of stents, CABG
- continue aspirin, statin
- Plavix on hold meron-op; resume when cleared by Podiatry
Hyperlipidemia
- continue statin
DVT ppx: SCDs
Code: Full
Anticipated Discharge: > 48 hours
Subjective/Interval History
-
Date of Service: February 15, 2024
Vanco infiltrated in his LUE - he received 5 doses of hyaluronidase
Objective Data
-
Labs:
Laboratory Results
02/15/24
04:29
WBC 7.5
Hgb 9.7 L
Hct 30.1 L
Plt Count 221
Sodium 135
Potassium 4.6
Chloride 107
Carbon Dioxide 22
BUN 32 H
Creatinine 1.8 H
Glucose 211 H
Calcium 9.2
Vital Signs:
Vital Signs
Temp Pulse Resp BP Pulse Ox
99.3 F 93 16 143/72 97
02/15/24 07:25 02/15/24 07:30 02/15/24 07:25 02/15/24 07:30 02/15/24 07:25
I&O
02/14/24 02/15/24 02/16/24
06:59 06:59 06:59
Intake Total 630 / 630 1890 / 1890
Output Total 1155 / 1155 2750 / 2750
Balance -525 / -525 -860 / -860
Physical Exam
-
General: No Apparent Distress
HEENT: Normocephalic and Atraumatic
Respiratory: Negative Wheezes
Cardiac: Regular Rhythm
GI: Soft
Genito-urinary: No Costovertebral Tender
Musculoskeletal: No Edema
Neuro: AO x 3
Psych: Calm
Data Reviewed
-
Total Time Spent with Patient (in minutes): 41
Labs: Labs Reviewed by me
--- NOTE | 2024-02-15 13:41 | W.PN.POD ---
Today's Communication
Today's Communication
S/P Right partial first ray amputation with second metatrsal bone biopsy
Assessment / Plan
-
S/P Right partial first ray amputation with 2nd metatarsal bone biopsy
Type 2 diabetes mellitus
1. He is evaluated at bedside and bandages are changed. One suture is removed dorsally. Both open areas dorsally and plantarly are flushed with saline. The sites are packed with less 1/2' plain packing today. Site covered with 4x4, Abd, kerlex
and jo wraps.
2. Await cultures and bone pathology (2nd met and proximal first metatarsal clean margin)- continue cefepime secondary to OR cultures- ID following
3. May heel weightbearing in orthowedge shoe with rolling walker for assistance
4. Elevate surgical site at rest
Subjective
Chief Complaint
S/P Right partial Hallux amputation
Subjective
Patient seen at bedside this morning resting comfortably.
Objective
Temp Pulse Resp BP Pulse Ox
99.3 F 93 16 143/72 97
02/15/24 07:25 02/15/24 07:30 02/15/24 07:25 02/15/24 07:30 02/15/24 07:25
02/15/24 04:29
02/15/24 04:29
Vital Signs and Lab results were reviewed.
Physical Exam
Physical Exam
Right foot with bandages in place. Less strikethrough on the inner bandages today. Sutures are in place approximating the edges of the incision. Two areas, one dorsal and one plantarly are packed - beginning to granulate in. Erythema mostly
resolved, edema decreasing. Some bloody drainage form open sites with compression, no signs of active infection.
--- NOTE | 2024-02-15 14:25 | PTCARENOTE ---
At around 1130, Patient reported mild pain in IV site. Upon assessment, left arm with edema and erythema around site extending to elbow. Infusion stopped immediately. Vancomycin had just finished infusing and was flushing with nss at the time. Arm
elevated and ice applied. VAT made aware as well as Dr. Domínguez. Hyaluronidase ordered. Pharmacy made RN aware that there is a shortage and they would only be dispensing 5/10 of the injections at that time. Dr. Domínguez made aware. Medication given by
She Decker from [facility]. Heat applied after administration of medication. Will continue to observe.
--- NOTE | 2024-02-15 15:11 | CM ---
POD # 2 Right partial first ray amputation with second metatarsal bone biopsy, osteo. Therapy recommendation for Home PT. Preference is [facility]. Referral to be sent to [facility] for VN and PT/OT.
[2024-02-15] MEDS: PLAVIX 75 MG PO (15:21)
[2024-02-15 15:30] VITALS: BP 149/83
[2024-02-15 17:31] LABS: Glucose - Point of Care 282 mg/dl (70-99)
[2024-02-15] MEDS: LIPITOR 80 MG PO (17:44)
[2024-02-15] MEDS: TYLENOL 650 MG PO (20:09)
[2024-02-15 21:40] LABS: Glucose - Point of Care 315 mg/dl (70-99)
[2024-02-15] MEDS: FLUSH (NSS) 2 FLUSH IV (21:53)
[2024-02-15] MEDS: NOVOLOG FLEXPEN 10 UNITS SC (22:23)
[2024-02-15 23:07] VITALS: BP 119/51
[2024-02-16 00:30] LABS: Glucose - Point of Care 216 mg/dl (70-99)
[2024-02-16] MEDS: ZOSYN 50 IV ×4 (04:18→21:09)
[2024-02-16] MEDS: FLUSH (NSS) 2 FLUSH IV (04:19)
[2024-02-16 05:42] LABS: % Basophils 0.5 % (0-2); % Eosinophils 5.6 % (0-6); % Immature Granulocytes 1.3 % (0-0.5); % Lymphocytes 16.1 % (20.5-51.1); % Monocytes 7.2 % (1.7-9.3); % Neutrophils 69.3 % (42.2-75.2); Absolute Eosinophils 0.4 10^3/uL (0-0.7); Absolute Immature Granulocytes 0.1 10^3/uL (0-0.05); Absolute Lymphocytes 1.2 10^3/uL (1.2-3.4); Absolute Monocytes 0.5 10^3/uL (0.1-0.6); Absolute Neutrophils 5.2 10^3/uL (1.4-6.5); Hematocrit 31.5 % (39.0-52.0); Mean Corp Hgb Conc. 31.7 g/dL (33.0-37.0); Mean Corpuscular Hgb 27.3 pg (27.0-31.0); Mean Corpuscular Volume 86.1 fL (80.0-94.0); Mean Platelet Volume 11.2 fL (7.4-10.4); Nucleated Red Blood Cells % 0 % (-); Platelet Count 255 10^3/uL (130-400); Red Blood Cell Count 3.66 10^6/uL (4.70-6.10); Red Cell Dist. Width 12.4 % (11.5-14.5); White Blood Cell Count 7.5 10^3/uL (4.8-10.8)
[2024-02-16 06:23] LABS: Blood Urea Nitrogen 33 mg/dl (9-20); Calcium 9.6 mg/dl (8.4-10.2); Carbon Dioxide 23 mmol/L (22-30); Chloride 107 mmol/L (98-107); Estimated Creatinine Clearance 36 ml/min; Glucose 203 mg/dl (70-99); Potassium 4.3 mmol/L (3.5-5.1); Sodium 137 mmol/L (135-145); eGFR 39.75
[2024-02-16 07:31] LABS: Glucose - Point of Care 214 mg/dl (70-99)
[2024-02-16 07:51] VITALS: BP 144/78
[2024-02-16] MEDS: THERAGRAN 1 TABLET PO (08:01)
[2024-02-16] MEDS: LOW STRENGTH ASPIRIN 81 MG PO (08:01)
[2024-02-16] MEDS: PLAVIX 75 MG PO (08:01)
[2024-02-16] MEDS: LOPRESSOR 25 MG PO ×2 (08:01→21:07)
[2024-02-16] MEDS: JARDIANCE 10 MG PO (08:02)
[2024-02-16] MEDS: PRED FORTE 1% EYE DROPS 1 DROP RIGHT EYE ×2 (08:02→21:08)
[2024-02-16] MEDS: PRED FORTE 1% EYE DROPS 1 DROP LEFT EYE ×2 (08:02→21:08)
[2024-02-16] MEDS: NOVOLOG FLEXPEN-LOW RESISTANCE 2 UNITS SC ×2 (08:10→12:26)
[2024-02-16] MEDS: TYLENOL 650 MG PO ×2 (09:08→22:09)
--- NOTE | 2024-02-16 10:17 | W.PN.HOSP.TC ---
Today's Communication/Plan
-
await final cultures/path
resume Glipizide and adjust down diabetic diet
Assessment / Plan
Assessment / Plan
73-year-old male past medical history of diabetes, CAD with stents, prior CABG, hypertension, hyperlipidemia, presented to the ER from loan auditor office due to persistent diabetic right foot infection. Patient was recently admitted to from 01/08 to
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 He had gradual improvement following
discharge but then had acute worsening 2 days PLY CUTTER.
He states that the wound on the sole of the right foot seems unchanged but noticed that there was worsening redness and swelling surrounding the wound on the medial aspect of the right great toe where he previously had a callus. He has significant
pain of his right foot. He saw loan auditor who sent him to the emergency room.
He does consume 1 drink of alcohol every few days. He denies smoking.
Assessment:
Diabetic foot infection of right medial aspect with surrounding cellulitis and acute OM of the first proximal and distal phalanges
Stable diabetic foot ulcer on plantar surface of foot
- MR: acute OM of the first proximal and distal phalanges, and the heads of the first and second metatarsals. Also noted mild first digit flexor tenosynovitis, likely infectious. Soft tissue wounds of the plantar medial forefoot with contiguous
rim-enhancing abscess wrapping around the plantar aspect of the first metatarsophalangeal joint. Severe diabetic myopathy.
- s/p right partial first Ray amputation with bone biopsy of the second metatarsal bone by Dr. Espinoza 02/12. Follow wound care orders.
- continue Zosyn and follow cultures, operative cultures and path. Initially growing strep/pseudomonas from OR culture
- pain control
Vancomycin infiltration into LUE
- s/p 5 doses Hyaluronidase
- clinically improved
CKD stage 3b
- monitor labs
Type 2 diabetes
- resume glipizide
- continue Jardiance
- Insulin sliding scale
Essential hypertension
- continue metoprolol/ARB
Coronary artery disease with history of stents, CABG
- continue aspirin, statin
- Plavix resumed (cleared by Podiatry)
Hyperlipidemia
- continue statin
DVT ppx: SCDs
Code: Full
Anticipated Discharge: 24 - 48 hours
Subjective/Interval History
-
Date of Service: February 16, 2024
denies any new complaints
desires his glipizide be resumed
Objective Data
-
Labs:
Laboratory Results
02/16/24
04:56
WBC 7.5
Hgb 10.0 L
Hct 31.5 L
Plt Count 255
Sodium 137
Potassium 4.3
Chloride 107
Carbon Dioxide 23
BUN 33 H
Creatinine 1.8 H
Glucose 203 H
Calcium 9.6
Vital Signs:
Vital Signs
Temp Pulse Resp BP Pulse Ox
98.6 F 73 16 144/78 95
02/16/24 07:51 02/16/24 07:51 02/16/24 07:51 02/16/24 07:51 02/16/24 07:51
I&O
02/15/24 02/16/24 02/17/24
06:59 06:59 06:59
Intake Total 1890 / 1890 380 / 380
Output Total 2750 / 2750 400 / 400
Balance -860 / -860 -20 / -20
Physical Exam
-
General: No Apparent Distress
HEENT: Normocephalic and Atraumatic
Respiratory: Negative Wheezes or Rales
Cardiac: Regular Rhythm and S1/S2
GI: Soft and Nontender
Musculoskeletal: No Edema
Neuro: AO x 3
Hematologic / Lymphatic: No Lymphadenopathy
Psych: Calm
Data Reviewed
-
Total Time Spent with Patient (in minutes): 41
Labs: Labs Reviewed by me
--- NOTE | 2024-02-16 10:40 | W.PN.POD ---
Today's Communication
Today's Communication
S/P Right partial first ray amputation with second metatrsal bone biopsy
Assessment / Plan
-
S/P Right partial first ray amputation with 2nd metatarsal bone biopsy -POD #3
Type 2 diabetes mellitus
1. He is evaluated at bedside and bandages are changed. Both open areas dorsally and plantarly are flushed with saline. The sites are covered with alginate dressings today. Site covered with 4x4, Abd, kerlex and jo wraps.
2. Await cultures and bone pathology (2nd met and proximal first metatarsal clean margin)- continue cefepime secondary to OR cultures- ID following
3. May heel weightbearing in orthowedge shoe with rolling walker for assistance
4. Elevate surgical site at rest
Subjective
Chief Complaint
S/P Right partail 1st ray amputation with second metatarsal bone biopsy
Subjective
Patient is awake, alert and oriented at bedside. No complaints of pain
Objective
Temp Pulse Resp BP Pulse Ox
98.6 F 73 16 144/78 95
02/16/24 07:51 02/16/24 07:51 02/16/24 07:51 02/16/24 07:51 02/16/24 07:51
02/16/24 04:56
02/16/24 04:56
Vital Signs and Lab results were reviewed.
Physical Exam
Physical Exam
Right foot bandage intact with small amount of bloody drainage internally on the dressings. No erythema, no edema. Sutures approximating the incision well. Two areas of packing dorsally and plantarly are granulating nicely. minimal bloody
drainage expressed with compression
[2024-02-16] MEDS: HYLENEX SC ×5 (11:10)
--- NOTE | 2024-02-16 11:18 | VATNOTE ---
Left arm reported vanco infiltrate swelling is gone and just slightly reddened, will continue to monitor
[2024-02-16 12:28] LABS: Glucose - Point of Care 212 mg/dl (70-99)
[2024-02-16 14:12] VITALS: BP 154/67
--- NOTE | 2024-02-16 14:21 | W.PN.ID1 ---
Date of Service
Date of Service: February 16, 2024
Today's Communication
Continue antibiotics
Assessment / Plan
Right foot osteomyelitis
- s/p right hallux amp and partial 1st met resection
Leukocytosis
Elevated ESR
Elevated CRP
Diabetes mellitus (uncontrolled; HbA1c = 8.3)
CAD
Dyslipidemia
Recommendations:
OR cultures 02/13/24 with Pseudomonas and [facility] Strep Group
Continue with zosyn.
Await final culture results.
Await pathology.
Monitor WBC and temp curve.
Glucose control.
����������������������������������������������������������
Chief Complaint
-: Other (right foot osteo)
Subjective / Review of Systems
Review of Systems: No Fever and No Chills
Vital Signs / Physical Exam
Vital Signs
Vital Signs
Temp Pulse Resp BP Pulse Ox
98.3 F 64 16 154/67 98
02/16/24 14:12 02/16/24 14:12 02/16/24 14:12 02/16/24 14:12 02/16/24 14:12
Physical Exam
Constitutional: No Acute Distress, Comfortable and Non-toxic
Eyes: Sclera Anicteric
Cardiovascular: S1/S2; Negative S3/S4
Pulmonary: Non Labored
Gastrointestinal: Soft and Non Distended
Wound: Other (right foot dressed. No erythema up foot.)
Neurological: Awake and Alert
Psychological: Calm
Objective Data
Lab Data
Lab Results
02/16/24 04:56
02/16/24 04:56
ESR 64 mm/hour (0-20) H 02/10/24 14:31
Estimated Creat Clear 36 ml/min 02/16/24 04:56
Lactic Acid Cancelled 02/10/24 18:30
Total Bilirubin 0.3 mg/dl (0.2-1.3) 02/11/24 06:39
AST 15 U/L (17-59) L 02/11/24 06:39
ALT 22 U/L (0-50) 02/11/24 06:39
Alkaline Phosphatase 101 U/L (38-126) 02/11/24 06:39
C-Reactive Protein 73.40 mg/L (0.0-10.00) H 02/10/24 14:31
Most recent labs reviewed.
Micro Results:
02/13/24 11:30 Anaerobic Culture - Preliminary
Bone Culture pending. Anaerobic cultures are examined after 3
days incubation. Additional information to follow.
02/13/24 11:30 Wound Culture - Preliminary
Bone Pseudomonas aeruginosa
[facility] Streptococcus Group
Gram Stain - Preliminary
02/10/24 14:31 Blood Culture - Final
Blood/Venous No Growth - Final Report
02/10/24 14:31 Blood Culture - Final
Blood/Venous No Growth - Final Report
02/10/24 16:01 Wound Culture - Final
Foot - Right Pseudomonas aeruginosa
Escherichia coli
Gram negative bacilli
Enterococcus species
Coagulase neg. staphylococcus
Streptococcus species
Gram Stain - Final
02/10/24 18:16 MRSA Screen - Final
Nose No Methicillin Resistant Staphylococcus aureus isolated.

Imaging:
02/11/2024 MRI right lower extremity: Acute osteomyelitis of the first proximal and distal phalanges, along with the head of the first and second metatarsals. Mild first digit flexor tenosynovitis. Soft tissue wound to the plantar medial forefoot
with contiguous rim-enhancing abscess appreciated. Severe diabetic myopathy noted.
02/10/2024 X-ray right foot: No findings to suggest focal cortical bony destructive process. No radiopaque soft tissue foreign bodies noted. Soft tissue ulceration of the skin along the plantar region distally on the lateral view. Please see full
dictation for additional detail.

Pathology:
Pending :
Toe, NOS - RIGHT GREAT TOE
Bone, NOS - R CLEAN PROXIMAL BONE MARGIN
Bone, NOS - R 2ND METATARSAL BONE BIOPSY
[2024-02-16 14:48] VITALS: BP 154/67
--- NOTE | 2024-02-16 15:00 | CM ---
Discharge Plan of Care: Home with [facility] VN and PT/OT services. Will continue to follow for possible IV/AB infusion services upon discharge.
[2024-02-16] MEDS: GLUCOTROL 5 MG PO (17:03)
[2024-02-16] MEDS: LIPITOR 80 MG PO (17:04)
[2024-02-16 17:47] LABS: Glucose - Point of Care 184 mg/dl (70-99)
[2024-02-16] MEDS: NOVOLOG FLEXPEN-LOW RESISTANCE 1 UNITS SC (18:44)
[2024-02-16 21:55] LABS: Glucose - Point of Care 151 mg/dl (70-99)
[2024-02-16 23:20] VITALS: BP 140/66
[2024-02-17] MEDS: ZOSYN 50 IV ×2 (04:25→09:49)
[2024-02-17] MEDS: DILAUDID 0.5 MG IV (04:27)
[2024-02-17 05:23] LABS: % Basophils 0.6 % (0-2); % Eosinophils 5.5 % (0-6); % Immature Granulocytes 1.2 % (0-0.5); % Lymphocytes 18.1 % (20.5-51.1); % Neutrophils 67.6 % (42.2-75.2); Absolute Basophils 0.1 10^3/uL (0-0.2); Absolute Eosinophils 0.5 10^3/uL (0-0.7); Absolute Immature Granulocytes 0.1 10^3/uL (0-0.05); Absolute Lymphocytes 1.5 10^3/uL (1.2-3.4); Absolute Monocytes 0.6 10^3/uL (0.1-0.6); Absolute Neutrophils 5.5 10^3/uL (1.4-6.5); Hematocrit 33.1 % (39.0-52.0); Hemoglobin 10.5 g/dL (13.0-18.0); Mean Corp Hgb Conc. 31.7 g/dL (33.0-37.0); Mean Corpuscular Hgb 27.1 pg (27.0-31.0); Mean Corpuscular Volume 85.5 fL (80.0-94.0); Mean Platelet Volume 10.8 fL (7.4-10.4); Nucleated Red Blood Cells % 0 % (-); Platelet Count 285 10^3/uL (130-400); Red Blood Cell Count 3.87 10^6/uL (4.70-6.10); Red Cell Dist. Width 12.5 % (11.5-14.5); White Blood Cell Count 8.1 10^3/uL (4.8-10.8)
[2024-02-17 05:45] LABS: Blood Urea Nitrogen 38 mg/dl (9-20); Calcium 9.6 mg/dl (8.4-10.2); Carbon Dioxide 22 mmol/L (22-30); Chloride 108 mmol/L (98-107); Estimated Creatinine Clearance 39 ml/min; Glucose 95 mg/dl (70-99); Potassium 4.2 mmol/L (3.5-5.1); Sodium 140 mmol/L (135-145); eGFR 42.57
[2024-02-17 07:10] VITALS: BP 132/73
[2024-02-17 07:36] LABS: Glucose - Point of Care 115 mg/dl (70-99)
[2024-02-17] MEDS: NOVOLOG FLEXPEN-LOW RESISTANCE SC ×3 (07:37→17:29)
[2024-02-17] MEDS: GLUCOTROL 5 MG PO ×2 (07:54→17:33)
[2024-02-17] MEDS: THERAGRAN 1 TABLET PO (07:54)
[2024-02-17] MEDS: LOW STRENGTH ASPIRIN 81 MG PO (07:54)
[2024-02-17] MEDS: PLAVIX 75 MG PO (07:54)
[2024-02-17] MEDS: LOPRESSOR 25 MG PO ×2 (07:55→20:04)
[2024-02-17] MEDS: COZAAR 25 MG PO (07:55)
[2024-02-17] MEDS: PRED FORTE 1% EYE DROPS 1 DROP LEFT EYE ×2 (07:58→20:05)
[2024-02-17] MEDS: JARDIANCE 10 MG PO (08:05)
--- NOTE | 2024-02-17 09:27 | W.PN.HOSP.TC ---
Today's Communication/Plan
-
await pathology results
continue IV abx
Assessment / Plan
Assessment / Plan
73-year-old male past medical history of diabetes, CAD with stents, prior CABG, hypertension, hyperlipidemia, presented to the ER from athletic monitor office due to persistent diabetic right foot infection. Patient was recently admitted to from 01/08 to
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 He had gradual improvement following
discharge but then had acute worsening 2 days TACK CUTTER.
He states that the wound on the sole of the right foot seems unchanged but noticed that there was worsening redness and swelling surrounding the wound on the medial aspect of the right great toe where he previously had a callus. He has significant
pain of his right foot. He saw athletic monitor who sent him to the emergency room.
He does consume 1 drink of alcohol every few days. He denies smoking.
Assessment:
Diabetic foot infection of right medial aspect with surrounding cellulitis and acute OM of the first proximal and distal phalanges
Stable diabetic foot ulcer on plantar surface of foot
- MR: acute OM of the first proximal and distal phalanges, and the heads of the first and second metatarsals. Also noted mild first digit flexor tenosynovitis, likely infectious. Soft tissue wounds of the plantar medial forefoot with contiguous
rim-enhancing abscess wrapping around the plantar aspect of the first metatarsophalangeal joint. Severe diabetic myopathy.
- s/p right partial first Ray amputation with bone biopsy of the second metatarsal bone by Dr. Espinoza 02/12. Follow wound care orders.
- continue Zosyn and follow cultures, operative cultures and path. Initially growing strep/pseudomonas from OR culture
- pain control
Vancomycin infiltration into LUE
- s/p 5 doses Hyaluronidase
- clinically improved
CKD stage 3b
- monitor labs
Type 2 diabetes
- resume glipizide/Jardiance
- Insulin sliding scale
Essential hypertension
- continue metoprolol/ARB
Coronary artery disease with history of stents, CABG
- continue aspirin, statin
- Plavix resumed (cleared by Podiatry)
Hyperlipidemia
- continue statin
DVT ppx: SCDs
Code: Full
Anticipated Discharge: 24 - 48 hours
Subjective/Interval History
-
Date of Service: February 17, 2024
happy with resumption of glipizide and improving glycemic control
no complaints
Objective Data
-
Labs:
Laboratory Results
02/17/24
04:44
WBC 8.1
Hgb 10.5 L
Hct 33.1 L
Plt Count 285
Sodium 140
Potassium 4.2
Chloride 108 H
Carbon Dioxide 22
BUN 38 H
Creatinine 1.7 H
Glucose 95
Calcium 9.6
Vital Signs:
Vital Signs
Temp Pulse Resp BP Pulse Ox
97.8 F 64 17 132/73 97
02/17/24 07:10 02/17/24 07:10 02/17/24 07:10 02/17/24 07:55 02/17/24 07:10
I&O
02/16/24 02/17/24 02/18/24
06:59 06:59 06:59
Intake Total 380 / 380 1490 / 1490
Output Total 400 / 400
Balance -20 / -20 1490 / 1490
Physical Exam
-
General: No Apparent Distress
HEENT: Normocephalic and Atraumatic
Respiratory: Negative Wheezes or Rales
Cardiac: Regular Rhythm and S1/S2
GI: Soft
Genito-urinary: No Costovertebral Tender
Musculoskeletal: No Edema
Neuro: AO x 3
Hematologic / Lymphatic: No Lymphadenopathy
Psych: Calm
Data Reviewed
-
Total Time Spent with Patient (in minutes): 42
Labs: Labs Reviewed by me
[2024-02-17 12:20] LABS: Glucose - Point of Care 122 mg/dl (70-99)
--- NOTE | 2024-02-17 12:50 | W.PN.ID1 ---
Date of Service
Date of Service: February 17, 2024
Today's Communication
Continue antibiotics.
Assessment / Plan
Right foot osteomyelitis
- s/p right hallux amp and partial 1st met resection
Leukocytosis
Elevated ESR
Elevated CRP
Diabetes mellitus (uncontrolled; HbA1c = 8.3)
CAD
Dyslipidemia
Recommendations:
OR cultures 02/13/24 with Pseudomonas and Viridans Strep Group
Pathology noted. Osteomyelitis appears to have been resected.
I remain concerned about the wound, though especially his current appearance.
--> Would recommend ongoing antibiotic therapy with cefepime 1 g IV every 8 hours (dosed for renal insufficiency) for an additional 2 weeks with close follow-up.
IV sheet placed on paper chart.
Glucose control.
����������������������������������������������������������
Chief Complaint
-: Other (right foot osteo)
Subjective / Review of Systems
Review of Systems: No Fever and No Chills
Vital Signs / Physical Exam
Vital Signs
Vital Signs
Temp Pulse Resp BP Pulse Ox
97.8 F 64 17 132/73 97
02/17/24 07:10 02/17/24 07:10 02/17/24 07:10 02/17/24 07:55 02/17/24 07:10
Physical Exam
Constitutional: No Acute Distress and Non-toxic
Eyes: Sclera Anicteric
Pulmonary: Non Labored
Extremities: Negative Edema or Erythema
Wound: Other (Right foot wound visualized. Sutures in place. Small area of scant drainage. No malodor. No periwound erythema.)
Neurological: Awake and Alert
Psychological: Calm
Objective Data
Lab Data
Lab Results
02/17/24 04:44
02/17/24 04:44
ESR 64 mm/hour (0-20) H 02/10/24 14:31
Estimated Creat Clear 39 ml/min 02/17/24 04:44
Lactic Acid Cancelled 02/10/24 18:30
Total Bilirubin 0.3 mg/dl (0.2-1.3) 02/11/24 06:39
AST 15 U/L (17-59) L 02/11/24 06:39
ALT 22 U/L (0-50) 02/11/24 06:39
Alkaline Phosphatase 101 U/L (38-126) 02/11/24 06:39
C-Reactive Protein 73.40 mg/L (0.0-10.00) H 02/10/24 14:31
Most recent labs reviewed.
Micro Results:
02/13/24 11:30 Anaerobic Culture - Preliminary
Bone Culture pending. Anaerobic cultures are examined after 3
days incubation. Additional information to follow.
02/13/24 11:30 Wound Culture - Preliminary
Bone Pseudomonas aeruginosa
Viridans Streptococcus Group
Gram Stain - Preliminary
02/10/24 14:31 Blood Culture - Final
Blood/Venous No Growth - Final Report
02/10/24 14:31 Blood Culture - Final
Blood/Venous No Growth - Final Report
02/10/24 16:01 Wound Culture - Final
Foot - Right Pseudomonas aeruginosa
Escherichia coli
Gram negative bacilli
Enterococcus species
Coagulase neg. staphylococcus
Streptococcus species
Gram Stain - Final
02/10/24 18:16 MRSA Screen - Final
Nose No Methicillin Resistant Staphylococcus aureus isolated.
Wound/abscess/other Cult Preliminary 02/16/24-49
Rare Presumptive Viridans Streptococcus Group
Pseudomonas aeruginosa Isolated from enrichment broth
only.
1. Pseudomonas aeruginosa
M.I.C. RX
--------- ---
Cefepime <=2 S
Ceftazidime <=1 S
Ciprofloxacin <=0.25 S
Gentamicin <=4 S
Levofloxacin <=0.5 S
Meropenem <=1 S
Piperacillin/Tazobactam <=16 S
Tobramycin <=4 S

Imaging:
02/11/2024 MRI right lower extremity: Acute osteomyelitis of the first proximal and distal phalanges, along with the head of the first and second metatarsals. Mild first digit flexor tenosynovitis. Soft tissue wound to the plantar medial forefoot
with contiguous rim-enhancing abscess appreciated. Severe diabetic myopathy noted.
02/10/2024 X-ray right foot: No findings to suggest focal cortical bony destructive process. No radiopaque soft tissue foreign bodies noted. Soft tissue ulceration of the skin along the plantar region distally on the lateral view. Please see full
dictation for additional detail.

Pathology:
A. Toe, right great toe, amputation:
- Acute osteomyelitis.
- Skin and subcutaneous tissue with acute necrotizing inflammation.
B. Bone, �right clean margin�, excision:
- Fragmented pieces of bone, negative for acute inflammation.
C. Bone, 2nd metatarsal, right, biopsy:
- Bone and cartillage with no significant pathological abnormalities
Care Review
Plan reviewed with: Physician (Hospitalist)
[2024-02-17 14:23] VITALS: BP 147/59; PULSE 64; O2SAT 98
[2024-02-17] MEDS: STERILE WATER FOR INJECTION 10 ML IV ×2 (15:00→21:13)
[2024-02-17] MEDS: MAXIPIME 1000 MG IV ×2 (15:00→21:13)
[2024-02-17 15:15] VITALS: BP 132/66
--- NOTE | 2024-02-17 15:45 | CM ---
Addendum entered by Alber Quevedo 02/17/24 16:03:
[facility] has accepted for VN services.
Original Note:
Patient for home infusion services. Awaiting prescription and midline placement. Will contact [facility] for infusion services. Will also need VN.
--- NOTE | 2024-02-17 16:56 | VATNOTE ---
Left arm reported infiltrate resolved.
[2024-02-17 17:18] LABS: Glucose - Point of Care 83 mg/dl (70-99)
--- NOTE | 2024-02-17 17:23 | W.PN.POD ---
Today's Communication
Today's Communication
S/P right partial first ray amputaion
Assessment / Plan
-
S/P Right partial first ray amputation with 2nd metatarsal bone biopsy -POD #4
Type 2 diabetes mellitus
1. He is evaluated at bedside and bandages are changed. Site covered with Calcium alginate, 4x4, kerlex and jo wraps.
2. Cultures reviewed - Pseudomonas and Viridans Strep Group and bone pathology -2nd met and proximal first metatarsal clean margin are negative for osteomyelitis. Discussed this with patient at great length.
3. Appreciate Id recommendation of 22 weeks IV cefipime 1 gram q 8 hours - PICC in place.
3. May heel weightbearing in orthowedge shoe with rolling walker for assistance - limit activity. Follow up with me on thursday int he office.
4. Elevate surgical site at rest
Subjective
Chief Complaint
S/P Right partial first Ray amputation with second metatarsal bone biopsy
Subjective
Patient seen at bedside resting comfortably, awake, alert and orientated
Objective
Temp Pulse Resp BP Pulse Ox
98.3 F 65 17 132/66 96
02/17/24 15:15 02/17/24 15:15 02/17/24 15:15 02/17/24 15:15 02/17/24 15:15
02/17/24 04:44
02/17/24 04:44
Vital Signs and Lab results were reviewed.
Physical Exam
Physical Exam
Bandages in place, minimal drainage on inner bandages. Sutures in place incision is well approximated. No active drainage from previous packing sites with compression. Resolved erythema and edema.
[2024-02-17] MEDS: LIPITOR 80 MG PO (17:33)
[2024-02-17 20:04] VITALS: BP 144/62
[2024-02-17 22:19] LABS: Glucose - Point of Care 101 mg/dl (70-99)
[2024-02-17 23:32] VITALS: BP 119/67
[2024-02-18] MEDS: DILAUDID 0.5 MG IV (00:23)
[2024-02-18] MEDS: STERILE WATER FOR INJECTION 10 ML IV ×3 (05:44→21:41)
[2024-02-18] MEDS: MAXIPIME 1000 MG IV ×3 (05:44→21:41)
[2024-02-18 07:15] VITALS: BP 138/71
[2024-02-18 07:27] LABS: Glucose - Point of Care 121 mg/dl (70-99)
--- NOTE | 2024-02-18 09:10 | W.PN.HOSP.TC ---
Today's Communication/Plan
-
CM following for home infusion setup with DC expected in 24 hours; patient aware/agreeable
Assessment / Plan
Assessment / Plan
73-year-old male past medical history of diabetes, CAD with stents, prior CABG, hypertension, hyperlipidemia, presented to the ER from [employer] office due to persistent diabetic right foot infection. Patient was recently admitted to from 01/08 to
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 He had gradual improvement following
discharge but then had acute worsening 2 days FAMILY PRACTICE DOCTOR.
He states that the wound on the sole of the right foot seems unchanged but noticed that there was worsening redness and swelling surrounding the wound on the medial aspect of the right great toe where he previously had a callus. He has significant
pain of his right foot. He saw farmworker machine who sent him to the emergency room.
He does consume 1 drink of alcohol every few days. He denies smoking.
Assessment:
Diabetic foot infection of right medial aspect with surrounding cellulitis and acute OM of the first proximal and distal phalanges
Stable diabetic foot ulcer on plantar surface of foot
- MR: acute OM of the first proximal and distal phalanges, and the heads of the first and second metatarsals. Also noted mild first digit flexor tenosynovitis, likely infectious. Soft tissue wounds of the plantar medial forefoot with contiguous
rim-enhancing abscess wrapping around the plantar aspect of the first metatarsophalangeal joint. Severe diabetic myopathy.
- s/p right partial first Ray amputation with bone biopsy of the second metatarsal bone by Dr. Espinoza 02/12. Follow wound care orders.
- Pseudomonas and Viridans strep in cultures. on Cefepime per ID for 2 weeks (Midline) placed. Home infusion setup in progress.
- pain control
Vancomycin infiltration into LUE
- s/p 5 doses Hyaluronidase
- clinically improved
CKD stage 3b
- monitor labs
Type 2 diabetes
- continue glipizide/Jardiance
- Insulin sliding scale
Essential hypertension
- continue metoprolol/ARB
Coronary artery disease with history of stents, CABG
- continue aspirin, statin, Plavix
Hyperlipidemia
- continue statin
DVT ppx: SCDs
Code: Full
Anticipated Discharge: Within 24 hours
Subjective/Interval History
-
Date of Service: February 18, 2024
no new complaints presently
Objective Data
-
Vital Signs:
Vital Signs
Temp Pulse Resp BP Pulse Ox
98.5 F 73 17 138/71 97
02/18/24 07:15 02/18/24 07:15 02/18/24 07:15 02/18/24 07:15 02/18/24 07:15
I&O
02/17/24 02/18/24 02/19/24
06:59 06:59 06:59
Intake Total 1490 / 1490 1560 / 1560
Balance 1490 / 1490 1560 / 1560
Physical Exam
-
General: No Apparent Distress
HEENT: Normocephalic and Atraumatic
Respiratory: Negative Wheezes
Cardiac: Regular Rhythm and S1/S2
GI: Soft
Musculoskeletal: No Edema
Neuro: AO x 3
Hematologic / Lymphatic: No Lymphadenopathy
Psych: Calm
Data Reviewed
-
Total Time Spent with Patient (in minutes): 41
Labs: Labs Reviewed by me
[2024-02-18] MEDS: GLUCOTROL 5 MG PO ×2 (09:28→17:10)
[2024-02-18] MEDS: COZAAR 25 MG PO (09:28)
[2024-02-18] MEDS: NOVOLOG FLEXPEN-LOW RESISTANCE SC ×3 (09:28→17:14)
[2024-02-18] MEDS: PLAVIX 75 MG PO (09:28)
[2024-02-18] MEDS: THERAGRAN 1 TABLET PO (09:29)
[2024-02-18] MEDS: LOW STRENGTH ASPIRIN 81 MG PO (09:29)
[2024-02-18] MEDS: LOPRESSOR 25 MG PO ×2 (09:29→20:19)
[2024-02-18] MEDS: JARDIANCE 10 MG PO (09:29)
[2024-02-18] MEDS: PRED FORTE 1% EYE DROPS 1 DROP LEFT EYE ×2 (09:30→20:19)
[2024-02-18] MEDS: PRED FORTE 1% EYE DROPS 1 DROP RIGHT EYE (09:31)
[2024-02-18 12:17] LABS: Glucose - Point of Care 131 mg/dl (70-99)
[2024-02-18] MEDS: FLUSH (NSS) 2 FLUSH IV (13:38)
--- NOTE | 2024-02-18 15:08 | CM ---
Anticipate discharge in AM on 02/19/24. [facility] will deliver medications and equipment on 02/19/24 between 1:00 -2:00 PM to home. Chayo GOMEZ will arrive at that time and educate and train patient and his on IV administration. , patient,
team aware.
--- NOTE | 2024-02-18 15:12 | PTOTSP ---
Patient would benefit from a prescription for a walker to be issued at discharge. Thank you.
[2024-02-18 15:15] VITALS: BP 126/56
--- NOTE | 2024-02-18 15:56 | W.PN.ID1 ---
Date of Service
Date of Service: February 18, 2024
Today's Communication
Continue antibiotics per
Assessment / Plan
Right foot osteomyelitis
- s/p right hallux amp and partial 1st met resection
Leukocytosis
Elevated ESR
Elevated CRP
Diabetes mellitus (uncontrolled; HbA1c = 8.3)
CAD
Dyslipidemia
Recommendations:
OR cultures 02/13/24 with Pseudomonas and Viridans Strep Group
Pathology noted. Osteomyelitis appears to have been resected.
I remain concerned about the wound, though especially appearance yesterday.
--> Will continue cefepime 1 g IV every 8 hours (dosed for renal insufficiency) for an additional 2 weeks with close follow-up.
IV sheet placed on paper chart.
Glucose control.
����������������������������������������������������������
Chief Complaint
-: Other (right foot osteo)
Subjective / Review of Systems
Review of Systems: No Fever and No Chills
Vital Signs / Physical Exam
Vital Signs
Vital Signs
Temp Pulse Resp BP Pulse Ox
98.2 F 62 17 126/56 97
02/18/24 15:15 02/18/24 15:15 02/18/24 15:15 02/18/24 15:15 02/18/24 15:15
Physical Exam
Constitutional: No Acute Distress, Comfortable and Non-toxic
Eyes: Sclera Anicteric
Pulmonary: Non Labored
Gastrointestinal: Non Distended
Wound: Other (Right foot dressed. No erythema extending up the leg.)
Neurological: Awake and Alert
Psychological: Calm
Objective Data
Lab Data
Lab Results
02/17/24 04:44
02/17/24 04:44
ESR 64 mm/hour (0-20) H 02/10/24 14:31
Estimated Creat Clear 39 ml/min 02/17/24 04:44
Lactic Acid Cancelled 02/10/24 18:30
Total Bilirubin 0.3 mg/dl (0.2-1.3) 02/11/24 06:39
AST 15 U/L (17-59) L 02/11/24 06:39
ALT 22 U/L (0-50) 02/11/24 06:39
Alkaline Phosphatase 101 U/L (38-126) 02/11/24 06:39
C-Reactive Protein 73.40 mg/L (0.0-10.00) H 02/10/24 14:31
Most recent labs reviewed.
Micro Results:
02/13/24 11:30 Wound Culture - Final
Bone Pseudomonas aeruginosa
Viridans Streptococcus Group
Gram Stain - Final
02/13/24 11:30 Anaerobic Culture - Final
Bone NO ANAEROBES ISOLATED
02/10/24 14:31 Blood Culture - Final
Blood/Venous No Growth - Final Report
02/10/24 14:31 Blood Culture - Final
Blood/Venous No Growth - Final Report
02/10/24 16:01 Wound Culture - Final
Foot - Right Pseudomonas aeruginosa
Escherichia coli
Gram negative bacilli
Enterococcus species
Coagulase neg. staphylococcus
Streptococcus species
Gram Stain - Final
02/10/24 18:16 MRSA Screen - Final
Nose No Methicillin Resistant Staphylococcus aureus isolated.
Wound/abscess/other Cult Preliminary 02/16/24-848
Rare Presumptive Viridans Streptococcus Group
Pseudomonas aeruginosa Isolated from enrichment broth
only.
1. Pseudomonas aeruginosa
M.I.C. RX
--------- ---
Cefepime <=2 S
Ceftazidime <=1 S
Ciprofloxacin <=0.25 S
Gentamicin <=4 S
Levofloxacin <=0.5 S
Meropenem <=1 S
Piperacillin/Tazobactam <=16 S
Tobramycin <=4 S

Imaging:
02/11/2024 MRI right lower extremity: Acute osteomyelitis of the first proximal and distal phalanges, along with the head of the first and second metatarsals. Mild first digit flexor tenosynovitis. Soft tissue wound to the plantar medial forefoot
with contiguous rim-enhancing abscess appreciated. Severe diabetic myopathy noted.
02/10/2024 X-ray right foot: No findings to suggest focal cortical bony destructive process. No radiopaque soft tissue foreign bodies noted. Soft tissue ulceration of the skin along the plantar region distally on the lateral view. Please see full
dictation for additional detail.

Pathology:
A. Toe, right great toe, amputation:
- Acute osteomyelitis.
- Skin and subcutaneous tissue with acute necrotizing inflammation.
B. Bone, �right clean margin�, excision:
- Fragmented pieces of bone, negative for acute inflammation.
C. Bone, 2nd metatarsal, right, biopsy:
- Bone and cartillage with no significant pathological abnormalities
[2024-02-18] MEDS: LIPITOR 80 MG PO (17:10)
[2024-02-18 17:15] LABS: Glucose - Point of Care 104 mg/dl (70-99)
[2024-02-18 20:10] VITALS: BP 144/63
[2024-02-18 21:24] LABS: Glucose - Point of Care 92 mg/dl (70-99)
[2024-02-18] MEDS: TYLENOL 650 MG PO (21:46)
[2024-02-18 23:35] VITALS: BP 125/64
[2024-02-19] MEDS: DILAUDID 0.5 MG IV (02:11)
[2024-02-19] MEDS: MAXIPIME 1000 MG IV (05:26)
[2024-02-19] MEDS: STERILE WATER FOR INJECTION 10 ML IV (05:26)
[2024-02-19 07:38] LABS: Glucose - Point of Care 123 mg/dl (70-99)
[2024-02-19 07:41] VITALS: BP 147/69
[2024-02-19] MEDS: PLAVIX 75 MG PO (08:09)
[2024-02-19] MEDS: NOVOLOG FLEXPEN-LOW RESISTANCE SC (08:09)
[2024-02-19] MEDS: LOW STRENGTH ASPIRIN 81 MG PO (08:09)
[2024-02-19] MEDS: COZAAR 25 MG PO (08:09)
[2024-02-19] MEDS: GLUCOTROL 5 MG PO (08:09)
[2024-02-19] MEDS: THERAGRAN 1 TABLET PO (08:09)
[2024-02-19] MEDS: LOPRESSOR 25 MG PO (08:10)
[2024-02-19] MEDS: JARDIANCE 10 MG PO (08:10)
[2024-02-19] MEDS: PRED FORTE 1% EYE DROPS 1 DROP LEFT EYE (08:11)
[2024-02-19] MEDS: PRED FORTE 1% EYE DROPS 1 DROP RIGHT EYE (08:11)
--- NOTE | 2024-02-19 08:28 | W.PN.ID1 ---
Date of Service
Date of Service: February 19, 2024
Today's Communication
Continue abx.
Assessment / Plan
Right foot osteomyelitis
- s/p right hallux amp and partial 1st met resection
- proximal margin NEG for residual osteo
Leukocytosis
Elevated ESR
Elevated CRP
Diabetes mellitus (uncontrolled; HbA1c = 8.3)
CAD
Dyslipidemia
Recommendations:
OR cultures 02/13/24 with Pseudomonas and Viridans Strep Group
Pathology noted. Osteomyelitis appears to have been resected.
--> Will continue cefepime 1 g IV every 8 hours (dosed for renal insufficiency) through 03/03/24, with close follow-up.
IV sheet placed on paper chart.
Glucose control.
����������������������������������������������������������
Chief Complaint
-: Other (right foot osteomyelitis)
Subjective / Review of Systems
Review of Systems: No Fever and No Chills
Vital Signs / Physical Exam
Vital Signs
Vital Signs
Temp Pulse Resp BP Pulse Ox
98.3 F 59 19 147/69 96
02/19/24 07:41 02/19/24 07:41 02/19/24 07:41 02/19/24 07:41 02/19/24 07:41
Physical Exam
Constitutional: No Acute Distress, Comfortable and Non-toxic
Eyes: Sclera Anicteric
Pulmonary: Non Labored
Gastrointestinal: Non Distended
Extremities: Edema (trace); Negative Cyanosis or Erythema
Neurological: Awake and Alert
Psychological: Calm
Lines: PICC
Objective Data
Lab Data
Lab Results
02/17/24 04:44
02/17/24 04:44
ESR 64 mm/hour (0-20) H 02/10/24 14:31
Estimated Creat Clear 39 ml/min 02/17/24 04:44
Lactic Acid Cancelled 02/10/24 18:30
Total Bilirubin 0.3 mg/dl (0.2-1.3) 02/11/24 06:39
AST 15 U/L (17-59) L 02/11/24 06:39
ALT 22 U/L (0-50) 02/11/24 06:39
Alkaline Phosphatase 101 U/L (38-126) 02/11/24 06:39
C-Reactive Protein 73.40 mg/L (0.0-10.00) H 02/10/24 14:31
Most recent labs reviewed.
Micro Results:
02/13/24 11:30 Wound Culture - Final
Bone Pseudomonas aeruginosa
Viridans Streptococcus Group
Gram Stain - Final
02/13/24 11:30 Anaerobic Culture - Final
Bone NO ANAEROBES ISOLATED
02/10/24 14:31 Blood Culture - Final
Blood/Venous No Growth - Final Report
02/10/24 14:31 Blood Culture - Final
Blood/Venous No Growth - Final Report
02/10/24 16:01 Wound Culture - Final
Foot - Right Pseudomonas aeruginosa
Escherichia coli
Gram negative bacilli
Enterococcus species
Coagulase neg. staphylococcus
Streptococcus species
Gram Stain - Final
02/10/24 18:16 MRSA Screen - Final
Nose No Methicillin Resistant Staphylococcus aureus isolated.
Wound/abscess/other Cult Preliminary 02/16/24-848
Rare Presumptive Viridans Streptococcus Group
Pseudomonas aeruginosa Isolated from enrichment broth
only.
1. Pseudomonas aeruginosa
M.I.C. RX
--------- ---
Cefepime <=2 S
Ceftazidime <=1 S
Ciprofloxacin <=0.25 S
Gentamicin <=4 S
Levofloxacin <=0.5 S
Meropenem <=1 S
Piperacillin/Tazobactam <=16 S
Tobramycin <=4 S

Imaging:
02/11/2024 MRI right lower extremity: Acute osteomyelitis of the first proximal and distal phalanges, along with the head of the first and second metatarsals. Mild first digit flexor tenosynovitis. Soft tissue wound to the plantar medial forefoot
with contiguous rim-enhancing abscess appreciated. Severe diabetic myopathy noted.
02/10/2024 X-ray right foot: No findings to suggest focal cortical bony destructive process. No radiopaque soft tissue foreign bodies noted. Soft tissue ulceration of the skin along the plantar region distally on the lateral view. Please see full
dictation for additional detail.

Pathology:
A. Toe, right great toe, amputation:
- Acute osteomyelitis.
- Skin and subcutaneous tissue with acute necrotizing inflammation.
B. Bone, �right clean margin�, excision:
- Fragmented pieces of bone, negative for acute inflammation.
C. Bone, 2nd metatarsal, right, biopsy:
- Bone and cartillage with no significant pathological abnormalities
Care Review
Plan reviewed with: Physician (Hospitalist)
--- NOTE | 2024-02-19 09:56 | W.PN.HOSP.TC ---
Today's Communication/Plan
-
dc home
Assessment / Plan
Assessment / Plan
73-year-old male past medical history of diabetes, CAD with stents, prior CABG, hypertension, hyperlipidemia, presented to the ER from ferruler office due to persistent diabetic right foot infection. Patient was recently admitted to from 01/08 to
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 He had gradual improvement following
discharge but then had acute worsening 2 days CARTOGRAPHY SUPERVISOR.
He states that the wound on the sole of the right foot seems unchanged but noticed that there was worsening redness and swelling surrounding the wound on the medial aspect of the right great toe where he previously had a callus. He has significant
pain of his right foot. He saw ferruler who sent him to the emergency room.
He does consume 1 drink of alcohol every few days. He denies smoking.
Assessment:
Diabetic foot infection of right medial aspect with surrounding cellulitis and acute OM of the first proximal and distal phalanges
Stable diabetic foot ulcer on plantar surface of foot
- MR: acute OM of the first proximal and distal phalanges, and the heads of the first and second metatarsals. Also noted mild first digit flexor tenosynovitis, likely infectious. Soft tissue wounds of the plantar medial forefoot with contiguous
rim-enhancing abscess wrapping around the plantar aspect of the first metatarsophalangeal joint. Severe diabetic myopathy.
- s/p right partial first Ray amputation with bone biopsy of the second metatarsal bone by Dr. Espinoza 02/12. Follow wound care orders.
- Pseudomonas and Viridans strep in cultures. on Cefepime per ID for 2 weeks (Midline) placed. Home infusion setup in progress.
- pain control
Vancomycin infiltration into LUE
- s/p 5 doses Hyaluronidase
- clinically improved
CKD stage 3b
- monitor labs
Type 2 diabetes
- continue glipizide/Jardiance
- Insulin sliding scale
Essential hypertension
- continue metoprolol/ARB
Coronary artery disease with history of stents, CABG
- continue aspirin, statin, Plavix
Hyperlipidemia
- continue statin
DVT ppx: SCDs
Code: Full
More than 30 minutes spent in discharge including
Final examination of the patient
Summarizing hospital stay
Instructions for continuing care to all relevant caregivers
Preparation of discharge records, prescriptions, and referral forms
Total time spent (in minutes): 45
Anticipated Discharge: Today
Subjective/Interval History
-
Date of Service: February 19, 2024
no new complaints
for dc this AM for home teaching
Objective Data
-
Vital Signs:
Vital Signs
Temp Pulse Resp BP Pulse Ox
98.3 F 59 19 147/69 96
02/19/24 07:41 02/19/24 07:41 02/19/24 07:41 02/19/24 08:10 02/19/24 07:41
I&O
02/18/24 02/19/24 02/20/24
06:59 06:59 06:59
Intake Total 1560 / 1560 1080 / 1080
Balance 1560 / 1560 1080 / 1080
Physical Exam
-
General: No Apparent Distress
HEENT: Normocephalic and Atraumatic
Respiratory: Negative Wheezes
Cardiac: Regular Rhythm and S1/S2
GI: Soft
Genito-urinary: No Costovertebral Tender
Neuro: AO x 3
Psych: Calm
Data Reviewed
-
Total Time Spent with Patient (in minutes): 45
Labs: Labs Reviewed by me
--- NOTE | 2024-02-19 10:02 | W.DS.TRANS ---
DC Summary - Cushion Former
-
Discharge Instructions:
Discharge Diagnosis/Procedures diabetic foot infection, osteomyelitis s/p
partial amputation 02/12
Diet Diabetic, Carb Controlled
Activity As tolerated
Bathing Restrictions None
Other Services VN
Instructions:
Stand-Alone Forms:
Changes to Home Medications: No
Discharge Medications:
DC Medications w/original date entered in [employer]
nitroglycerin 0.4 mg sublingual tablet 0.4 mg sublingual [id number] PRN chest pain ##25 12/30/16
atorvastatin 40 mg tablet 40 mg PO QPM High cholesterol 09/05/22
empagliflozin 10 mg tablet (Jardiance) 10 mg PO DAILY Diabetes 09/05/22
prednisolone acetate 1 % eye drops,suspension 1 drp RIGHT EYE DAILY Eye condition 09/05/22
sildenafil 100 mg tablet 100 mg PO DAILY PRN ED 09/05/22
therapeutic multivitamin 1 tab PO DAILY Supplement 09/05/22
prednisolone acetate 1 % eye drops,suspension 1 drp LEFT EYE BID Eye Condition 01/09/24
aspirin 81 mg chewable tablet 81 mg PO DAILY Blood Clot Prevention/Tx 02/10/24
clopidogrel 75 mg tablet 75 mg PO DAILY Blood Clot Prevention/Tx 02/10/24
glipizide 5 mg tablet 5 mg PO BID@0800,1700 Diabetes 02/10/24
losartan 25 mg tablet 25 mg PO DAILY Blood Pressure 02/10/24
metoprolol tartrate 25 mg tablet 25 mg PO BID Blood Pressure 02/10/24
cefepime 1 gram solution for injection 1,000 mg IV Q8H #42 ea 02/19/24
miconazole nitrate 2 % topical powder (Miconazorb AF) 1 applic topical BIDPRN PRN yeasty red rash #85 grams 02/19/24
Home Medication Changes
Pending Results: No
Total time spent discharging patient (in min): 42
[2024-02-19 11:19] VITALS: BP 151/69
--- NOTE | 2024-02-19 13:45 | CM ---
Patient has been medically cleared for discharge to home with [facility] infusion services and [facility] VN and PT/OT. [facility] will deliver medications and equipment to home between 1:00 to 2:00 PM. [facility] will provide training and
education to patient and in the home today.
transported home.
[facility] FAX # [phone]
[facility] FAX # [phone]
== END 2024-02-19 11:40 | disposition home health service (06) | DRG 617 ==
LOC: 2 SOUTH 17:06
PROVIDERS: Internal Medicine; Physician Assistant; Student in an Organized Health Care Education/Training Program; ADMITTING PHYSICIAN Hospitalist; ATTENDING PHYSICIAN Internal Medicine; CONSULT PHYSICIAN Podiatrist; CONSULT PHYSICIAN Surgery Vascular Surgery; EMERGENCY PHYSICIAN Emergency Medicine; FAMILY PHYSICIAN Physician Assistant Medical; OTHER PHYSICIAN Internal Medicine Infectious Disease
PROC: 0QBN0ZX Excision of Right Metatarsal, Open Approach, Diagnostic (ICD-10-PCS; 2024-02-13)
PROC: 0Y6M0Z9 Detachment at Right Foot, Partial 1st Ray, Open Approach (ICD-10-PCS; 2024-02-13)
DX: E11.69 Type 2 diabetes mellitus with other specified complication (principal); L03.115 Cellulitis of right lower limb; L97.419 Non-pressure chronic ulcer of right heel and midfoot with unspecified severity; M86.171 Other acute osteomyelitis, right ankle and foot; T80.818A Extravasation of other vesicant agent, initial encounter; E11.628 Type 2 diabetes mellitus with other skin complications; I25.10 Atherosclerotic heart disease of native coronary artery without angina pectoris; E78.00 Pure hypercholesterolemia, unspecified; E11.22 Type 2 diabetes mellitus with diabetic chronic kidney disease; M65.871 Other synovitis and tenosynovitis, right ankle and foot; E11.621 Type 2 diabetes mellitus with foot ulcer; N17.9 Acute kidney failure, unspecified; B96.5 Pseudomonas (aeruginosa) (mallei) (pseudomallei) as the cause of diseases classified elsewhere; B95.4 Other streptococcus as the cause of diseases classified elsewhere; N18.32 Chronic kidney disease, stage 3b; I12.9 Hypertensive chronic kidney disease with stage 1 through stage 4 chronic kidney disease, or unspecified chronic kidney disease; Z95.1 Presence of aortocoronary bypass graft; Z91.041 Radiographic dye allergy status; Z91.040 Latex allergy status; Z88.8 Allergy status to other drugs, medicaments and biological substances; Z91.048 Other nonmedicinal substance allergy status; Z79.82 Long term (current) use of aspirin; Z79.02 Long term (current) use of antithrombotics/antiplatelets; Z79.84 Long term (current) use of oral hypoglycemic drugs; Z95.5 Presence of coronary angioplasty implant and graft; Z86.73 Personal history of transient ischemic attack (TIA), and cerebral infarction without residual deficits; Y84.8 Other medical procedures as the cause of abnormal reaction of the patient, or of later complication, without mention of misadventure at the time of the procedure; Y92.239 Unspecified place in hospital as the place of occurrence of the external cause
CPT/HCPCS: 88304; 88305; 88307; 88311; 73630; 73720; 80048; 80053; 80202; 82962; 83605; 83735; 85025; 85027; 85652; 86140; 87040; 87070; 87071; 87075; 87077; 87186; 87205; 93922; 93925; 96365; 96366; 96367; 96375; 97116; 97162; 97166; 97530; 99284; A9575

== ENCOUNTER → 2024-02-29 15:20 | Outpatient (REF) | payer MEDICARE, OTHER, SELFPAY ==
[2024-02-29 17:08] LABS: % Basophils 1.1 % (0-2); % Eosinophils 4.8 % (0-6); % Immature Granulocytes 0.4 % (0-0.5); % Lymphocytes 15.2 % (20.5-51.1); % Monocytes 7.6 % (1.7-9.3); % Neutrophils 70.9 % (42.2-75.2); Absolute Basophils 0.1 10^3/uL (0-0.2); Absolute Eosinophils 0.4 10^3/uL (0-0.7); Absolute Lymphocytes 1.1 10^3/uL (1.2-3.4); Absolute Monocytes 0.6 10^3/uL (0.1-0.6); Absolute Neutrophils 5.3 10^3/uL (1.4-6.5); Hematocrit 38.5 % (39.0-52.0); Hemoglobin 11.5 g/dL (13.0-18.0); Mean Corp Hgb Conc. 29.9 g/dL (33.0-37.0); Mean Corpuscular Hgb 27.5 pg (27.0-31.0); Mean Corpuscular Volume 92.1 fL (80.0-94.0); Nucleated Red Blood Cells % 0 % (-); Platelet Count 195 10^3/uL (130-400); Red Blood Cell Count 4.18 10^6/uL (4.70-6.10); Red Cell Dist. Width 14.3 % (11.5-14.5); White Blood Cell Count 7.5 10^3/uL (4.8-10.8)
[2024-02-29 17:28] LABS: Blood Urea Nitrogen 45 mg/dl (9-20); Carbon Dioxide 23 mmol/L (22-30); Chloride 110 mmol/L (98-107); Glucose 153 mg/dl (70-99); Potassium 4.6 mmol/L (3.5-5.1); Sodium 144 mmol/L (135-145); eGFR 45.78
== END ==
LOC: REG 15:20
PROVIDERS: ATTENDING PHYSICIAN Internal Medicine Infectious Disease; FAMILY PHYSICIAN Physician Assistant Medical
DX: M86.171 Other acute osteomyelitis, right ankle and foot (principal)
CPT/HCPCS: 36415; 80048; 85025

== ENCOUNTER → 2024-03-08 16:15 | Outpatient (REF) | payer MEDICARE, OTHER, SELFPAY ==
[2024-03-08 17:05] LABS: % Eosinophils 7.7 % (0-6); % Immature Granulocytes 0.4 % (0-0.5); % Lymphocytes 17.8 % (20.5-51.1); % Monocytes 8.1 % (1.7-9.3); Absolute Basophils 0.1 10^3/uL (0-0.2); Absolute Eosinophils 0.6 10^3/uL (0-0.7); Absolute Lymphocytes 1.3 10^3/uL (1.2-3.4); Absolute Monocytes 0.6 10^3/uL (0.1-0.6); Absolute Neutrophils 4.8 10^3/uL (1.4-6.5); Hematocrit 40.1 % (39.0-52.0); Hemoglobin 12.1 g/dL (13.0-18.0); Mean Corp Hgb Conc. 30.2 g/dL (33.0-37.0); Mean Corpuscular Hgb 27.5 pg (27.0-31.0); Mean Corpuscular Volume 91.1 fL (80.0-94.0); Mean Platelet Volume 12.6 fL (7.4-10.4); Nucleated Red Blood Cells % 0 % (-); Platelet Count 135 10^3/uL (130-400); Red Cell Dist. Width 15.1 % (11.5-14.5); White Blood Cell Count 7.3 10^3/uL (4.8-10.8)
[2024-03-08 17:26] LABS: Blood Urea Nitrogen 47 mg/dl (9-20); Carbon Dioxide 20 mmol/L (22-30); Chloride 112 mmol/L (98-107); Glucose 189 mg/dl (70-99); Potassium 5.1 mmol/L (3.5-5.1); Sodium 142 mmol/L (135-145); eGFR 45.78
== END ==
LOC: REG 16:15
PROVIDERS: ATTENDING PHYSICIAN Internal Medicine Infectious Disease; FAMILY PHYSICIAN Physician Assistant Medical
DX: M86.171 Other acute osteomyelitis, right ankle and foot (principal)
CPT/HCPCS: 36415; 80048; 85025

== ENCOUNTER → 2024-03-15 11:44 | Outpatient (REF) | payer MEDICARE, OTHER, SELFPAY ==
[2024-03-15 12:29] LABS: % Eosinophils 6.8 % (0-6); % Immature Granulocytes 0.5 % (0-0.5); % Lymphocytes 18.8 % (20.5-51.1); % Monocytes 8.7 % (1.7-9.3); % Neutrophils 64.2 % (42.2-75.2); Absolute Basophils 0.1 10^3/uL (0-0.2); Absolute Eosinophils 0.4 10^3/uL (0-0.7); Absolute Lymphocytes 1.2 10^3/uL (1.2-3.4); Absolute Monocytes 0.5 10^3/uL (0.1-0.6); Hematocrit 38.7 % (39.0-52.0); Hemoglobin 11.5 g/dL (13.0-18.0); Mean Corp Hgb Conc. 29.7 g/dL (33.0-37.0); Mean Corpuscular Hgb 27.3 pg (27.0-31.0); Mean Corpuscular Volume 91.9 fL (80.0-94.0); Mean Platelet Volume 11.7 fL (7.4-10.4); Nucleated Red Blood Cells % 0 % (-); Platelet Count 127 10^3/uL (130-400); Red Blood Cell Count 4.21 10^6/uL (4.70-6.10); Red Cell Dist. Width 15.2 % (11.5-14.5); White Blood Cell Count 6.2 10^3/uL (4.8-10.8)
[2024-03-15 12:49] LABS: Blood Urea Nitrogen 60 mg/dl (9-20); Calcium 9.9 mg/dl (8.4-10.2); Carbon Dioxide 18 mmol/L (22-30); Chloride 113 mmol/L (98-107); Glucose 181 mg/dl (70-99); Potassium 5.1 mmol/L (3.5-5.1); Sodium 142 mmol/L (135-145); eGFR 45.78
== END ==
LOC: REG 11:44
PROVIDERS: ATTENDING PHYSICIAN Internal Medicine Infectious Disease; FAMILY PHYSICIAN Physician Assistant Medical
DX: M86.171 Other acute osteomyelitis, right ankle and foot (principal)
CPT/HCPCS: 36415; 80048; 85025

== ENCOUNTER → 2024-05-11 08:05 | Outpatient (REF) | payer MEDICARE, OTHER, SELFPAY | LOC: HWRCS 08:05 | PROVIDERS: ATTENDING PHYSICIAN Internal Medicine Interventional Cardiology; FAMILY PHYSICIAN Physician Assistant Medical | DX: I25.10 Atherosclerotic heart disease of native coronary artery without angina pectoris (principal); I25.2 Old myocardial infarction | CPT/HCPCS: 93306 ==

== ENCOUNTER → 2024-05-12 07:16 | Outpatient (REF) | payer MEDICARE, OTHER, SELFPAY | LOC: DHCBC/DCA 07:16 | PROVIDERS: ATTENDING PHYSICIAN Internal Medicine Interventional Cardiology; FAMILY PHYSICIAN Physician Assistant Medical | DX: I25.10 Atherosclerotic heart disease of native coronary artery without angina pectoris (principal); I25.2 Old myocardial infarction | CPT/HCPCS: 78452; 93017; A9500; J2785 ==

== ENCOUNTER → 2024-07-28 09:00 | Outpatient (REF) | payer MEDICARE, OTHER, SELFPAY | LOC: CLAB 09:00 | PROVIDERS: ATTENDING PHYSICIAN Podiatrist | DX: M86.171 Other acute osteomyelitis, right ankle and foot (principal) | CPT/HCPCS: 88305; 88311; 87070; 87077; 87147; 87186; 87205 ==

== ENCOUNTER → 2025-07-10 09:31 | Outpatient (REF) | payer MEDICARE, OTHER, SELFPAY ==
[2025-07-10 10:17] LABS: Hematocrit 42.4 % (39.0-52.0); Hemoglobin 13.2 g/dL (13.0-18.0); Mean Corp Hgb Conc. 31.1 g/dL (33.0-37.0); Mean Corpuscular Volume 91.0 fL (80.0-94.0); Nucleated Red Blood Cells % 0 % (-); Platelet Count 144 10^3/uL (130-400); Red Cell Dist. Width 13.1 % (11.5-14.5)
[2025-07-10 10:53] LABS: Microalb - Urine Creatinine 74.800 mg/dl
[2025-07-10 11:18] LABS: ALT (SGPT) 25 U/L (0-50); AST (SGOT) 19 U/L (17-59); Albumin 4.5 g/dl (3.5-5.0); Alkaline Phosphatase 80 U/L (38-126); Blood Urea Nitrogen 45 mg/dl (9-20); Calcium 9.1 mg/dl (8.4-10.2); Carbon Dioxide 21 mmol/L (22-30); Chloride 111 mmol/L (98-107); Glucose 214 mg/dl (70-99); HDL Cholesterol 37 mg/dl; LDL Cholesterol, Calculated 95 mg/dl; Potassium 4.6 mmol/L (3.5-5.1); Sodium 141 mmol/L (135-145); Total Protein 6.7 g/dl (6.3-8.2); Very Low Density Lipoprotein 60 mg/dl (0-30); eGFR 34.59
[2025-07-10 11:43] LABS: PSA, Total - Screen 1.88 ng/ml (0.0-4.0)
[2025-07-10 11:47] LABS: Glycohemoglobin (HgbA1c) 10.4 % (4.0-5.6)
[2025-07-10 12:27] LABS: Microalbumin, Random Urine 39.6 mg/dl (0.6-1.7)
== END ==
LOC: REG 09:31
PROVIDERS: ATTENDING PHYSICIAN Physician Assistant Medical
DX: E11.59 Type 2 diabetes mellitus with other circulatory complications (principal); E11.65 Type 2 diabetes mellitus with hyperglycemia; I10 Essential (primary) hypertension; E78.2 Mixed hyperlipidemia; N18.32 Chronic kidney disease, stage 3b; Z80.42 Family history of malignant neoplasm of prostate
CPT/HCPCS: 36415; 80053; 80061; 82043; 82570; 83036; 85025; G0103